=== PATIENT | male | born 1955 | race American Indian/Alaskan Native ===

== ENCOUNTER 2019-01-28 18:30 | Inpatient (IN) | payer MEDICARE ==
[2019-01-28] MEDS ORDERED: LASIX IV ONE (18:42)
[2019-01-28] MEDS ORDERED: DUONEB *Not for PRN Use IH ONE ×2 (18:51→18:52)
--- NOTE | 2019-01-28 19:03 | Emergency Department Report ---
ED Shortness of Breath HPI - General Chief Complaint: Chest Pain Stated Complaint: CHEST PAIN/EARNESTINE Time Seen by Provider: 01/28/19 18:36 Source: patient, EMS Mode of arrival: Stretcher Limitations: No Limitations - History of Present Illness Initial Comments: Mr. Reeder is 63 yo male with hx of CHF, COPD, HTN, CVA, Atrial Flutter, seizure disorder, CKD, CAD, who presents with shortness of breath for one day, leg swelling for several months worse over the past 2 weeks. He has swelling from feet to lower abdomen. No cough. Minimal nondescript chest pain. Mr. Reeder was prescribed 80 milligrams daily of furosemide. However the pharmacy only provided 40 mg dosing. EMS administered albuterol nebulizer, nitroglycerin, aspirin and 40 mg IV fur osemide. PCP Dr. Casas Cardiology Dr. Louis BROWN Complaint: shortness of breath - Related Data Home Medications Medication Instructions Recorded Confirmed Last Taken Minoxidil 10 mg PO DAILY 05/24/15 08/01/18 07/31/18 Pravastatin [Pravachol (Nf)] 40 mg PO DAILY 08/01/18 08/01/18 07/31/18 Warfarin Sodium [Jantoven] 7.5 mg PO DAILY 08/01/18 08/01/18 07/31/18 Previous Rx's Medication Instructions Recorded Last Taken Type Albuterol *Only Ed* [Proventil 2.5 mg IH PRN PRN #90 nebu 05/25/15 07/31/18 Rx 0.5% NEBS] Aspirin 81 mg PO DAILY #30 tab.chew 06/15/18 07/31/18 Rx Furosemide [Lasix TAB] 40 mg PO QDAY #30 tablet 06/15/18 07/31/18 Rx Lisinopril [Zestril TAB] 40 mg PO QDAY #30 tablet 06/15/18 07/31/18 Rx Metoprolol [Lopressor TAB] 100 mg PO DAILY #30 tablet 06/15/18 07/31/18 Rx amLODIPine [Norvasc] 10 mg PO DAILY #30 tablet 06/15/18 07/31/18 Rx HYDROcodone/HOMATROP 5-1.5 10 ml PO Q6H PRN 3 Days #1 udc 08/05/18 Unknown Rx [HYDROcodone-Homatropin 5-1.5 mg per 5 ML] Prednisone [predniSONE 10 mg 10 mg PO .TAPER #1 tab.ds.pk 08/05/18 Unknown Rx (6-Day Pack, 21 Tabs)] dilTIAZem CD [Cardizem CD] 120 mg PO QDAY #30 capsule 08/05/18 Unknown Rx Allergies Allergy/AdvReac Type Severity Reaction Status Date / Time No Known Allergies Allergy Verified 10/12/13 04:55 ED Review of Systems ROS: Stated complaint: CHEST PAIN/EARNESTINE Other details as noted in HPI Comment: All other systems reviewed and negative Constitutional: malaise Respiratory: shortness of breath Cardiovascular: chest pain, edema ED Past Medical Hx - Past Medical History Previous Medical History?: Yes Hx Hypertension: Yes Hx CVA: Yes Hx Heart Attack/AMI: Yes (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, last 2009) Hx Congestive Heart Failure: Yes Hx Diabetes: No Hx Deep Vein Thrombosis: Yes Hx Pulmonary Embolism: No Hx Renal Disease: Yes (acute renal failure) Hx Arthritis: Yes Hx Seizures: Yes () Hx Asthma: No Hx COPD: Yes Hx Tuberculosis: No Hx Dementia: No Hx HIV: No Additional medical history: Heart Stent x 3 - Surgical History Hx Coronary Stent: Yes (x3) Hx Open Heart Surgery: Yes (CABG 2 bypass) Hx Pacemaker: No Hx Internal Defibrillator: No Hx Cholecystectomy: No Hx Breast Surgery: No - Social History Smoking Status: Current Every Day Smoker - Medications Home Medications: Home Medications Medication Instructions Recorded Confirmed Last Taken Type Minoxidil 10 mg PO DAILY 05/24/15 08/01/18 07/31/18 History Albuterol *Only Ed* [Proventil 2.5 mg IH PRN PRN #90 nebu 05/25/15 08/01/18 07/31/18 Rx 0.5% NEBS] Aspirin 81 mg PO DAILY #30 tab.chew 06/15/18 08/01/18 07/31/18 Rx Furosemide [Lasix TAB] 40 mg PO QDAY #30 tablet 06/15/18 08/01/18 07/31/18 Rx Lisinopril [Zestril TAB] 40 mg PO QDAY #30 tablet 06/15/18 08/01/18 07/31/18 Rx Metoprolol [Lopressor TAB] 100 mg PO DAILY #30 tablet 06/15/18 08/01/18 07/31/18 Rx amLODIPine [Norvasc] 10 mg PO DAILY #30 tablet 06/15/18 08/01/18 07/31/18 Rx Pravastatin [Pravachol (Nf)] 40 mg PO DAILY 08/01/18 08/01/18 07/31/18 History Warfarin Sodium [Jantoven] 7.5 mg PO DAILY 08/01/18 08/01/18 07/31/18 History HYDROcodone/HOMATROP 5-1.5 10 ml PO Q6H PRN 3 Days #1 udc 08/05/18 Unknown Rx [HYDROcodone-Homatropin 5-1.5 mg per 5 ML] Prednisone [predniSONE 10 mg 10 mg PO .TAPER #1 tab.ds.pk 08/05/18 Unknown Rx (6-Day Pack, 21 Tabs)] dilTIAZem CD [Cardizem CD] 120 mg PO QDAY #30 capsule 08/05/18 Unknown Rx ED Physical Exam - General Limitations: No Limitations General appearance: alert, in no apparent distress - Head Head exam: Present: atraumatic, normocephalic - Eye Eye exam: Present: normal appearance - ENT ENT exam: Present: mucous membranes moist - Neck Neck exam: Present: normal inspection, full ROM - Respiratory Respiratory exam: Present: respiratory distress, wheezes, rales, decreased breath sounds. Absent: chest wall tenderness, accessory muscle use, prolonged expiratory - Cardiovascular Cardiovascular Exam: Present: regular rate, normal rhythm, normal heart sounds. Absent: rubs, gallop - GI/Abdominal GI/Abdominal exam: Present: soft, other (abdominal wall edema). Absent: distended, tenderness, guarding, rebound - Extremities Exam Extremities exam: Present: other (pitting edema from feet to thigh to abdomen with lichenification) - Back Exam Back exam: Present: normal inspection - Neurological Exam Neurological exam: Present: alert, oriented X3 - Psychiatric Psychiatric exam: Present: normal affect, normal mood - Skin Skin exam: Present: warm, dry, intact, normal color. Absent: rash ED Course Vital Signs 01/28/19 01/28/19 01/28/19 18:41 18:45 18:54 Temperature Pulse Rate 104 H Pulse Rate [ 96 H Anterior Bilateral Throughout] Respiratory 17 14 Rate Respiratory 18 Rate [Anterior Bilateral Throughout] Blood Pressure O2 Sat by Pulse 97 Oximetry 01/28/19 01/28/19 01/28/19 19:00 19:12 20:09 Temperature 98.3 F Pulse Rate 92 H 90 Pulse Rate [ Anterior Bilateral Throughout] Respiratory 17 Rate Respiratory Rate [Anterior Bilateral Throughout] Blood Pressure 154/82 152/81 O2 Sat by Pulse 100 Oximetry ED Medical Decision Making - Lab Data Result diagrams: 01/28/19 18:49 01/28/19 18:49 - EKG Data 01/28/19 19:04 EKG obtained 1841 Atrial fibrillation rate 95 beats normal axis nonspecific T wave pattern widened QRS - Radiology Data Radiology results: report reviewed, image reviewed interpreted by me: AP portable chest: Cardiomegaly and alveolar edema no infiltrate no effusion - Medical Decision Making Mr. Reeder presents with acute respiratory failure, hypoxia requiring oxygen supplementation. Acute CHF evident with pulmonary edema and anasarca. Hx of COPD and tobacco abuse also contributing factors. Treated with IV furosemide, bronchodilator therapy, steroids. Admitted in fair condition. Admitted to the service of Dr. Cassa. I provided bridging orders. Critical care attestation.: If time is entered above; I have spent that time in minutes in the direct care of this critically ill patient, excluding procedure time. ED Disposition Clinical Impression: Acute respiratory failure with hypoxia, Acute exacerbation of CHF (congestive heart failure), COPD with acute exacerbation Disposition: OP ADMIT IP TO THIS HOSP Is pt being admited?: Yes Does the pt Need Aspirin: No Condition: Stable
[2019-01-28 19:09] LABS: Basophils # (Auto) 0.1 K/mm3 (0.0-0.1); Basophils % (Auto) 0.8 % (0.0-1.8); Eosinophils # (Auto) 0.1 K/mm3 (0.0-0.4); Eosinophils % (Auto) 0.9 % (0.0-4.3); Hematocrit 32.6 % (35.5-45.6); Hemoglobin 10.4 gm/dl (11.8-15.2); Lymphocytes # (Auto) 1.2 K/mm3 (1.2-5.4); Lymphocytes % (Auto) 16.1 % (13.4-35.0); Mean Corpuscular HGB Conc 32 % (32-34); Mean Corpuscular Volume 82 fl (84-94); Monocytes # (Auto) 0.9 K/mm3 (0.0-0.8); Monocytes % (Auto) 12.2 % (0.0-7.3); Platelet Count 247 K/mm3 (140-440); Red Blood Count 3.95 M/mm3 (3.65-5.03); Red Cell Distribution Width 18.2 % (13.2-15.2)
[2019-01-28 19:29] LABS: Alanine Aminotransferase 15 units/L (7-56); Albumin 3.9 g/dL (3.9-5); BUN/Creatinine Ratio 19; Blood Urea Nitrogen 25 mg/dL (9-20); Calcium 9.1 mg/dL (8.4-10.2); Hemolysis Index 13
[2019-01-28 19:43] LABS: INR 2.39 (0.87-1.13)
[2019-01-28] MEDS ORDERED: DELTASONE PO ONE (19:51)
[2019-01-28] MEDS ORDERED: LOPRESSOR PO ONE (19:51)
--- NOTE | 2019-01-28 19:59 | XRay Report ---
PROCEDURE: Chest. TECHNIQUE: Portable AP view. HISTORY: Dyspnea . COMPARISONS: Chest 08/03/2018. Dictation not available. FINDINGS: The heart size is enlarged. There is moderate tortuosity of the thoracic aorta. The lungs are clear a nd well expanded. There are no pleural effusions. The soft tissues are unremarkable. Median sternotom y wires are present. IMPRESSION: Cardiomegaly. This document is electronically signed by Justo Fisher MD., January 28 2019 07:56:46 PM ET
--- NOTE | 2019-01-28 22:01 | History and Physical Report ---
History of Present Illness Date of examination: 01/28/19 Date of admission: 01/28/19 20:23 Chief complaint: Shortness of breath, chest pain, swelling of the lower extremities - 2-3 weeks duration History of present illness: Patient is a 63-year-old gentleman who has a history of COPD, CHF with ejection fraction of 30-45% on 06/06/18, CVA, atrial fibrillation, hypertension, seizure disorder, coronary artery disease status post stent placement and subsequent CABG in 2008, tobacco use disorder, seizure disorder presented emergency department for progressively worsening shortness of breath that started 2-3 weeks ago. Has associated chest pain that is dull and substernal in location, nonexertional. No radiation. Not associated with diaphoresis. Has cough that is productive of whitish sputum. Has dyspnea on slight exertion. Has been having progressively worsening swelling of the lower extremities as well as the abdomen. Patient continues to smoke about a pack of cigarettes a day for the past 40 years. Presented to the emergency department on account of worsening symptoms. At the emergency department, proBNP was 2995. ABG was remarkable for hypoxia with pulse ox of 76. Patient was therapeutic with his INR with level of 2.39. Chest x-ray shows evidence of cardiomegaly without any infiltrate or pulmonary congestion. EKG showed Afib. First level of troponin T was normal. Admisson was requested for further evaluation and treatments. Past History Past Medical History: atrial fib, CAD, COPD, heart failure, hypertension Past Surgical History: CABG Social history: smoking. denies: alcohol abuse Family history: other (breast cancer and leukemia in his sister and brother respectively) Medications and Allergies Allergies Allergy/AdvReac Type Severity Reaction Status Date / Time No Known Allergies Allergy Verified 10/12/13 04:55 Home Medications Medication Instructions Recorded Confirmed Last Taken Type Minoxidil 10 mg PO DAILY 05/24/15 01/28/19 07/31/18 History Albuterol *Only Ed* [Proventil 2.5 mg IH PRN PRN #90 nebu 05/25/15 01/28/19 07/31/18 Rx 0.5% NEBS] Aspirin 81 mg PO DAILY #30 tab.chew 06/15/18 01/28/19 07/31/18 Rx Furosemide [Lasix TAB] 40 mg PO QDAY #30 tablet 06/15/18 01/28/19 07/31/18 Rx Lisinopril [Zestril TAB] 40 mg PO QDAY #30 tablet 06/15/18 01/28/19 07/31/18 Rx Metoprolol [Lopressor TAB] 100 mg PO DAILY #30 tablet 06/15/18 01/28/19 07/31/18 Rx amLODIPine [Norvasc] 10 mg PO DAILY #30 tablet 06/15/18 01/28/19 01/28/19 Rx 0800 Pravastatin [Pravachol (Nf)] 40 mg PO DAILY 08/01/18 01/28/19 07/31/18 History Warfarin Sodium [Jantoven] 7.5 mg PO DAILY 08/01/18 01/28/19 07/31/18 History HYDROcodone/HOMATROP 5-1.5 10 ml PO Q6H PRN 3 Days #1 udc 08/05/18 01/28/19 Unknown Rx [HYDROcodone-Homatropin 5-1.5 mg per 5 ML] dilTIAZem CD [Cardizem CD] 120 mg PO QDAY #30 capsule 08/05/18 Unknown Rx Clonidine HCl [Catapres] 0.3 mg PO BID 01/28/19 01/28/19 Unknown History Review of Systems Constitutional: weight gain Ears, nose, mouth and throat: no ear pain, no ear discharge, no tinnitis, no decreased hearing Cardiovascular: chest pain, orthopnea, palpitations, edema, shortness of breath, dyspnea on exertion, no lightheadedness Respiratory: cough, cough with sputum, shortness of breath, dyspnea on exertion Gastrointestinal: no abdominal pain, no nausea, no vomiting, no diarrhea, no constipation Genitourinary Male: no dysuria, no flank pain, no nocturia Musculoskeletal: no neck stiffness, no neck pain, no low back pain Integumentary: no rash, no pruritis, no redness, no sores Neurological: no paralysis, no weakness, no parathesias, no ataxia Psychiatric: no anxiety, no memory loss, no change in sleep habits Exam - Physical Exam Narrative exam: Constitutional: Well-nourished well-developed. In no distress Head: Normocephalic atraumatic Eyes: Pupils are equal round and reactive to light Nose: No enlarged turbinates, no septal deviation. Mouth: Moist mucous membranes. Neck: Supple no thyromegaly. No bruit. No JVD Heart: Regular rate and rhythm, S1-S2 normal. No rubs murmurs or gallop Lungs: Clear to auscultation bilaterally. no rales or rhonchi Abdomen: Soft, nontender. Bowel sound are present. Extremities: 2+ pedal edema, no cyanosis, no clubbing. Neuro: Alert oriented Oriented x3. No focal sensory or motor deficit. Skin: No rashes or hyperpigmented spots Musculoskeletal system: No joint pain or swelling Hematological: No petechia or subcutanous hemorrhages. Immunological: No multiple septic spots on the skin Lymphatic: No generalized lymphadenopathy Psychiatry: Euthymic. Calm. - Constitutional Vitals: Temp Pulse Resp BP Pulse Ox 98.3 F 98 H 20 157/88 97 01/28/19 19:12 01/28/19 21:15 01/28/19 21:15 01/28/19 21:15 01/28/19 21:15 Results - Labs CBC & Chem 7: 01/29/19 04:38 01/29/19 04:38 Labs: Abnormal lab results 01/28/19 01/28/19 01/28/19 Range/Units 18:49 18:49 18:49 Hgb 10.4 L (11.8-15.2) gm/dl Hct 32.6 L (35.5-45.6) % MCV 82 L (84-94) fl MCH 26 L (28-32) pg RDW 18.2 H (13.2-15.2) % [place] % (Auto) 12.2 H (0.0-7.3) % [place] # 0.9 H (0.0-0.8) K/mm3 PT (12.2-14.9) Sec. INR (0.87-1.13) POC ABG pH (7.35-7.45) POC ABG pO2 (80-105) BUN 25 H (9-20) mg/dL Glucose 123 H (75-100) mg/dL NT-Pro-B Natriuret Pep 2995 H (0-900) pg/mL 01/28/19 01/28/19 Range/Units 19:13 20:54 Hgb (11.8-15.2) gm/dl Hct (35.5-45.6) % MCV (84-94) fl MCH (28-32) pg RDW (13.2-15.2) % [place] % (Auto) (0.0-7.3) % [place] # (0.0-0.8) K/mm3 PT 27.7 H (12.2-14.9) Sec. INR 2.39 H (0.87-1.13) POC ABG pH 7.456 H (7.35-7.45) POC ABG pO2 76 L (80-105) BUN (9-20) mg/dL Glucose (75-100) mg/dL NT-Pro-B Natriuret Pep (0-900) pg/mL Assessment and Plan Patient is a 63-year-old gentleman who has a history of COPD, CHF with ejection fraction of 30-45% on 06/06/18, CVA, atrial fibrillation, hypertension, seizure disorder, coronary artery disease status post stent placement and subsequent CABG in 2008, tobacco use disorder, seizure disorder presented emergency department for progressively worsening shortness of breath that started 2-3 weeks ago. Just been today that was resistant and location, nonexertional. No radiation. Not associated with diaphoresis. Has cough that is productive of whitish sputum. Hasn't now presents with right dyspnea. Has been having progressively worsening swelling of the lower extremities as well as the abdomen. Patient continues to smoke about a progressive pack of cigarettes a day for the past 40 years. Presented emergency department on account of worsening symptoms. At the emergency department, proBNP was 2995. ABG was remarkable for hypoxia with pulse ox of 76. Patient was therapeutic with his Coumadin level of 2.39. Chest x-ray shows evidence of cardiomegaly without any infiltrate or pulmonary congestion. Troponin T x 2 were normal. Admission was requested for further evaluation and treatments. - Acute on chronic combined Systolic and diastolic heart failure with exacer bation Daily weights, strict input and output, IV furosemide, potassium supplement, 80s, beta blockers, - COPD with exacerbation Bronchodilators, Supplemental oxygen, - Chest pain Serial cardiac enzymes Aspirin, nitroglycerin, beta loretta, statins, - Afib Rate controlled on Cardizem andticoagulated eith Coumadin and therapeutic on INR - Coronary artery disease status post CABG Aspirin, beta blockers, Acei, statins -Hypoglycemia Obtain A1c -Atrial fibrillation, status post ablation Currently rate controlled Continue with anticoagulation Therapeutic on Coumadin with INR of 2.48 - Pulmonary hypertension Stable - History of seizure Patient has been seizure-free for many months and has not been on any antiseizure medication - CODE STATUS: Patient is full Code - DVT and GI prophylaxis continue with Coumadin. Commenced IV Pepcid. - Disposition: Per hospital course Time spent 40 minutes in direct patient care, review of laboratory and radiological data as well as previous records, lab
[2019-01-28] MEDS ORDERED: NON-FORMULARY (Albuterol *Only Ed* [Proventil 0.5% Nebs] 2.5 MG) IH PRN (22:22)
[2019-01-28] MEDS ORDERED: NON-FORMULARY (Clonidine Hcl [Catapres] 0.3 MG) PO SCH (22:30)
[2019-01-28] MEDS: COUMADIN PO SCH (22:41)
[2019-01-28] MEDS: NON-FORMULARY PO SCH (23:37)
[2019-01-29 06:09] LABS: Hematocrit 29.6 % (35.5-45.6); Hemoglobin 9.5 gm/dl (11.8-15.2); Mean Corpuscular HGB Conc 32 % (32-34); Mean Corpuscular Volume 82 fl (84-94); Platelet Count 225 K/mm3 (140-440); Red Cell Distribution Width 17.8 % (13.2-15.2)
[2019-01-29 06:15] LABS: INR 2.46 (0.87-1.13)
[2019-01-29 06:28] LABS: Alanine Aminotransferase 14 units/L (7-56); Albumin 3.3 g/dL (3.9-5); BUN/Creatinine Ratio 18; Blood Urea Nitrogen 22 mg/dL (9-20); Calcium 8.8 mg/dL (8.4-10.2); Hemolysis Index 0
--- NOTE | 2019-01-29 08:42 | Progress Note ---
Assessment and Plan Patient is a 63-year-old gentleman who has a history of COPD, CHF with ejection fraction of 30-45% on 06/06/18, CVA, atrial fibrillation, hypertension, seizure disorder, coronary artery disease status post stent placement and subsequent CA BG in 2008, tobacco use disorder, seizure disorder presented emergency department for progressively worsening shortness of breath that started 2-3 weeks ago. Has associated chest pain that is dull and substernal in location, nonexertional. No radiation. Not associated with diaphoresis. Has cough that is productive of whitish sputum. Has dyspnea on slight exertion. Has been having progressively worsening swelling of the lower extremities as well as the abdomen. Patient continues to smoke about a pack of cigarettes a day for the past 40 years. Presented to the emergency department on account of worsening symptoms. At the emergency department, proBNP was 2995. ABG was remarkable for hypoxia with pulse ox of 76. Patient was therapeutic with his INR with level of 2.39. Chest x-ray shows evidence of cardiomegaly without any infiltrate or pulmonary congestion. EKG showed Afib. First level of troponin T was normal. Admission was requested for further evaluation and treatments. - Acute on chronic combined Systolic and diastolic heart failure with exacerbation ECHO of 06/06/18 showed EF of 30-45% Daily weights, strict input and output, Conitnue with IV furosemide, potassium supplement, 80s, beta blockers, - COPD with exacerbation Bronchodilators, Supplemental oxygen, - Chest pain Troponin T x 2 nl Continue with Aspirin, nitroglycerin, beta loretta, statins, - Coronary artery disease status post CABG Aspirin, beta blockers, Acei, statins Cardiiology consulted - Anemia Of chronic disease trend h/H -Hypoglycemia Obtain A1c - History of atrial fibrillation, status post ablation Currently rate controlled Continue with anticoagulation Therapeutic on Coumadin with INR of 2.48 - Pulmonary hypertension Stable - History of seizure Patient has been seizure-free for many months and has not been on any antiseizure medication - CODE STATUS: Patient is from Court - DVT and GI prophylaxis continue with Coumadin. Commenced IV Pepcid. Time spent 40 minutes in direct patient care review Subjective Date of service: 01/29/19 Principal diagnosis: Acute on chronic combine systolic and diastolic HF, COPD, Pul HTN Interval history: Still having shortness of breath. No more chest pain Objective - Exam Narrative Exam: Constitutional: Well-nourished well-developed. In no distress Head: Normocephalic atraumatic Eyes: Pupils are equal round and reactive to light Nose: No enlarged turbinates, no septal deviation. Mouth: Moist mucous membranes. Neck: Supple no thyromegaly. No bruit. No JVD Heart: Regular rate and rhythm, S1-S2 normal. No rubs murmurs or gallop Lungs: Clear to auscultation bilaterally. no rales or rhonchi Abdomen: Soft, nontender. Bowel sound are present. Extremities: 2+ pedal edema, no cyanosis, no clubbing. Neuro: Alert oriented Oriented x3. No focal sensory or motor deficit. Skin: No rashes or hyperpigmented spots Musculoskeletal system: No joint pain or swelling Hematological: No petechia or subcutanous hemorrhages. Immunological: No multiple septic spots on the skin Lymphatic: No generalized lymphadenopathy Psychiatry: Euthymic. Calm. - Constitutional Vitals: Vital Signs - 12hr 01/28/19 01/28/19 01/28/19 20:45 21:00 21:15 Temperature Pulse Rate 86 87 98 H Respiratory 27 H 32 H 20 Rate Blood Pressure 151/83 157/88 157/88 O2 Sat by Pulse 95 95 97 Oximetry 01/28/19 01/28/19 01/28/19 21:30 21:45 22:00 Temperature Pulse Rate 69 89 82 Respiratory 21 15 19 Rate Blood Pressure 146/86 146/86 163/97 O2 Sat by Pulse 95 98 95 Oximetry 01/28/19 01/28/19 01/29/19 22:15 22:43 02:03 Temperature 97.7 F 98.0 F Pulse Rate 77 80 68 Respiratory 21 19 18 Rate Blood Pressure 155/97 171/102 142/88 O2 Sat by Pulse 95 95 94 Oximetry 01/29/19 04:13 Temperature 97.4 F L Pulse Rate 76 Respiratory 19 Rate Blood Pressure 142/84 O2 Sat by Pulse 93 Oximetry - Labs CBC & Chem 7: 01/29/19 04:38 01/29/19 04:38 Labs: Abnormal lab results 01/28/19 01/28/19 01/28/19 Range/Units 18:49 18:49 18:49 RBC (3.65-5.03) M/mm3 Hgb 10.4 L (11.8-15.2) gm/dl Hct 32.6 L (35.5-45.6) % MCV 82 L (84-94) fl MCH 26 L (28-32) pg RDW 18.2 H (13.2-15.2) % [place] % (Auto) 12.2 H (0.0-7.3) % [place] # 0.9 H (0.0-0.8) K/mm3 PT (12.2-14.9) Sec. INR (0.87-1.13) POC ABG pH (7.35-7.45) POC ABG pO2 (80-105) BUN 25 H (9-20) mg/dL Glucose 123 H (75-100) mg/dL NT-Pro-B Natriuret Pep 2995 H (0-900) pg/mL Albumin (3.9-5) g/dL 01/28/19 01/28/19 01/29/19 Range/Units 19:13 20:54 04:38 RBC 3.60 L (3.65-5.03) M/mm3 Hgb 9.5 L (11.8-15.2) gm/dl Hct 29.6 L (35.5-45.6) % MCV 82 L (84-94) fl MCH 27 L (28-32) pg RDW 17.8 H (13.2-15.2) % [place] % (Auto) (0.0-7.3) % [place] # (0.0-0.8) K/mm3 PT 27.7 H (12.2-14.9) Sec. INR 2.39 H (0.87-1.13) POC ABG pH 7.456 H (7.35-7.45) POC ABG pO2 76 L (80-105) BUN (9-20) mg/dL Glucose (75-100) mg/dL NT-Pro-B Natriuret Pep (0-900) pg/mL Albumin (3.9-5) g/dL 01/29/19 01/29/19 Range/Units 04:38 04:38 RBC (3.65-5.03) M/mm3 Hgb (11.8-15.2) gm/dl Hct (35.5-45.6) % MCV (84-94) fl MCH (28-32) pg RDW (13.2-15.2) % [place] % (Auto) (0.0-7.3) % [place] # (0.0-0.8) K/mm3 PT 28.4 H (12.2-14.9) Sec. INR 2.46 H (0.87-1.13) POC ABG pH (7.35-7.45) POC ABG pO2 (80-105) BUN 22 H (9-20) mg/dL Glucose 163 H (75-100) mg/dL NT-Pro-B Natriuret Pep (0-900) pg/mL Albumin 3.3 L (3.9-5) g/dL
[2019-01-29 08:53] LABS: Basophils % (Manual) 0 % (0.0-1.8); Eosinophils % (Manual) 0 % (0.0-4.3); Total Cells Counted 100
[2019-01-29 08:54] LABS: Anisocytosis 1+; Platelet Estimate Consistent w Auto; Tear Drop Cells Rare
[2019-01-29] MEDS ORDERED: COUMADIN PO SCH (10:00)
[2019-01-29] MEDS ORDERED: ASPIRIN PO SCH (10:00)
[2019-01-29] MEDS ORDERED: CARDIZEM CD PO SCH ×2 (10:00→10:30)
[2019-01-29] MEDS ORDERED: LASIX IV SCH (10:00)
[2019-01-29] MEDS ORDERED: LOPRESSOR PO SCH ×2 (10:00→22:00)
[2019-01-29] MEDS: NON-FORMULARY PO SCH (10:24)
[2019-01-29] MEDS: NITRO DUR TD SCH (10:25)
[2019-01-29] MEDS: LONITEN PO SCH (10:26)
[2019-01-29] MEDS: ZESTRIL PO SCH (10:28)
[2019-01-29] MEDS: PRAVACHOL PO SCH (10:28)
[2019-01-29] MEDS: NORVASC PO SCH (10:29)
[2019-01-29] MEDS: CATAPRES PO SCH ×2 (10:46→22:04)
--- NOTE | 2019-01-29 12:22 | Vascular Lab Report ---
PROCEDURE: VL ARTERIAL DUPLEX LE RT TECHNIQUE: Duplex Doppler ultrasound of the right lower extremity arteries was performed with image documentation. HISTORY: Numbness and Ulceration COMPARISONS: None . FINDINGS: RIGHT LOWER EXTREMITY: Arterial waveforms: Triphasic within the right distal external iliac artery, common femoral artery a nd deep femoral artery. Monophasic waveforms were seen within the right superficial femoral, poplitea l, posterior tibial, anterior tibial and dorsalis pedis arteries. Thrombus: None . Stenosis: See below . Color signal: Normal . Significant segmental velocity differential: Focally elevated peak systolic velocity is seen within the right distal superficial femoral artery with a peak systolic velocity measuring up to 221 cm/s . Atherosclerotic plaque is seen scattered throughout the right lower extremity arteries. Incidentally the left distal posterior tibial artery, anterior tibial artery and dorsalis pedis arter ies were patent demonstrating monophasic waveforms. Calcified atherosclerotic plaque is seen within t hese arteries. IMPRESSION: Right lower extremity peripheral arterial disease with probable focal stenosis of the ri ght distal superficial femoral artery. This document is electronically signed by Naya Villanueva., January 29 2019 12:19:54 PM ET
--- NOTE | 2019-01-29 12:45 | Consultation ---
History of Present Illness Consult date: 01/29/19 Requesting physician: DISHA MANCINI Consult reason: congestive heart failure History of present illness: The pt is a 63 YO male with a past medical history of HFrEF, CMP, CAD s/p PCI and CABG in 2007, s/p AFlutter ablation in 07/2015, AFib, anticoagulated with coumadin, HTN, CKD, COPD, tobacco use. He is followed in our office by Dr. Myers. He presented with c/o progressively worsening SOB and BLE swelling (up into the thighs) for 2-3 weeks prior to arrival. He denies any chest pain, palpitations, n/v, diaphoresis, dizziness or syncope. Echo done 05/2018 showed EF 35-40%, abnormal diastolic function, LA severely dilated, RV systolic function mildly reduced, RA mod dilated, pulm HTN with RVSP 50mmHg. Lexiscan MPI stress test done 05/2018 was negative for ischemia, EF 39%. Past History Past Medical History: atrial fib, CAD, COPD, heart failure, hypertension Past Surgical History: CABG Social history: smoking. denies: alcohol abuse Family history: other (breast cancer and leukemia in his sister and brother respectively) Medications and Allergies Allergies Allergy/AdvReac Type Severity Reaction Status Date / Time No Known Allergies Allergy Verified 10/12/13 04:55 Home Medications Medication Instructions Recorded Confirmed Last Taken Type Minoxidil 10 mg PO DAILY 05/24/15 01/28/19 07/31/18 History Albuterol *Only Ed* [Proventil 2.5 mg IH PRN PRN #90 nebu 05/25/15 01/28/19 07/31/18 Rx 0.5% NEBS] Aspirin 81 mg PO DAILY #30 tab.chew 06/15/18 01/28/19 07/31/18 Rx Furosemide [Lasix TAB] 40 mg PO QDAY #30 tablet 06/15/18 01/28/19 07/31/18 Rx Lisinopril [Zestril TAB] 40 mg PO QDAY #30 tablet 06/15/18 01/28/19 07/31/18 Rx Metoprolol [Lopressor TAB] 100 mg PO DAILY #30 tablet 06/15/18 01/28/19 07/31/18 Rx amLODIPine [Norvasc] 10 mg PO DAILY #30 tablet 06/15/18 01/28/19 01/28/19 Rx 0800 Pravastatin [Pravachol (Nf)] 40 mg PO DAILY 08/01/18 01/28/19 07/31/18 History Warfarin Sodium [Jantoven] 7.5 mg PO DAILY 08/01/18 01/28/19 07/31/18 History HYDROcodone/HOMATROP 5-1.5 10 ml PO Q6H PRN 3 Days #1 udc 08/05/18 01/28/19 Unknown Rx [HYDROcodone-Homatropin 5-1.5 mg per 5 ML] dilTIAZem CD [Cardizem CD] 120 mg PO QDAY #30 capsule 08/05/18 Unknown Rx Clonidine HCl [Catapres] 0.3 mg PO BID 01/28/19 01/28/19 Unknown History Active Meds: Active Medications Albuterol (Proventil) 2.5 mg IH Q4HRT PRN PRN Reason: Shortness Of Breath Amlodipine Besylate (Norvasc) 10 mg PO DAILY [facility] Last Admin: 01/29/19 10:29 Dose: 10 mg Documented by: Aspirin (Aspirin) 325 mg PO QDAY [facility] Last Admin: 01/29/19 10:28 Dose: 325 mg Documented by: Clonidine HCl (Catapres) 0.3 mg PO BID [facility] Last Admin: 01/29/19 10:46 Dose: Not Given Documented by: Diltiazem HCl (Cardizem Cd) 120 mg PO QDAY [facility] Last Admin: 01/29/19 10:39 Dose: 120 mg Documented by: Furosemide (Lasix) 40 mg IV QDAY [facility] Last Admin: 01/29/19 10:30 Dose: 40 mg Documented by: Lisinopril (Zestril) 40 mg PO QDAY [facility] Last Admin: 01/29/19 10:28 Dose: 40 mg Documented by: Metoprolol Tartrate (Lopressor) 100 mg PO DAILY [facility] Last Admin: 01/29/19 10:29 Dose: 100 mg Documented by: Minoxidil (Loniten) 10 mg PO DAILY [facility] Last Admin: 01/29/19 10:26 Dose: 10 mg Documented by: Nitroglycerin (Nitro Dur) 0.2 mg TD QDAY@0600 [facility] Last Admin: 01/29/19 10:25 Dose: 0.2 mg Documented by: Pravastatin Sodium (Pravachol) 40 mg PO DAILY [facility] Last Admin: 01/29/19 10:28 Dose: 40 mg Documented by: Warfarin Sodium (Coumadin) 7.5 mg PO DAILY@1700 [facility] Last Admin: 01/28/19 22:41 Dose: 7.5 mg Documented by: Review of Systems Constitutional: no fever, no chills, no sweats Ears, nose, mouth and throat: no ear pain, no nose pain, no sinus pressure, no sinus pain Cardiovascular: orthopnea, edema, shortness of breath, dyspnea on exertion, paroxysmal nocturnal dyspnea, leg edema, no chest pain, no palpitations, no rapid/irregular heart beat, no syncope, no lightheadedness Respiratory: shortness of breath, dyspnea on exertion, no cough, no congestion, no wheezing, no pain on inspiration Gastrointestinal: no abdominal pain, no nausea, no vomiting, no diarrhea, no constipation, no change in bowel habits Genitourinary Male: no dysuria, no hematuria, no flank pain, no discharge, no urinary frequency, no urinary hesitancy Musculoskeletal: no neck stiffness, no neck pain, no shooting arm pain, no arm numbness/tingling, no low back pain Integumentary: no rash, no pruritis, no redness, no sores, no wounds Neurological: no head injury, no paralysis, no weakness, no parathesias, no numbness, no tingling, no seizures, no syncope Psychiatric: no anxiety Endocrine: no cold intolerance, no heat intolerance Hematologic/Lymphatic: no easy bruising, no easy bleeding Allergic/Immunologic: no urticaria, no wheezing Physical Examination Vital Signs Resp 17 01/28/19 18:41 General appearance: no acute distress HEENT: Positive: PERRL, Normocephaly, Mucus Membranes Moist Neck: Positive: neck supple, trachea midline Cardiac: Positive: irregularly irregular, S1/S2, Systolic Murmur Lungs: Positive: Decreased Breath Sounds Neuro: Positive: Grossly Intact Abdomen: Positive: Soft. Negative: Tender Skin: Negative: Rash Musculoskeletal: No Pain Extremities: Present: +2 Edema (BLE) Results 01/29/19 04:38 01/29/19 04:38 Cardiac Enzymes 01/28/19 01/29/19 Range/Units 18:49 04:38 AST 23 19 (5-40) units/L Coagulation 01/28/19 01/29/19 Range/Units 19:13 04:38 PT 27.7 H 28.4 H (12.2-14.9) Sec. INR 2.39 H 2.46 H (0.87-1.13) CBC 01/28/19 01/29/19 Range/Units 18:49 04:38 WBC 7.5 5.2 (4.5-11.0) K/mm3 RBC 3.95 3.60 L (3.65-5.03) M/mm3 Hgb 10.4 L 9.5 L (11.8-15.2) gm/dl Hct 32.6 L 29.6 L (35.5-45.6) % Plt Count 247 225 (140-440) K/mm3 Lymph # 1.2 (1.2-5.4) K/mm3 [place] # 0.9 H (0.0-0.8) K/mm3 Eos # 0.1 (0.0-0.4) K/mm3 Baso # 0.1 (0.0-0.1) K/mm3 Comprehensive Metabolic Panel 01/28/19 01/29/19 Range/Units 18:49 04:38 Sodium 145 144 (137-145) mmol/L Potassium 3.7 3.9 (3.6-5.0) mmol/L Chloride 107.0 104.8 (98-107) mmol/L Carbon Dioxide 25 24 (22-30) mmol/L BUN 25 H 22 H (9-20) mg/dL Creatinine 1.3 1.2 (0.8-1.5) mg/dL Glucose 123 H 163 H (75-100) mg/dL Calcium 9.1 8.8 (8.4-10.2) mg/dL AST 23 19 (5-40) units/L ALT 15 14 (7-56) units/L Alkaline Phosphatase 79 73 (35-129) units/L Total Protein 7.0 6.8 (6.3-8.2) g/dL Albumin 3.9 3.3 L (3.9-5) g/dL - Imaging and Cardiology Echo: report reviewed (05/2018 showed EF 35-40%, abnormal diastolic function, LA severely dilated, RV systolic function mildly reduced, RA mod dilated, pulm HTN with RVSP 50mmHg. ) EKG: report reviewed, image reviewed EKG interpretations - Telemetry EKG Rhythm: Atrial Fibrillation - EKG Supraventricular dysrhythmia: atrial fibrillation Assessment and Plan Increase IV lasix to BID and resume home cardiac regimen. F/u echo. Further recs to follow per hospital course. The patient has been seen in conjunction with Dr. Bundy who agrees with the assessment and plan of care. - Patient Problems (1) Acute on chronic HFrEF (heart failure with reduced ejection fraction) Current Visit: Yes Status: Acute (2) Cardiomyopathy Current Visit: Yes Status: Chronic (3) CAD (coronary artery disease) Current Visit: Yes Status: Chronic Qualifiers: Coronary Disease-Associated Artery/Lesion type: [place] artery Associated angina: without angina (4) Hx of CABG Current Visit: Yes Status: Chronic (5) Stented coronary artery Current Visit: Yes Status: Chronic (6) Atrial fibrillation Current Visit: Yes Status: Chronic (7) S/P ablation of atrial flutter Current Visit: Yes Status: Chronic (8) Anticoagulated on Coumadin Current Visit: Yes Status: Chronic (9) Anemia Current Visit: Yes Status: Chronic Qualifiers: Other causes of anemia: nutritional, unspecified Qualified Code(s): D53.9 - Nutritional anemia, unspecified (10) COPD (chronic obstructive pulmonary disease) Current Visit: Yes Status: Chronic (11) Chronic kidney disease Current Visit: Yes Status: Chronic (12) Accelerated hypertension Current Visit: Yes Status: Acute
[2019-01-29] MEDS: COUMADIN PO SCH (18:18)
[2019-01-29] MEDS: LASIX IV SCH (18:18)
[2019-01-30] MEDS: NITRO DUR TD SCH (05:39)
[2019-01-30 06:04] LABS: Basophils % (Auto) 0.8 % (0.0-1.8); Eosinophils # (Auto) 0.1 K/mm3 (0.0-0.4); Eosinophils % (Auto) 1.7 % (0.0-4.3); Hematocrit 29.4 % (35.5-45.6); Hemoglobin 9.6 gm/dl (11.8-15.2); Lymphocytes # (Auto) 1.2 K/mm3 (1.2-5.4); Lymphocytes % (Auto) 28.9 % (13.4-35.0); Mean Corpuscular HGB Conc 33 % (32-34); Mean Corpuscular Volume 83 fl (84-94); Monocytes # (Auto) 0.7 K/mm3 (0.0-0.8); Monocytes % (Auto) 15.8 % (0.0-7.3); Platelet Count 203 K/mm3 (140-440); Red Blood Count 3.56 M/mm3 (3.65-5.03); Red Cell Distribution Width 18.3 % (13.2-15.2)
[2019-01-30 06:13] LABS: INR 3.41 (0.87-1.13)
[2019-01-30 06:24] LABS: Albumin 3.4 g/dL (3.9-5); Calcium 8.8 mg/dL (8.4-10.2)
[2019-01-30] MEDS: LASIX IV SCH (06:34)
--- NOTE | 2019-01-30 09:24 | Progress Note ---
Assessment and Plan - Patient Problems (1) Bradycardia with 31-40 beats per minute Current Visit: Yes Status: Acute Plan to address problem: Current medications were reviewed clonidine discontinued or carotid to monitor blood pressure and heart rate of clonidine patient also off BETA loretta we'll hold off on any discharge plans until heart rate was stable (2) Accelerated hypertension Current Visit: Yes Status: Acute Plan to address problem: Improve her blood pressure on current medications reported to monitor closely (3) Acute on chronic HFrEF (heart failure with reduced ejection fraction) Current Visit: Yes Status: Acute Plan to address problem: Improving shortness of breath, or lower extremity edema also improvement. We'll consider to monitor her urinary output as well as renal function, we'll hold off on diuretics as upward trending of creatinine is noted. Increasing creatinine will hold diuretics at this time (4) Acute respiratory failure with hypoxia Current Visit: Yes Status: Acute (5) Atrial fibrillation Current Visit: Yes Status: Chronic Plan to address problem: Controlled ventricular rates patient noted to be bradycardic at this time will continue to adjust current regimen for optimal control Subjective Date of service: 01/30/19 Principal diagnosis: Acute on chronic combine systolic and diastolic HF, COPD, Pul HTN Interval history: Patient seen and examined, chart reviewed, patient denied any new complaints besides undergoing lower extremity swelling, denied chest pain or shortness of breath Objective - Constitutional Vitals: Vital Signs - 12hr 01/29/19 01/29/19 01/30/19 23:52 23:54 05:10 Temperature 97.6 F Pulse Rate 41 L 45 L Respiratory 20 22 Rate Blood Pressure 103/74 116/75 O2 Sat by Pulse 100 95 Oximetry 01/30/19 01/30/19 01/30/19 05:11 05:39 07:05 Temperature 97.9 F 97.6 F Pulse Rate 40 L 72 Respiratory 18 Rate Blood Pressure 99/63 O2 Sat by Pulse 85 Oximetry General appearance: Present: no acute distress - EENT Eyes: PERRL - Neck Neck: supple - Respiratory Respiratory effort: normal Respiratory: bilateral: diminished, rales - Cardiovascular Heart Sounds: Present: S1 & S2 Extremities: normal temperature, normal color Extremity abnormal: edema - Gastrointestinal General gastrointestinal: Present: soft, non-tender, non-distended Rectal Exam: deferred - Integumentary Integumentary: warm - Musculoskeletal Musculoskeletal: strength equal bilaterally - Neurologic Neurologic: CNII-XII intact - Psychiatric Psychiatric: appropriate mood/affect - Labs CBC & Chem 7: 01/30/19 05:25 01/30/19 05:25 Labs: Abnormal lab results 01/30/19 01/30/19 01/30/19 Range/Units 05:25 05:25 05:25 WBC 4.2 L (4.5-11.0) K/mm3 RBC 3.56 L (3.65-5.03) M/mm3 Hgb 9.6 L (11.8-15.2) gm/dl Hct 29.4 L (35.5-45.6) % MCV 83 L (84-94) fl MCH 27 L (28-32) pg RDW 18.3 H (13.2-15.2) % [place] % (Auto) 15.8 H (0.0-7.3) % PT 33.9 H (12.2-14.9) Sec. INR 3.41 H (0.87-1.13) BUN 22 H (9-20) mg/dL Glucose 109 H (75-100) mg/dL Albumin 3.4 L (3.9-5) g/dL
[2019-01-30] MEDS: BABY ASPIRIN PO SCH (09:28)
[2019-01-30] MEDS: PRAVACHOL PO SCH (09:28)
[2019-01-30] MEDS: LONITEN PO SCH (09:28)
--- NOTE | 2019-01-30 09:28 | Progress Note ---
Assessment and Plan acute respiratory failure acute systolic heart failure acute renal insufficency htn afib with slow ventricular response rec: stop clondine stop all av blocking agents, add hydralzine and imdur and transition to po lasix in view of rising renal insufficency and hold coumadin today in view of inr, no pauses Subjective Date of service: 01/30/19 Principal diagnosis: Acute on chronic combine systolic and diastolic HF, COPD, Pul HTN Interval history: pt sob has improved, no lightheadedness or syncope Objective Vital Signs Temp Pulse Resp BP Pulse Ox 01/30/19 07:05 97.6 F 72 18 99/63 85 01/30/19 05:39 40 L 01/30/19 05:11 97.9 F 01/30/19 05:10 45 L 22 116/75 95 01/29/19 23:54 97.6 F 01/29/19 23:52 41 L 20 103/74 100 01/29/19 20:15 22 01/29/19 20:14 97.9 F 01/29/19 20:13 78 20 150/90 96 01/29/19 10:00 100 - Physical Examination General: No Apparent Distress HEENT: Positive: PERRL, Normocephaly, Mucus Membranes Moist Neck: Positive: neck supple, trachea midline Cardiac: Positive: Bradycardia Lungs: Positive: clear to auscultation Neuro: Positive: Grossly Intact Abdomen: Positive: Soft. Negative: Tender Skin: Negative: Rash Musculoskeletal: No Pain Extremities: Present: +1 Edema - Labs and Meds Cardiac Enzymes 01/30/19 Range/Units 05:25 AST 19 (5-40) units/L Coagulation 01/30/19 Range/Units 05:25 PT 33.9 H (12.2-14.9) Sec. INR 3.41 H (0.87-1.13) CBC 01/30/19 Range/Units 05:25 WBC 4.2 L (4.5-11.0) K/mm3 RBC 3.56 L (3.65-5.03) M/mm3 Hgb 9.6 L (11.8-15.2) gm/dl Hct 29.4 L (35.5-45.6) % Plt Count 203 (140-440) K/mm3 Lymph # 1.2 (1.2-5.4) K/mm3 [place] # 0.7 (0.0-0.8) K/mm3 Eos # 0.1 (0.0-0.4) K/mm3 Baso # 0.0 (0.0-0.1) K/mm3 Comprehensive Metabolic Panel 01/30/19 Range/Units 05:25 Sodium 144 (137-145) mmol/L Potassium 4.2 (3.6-5.0) mmol/L Chloride 103.7 (98-107) mmol/L Carbon Dioxide 29 (22-30) mmol/L BUN 22 H (9-20) mg/dL Creatinine 1.5 (0.8-1.5) mg/dL Glucose 109 H (75-100) mg/dL Calcium 8.8 (8.4-10.2) mg/dL AST 19 (5-40) units/L ALT 13 (7-56) units/L Alkaline Phosphatase 69 (35-129) units/L Total Protein 6.4 (6.3-8.2) g/dL Albumin 3.4 L (3.9-5) g/dL - Imaging and Cardiology EKG: report reviewed, image reviewed Nuclear stress test: report reviewed (05/2108 negative lexiscan no ischemia ef 38%) Echo: report reviewed (05/2018 showed EF 35-40%, abnormal diastolic function, LA severely dilated, RV systolic function mildly reduced, RA mod dilated, pulm HTN with RVSP 50mmHg. ) - Telemetry EKG Rhythm: Sinus Bradycardia (afib in 30's no pauses)
[2019-01-30] MEDS: IMDUR PO SCH (10:15)
[2019-01-30] MEDS: NORVASC PO SCH (10:16)
[2019-01-30] MEDS: ZESTRIL PO SCH (10:34)
[2019-01-30 10:47] LABS: Hematocrit 28.8 % (35.5-45.6); Hemoglobin 9.2 gm/dl (11.8-15.2); Mean Corpuscular HGB Conc 32 % (32-34); Mean Corpuscular Volume 83 fl (84-94); Platelet Count 197 K/mm3 (140-440); Red Blood Count 3.48 M/mm3 (3.65-5.03); Red Cell Distribution Width 18.2 % (13.2-15.2)
[2019-01-30 12:36] LABS: Basophils % (Manual) 0 % (0.0-1.8); Total Cells Counted 100
[2019-01-30 12:37] LABS: Hypochromasia Few; Platelet Estimate Consistent w Auto; Target Cells Rare
[2019-01-30] MEDS: APRESOLINE PO SCH ×2 (14:33→22:03)
[2019-01-30] MEDS: LASIX PO SCH (20:08)
[2019-01-31 03:38] LABS: Hematocrit 27.7 % (35.5-45.6); Hemoglobin 8.8 gm/dl (11.8-15.2); Mean Corpuscular HGB Conc 32 % (32-34); Mean Corpuscular Volume 82 fl (84-94); Platelet Count 182 K/mm3 (140-440); Red Blood Count 3.36 M/mm3 (3.65-5.03); Red Cell Distribution Width 17.7 % (13.2-15.2)
[2019-01-31 03:42] LABS: Alanine Aminotransferase 12 units/L (7-56); BUN/Creatinine Ratio 19; Blood Urea Nitrogen 26 mg/dL (9-20); Calcium 8.5 mg/dL (8.4-10.2); Hemolysis Index 6
[2019-01-31 03:52] LABS: INR 2.66 (0.87-1.13)
[2019-01-31] MEDS: APRESOLINE PO SCH ×3 (05:44→21:11)
[2019-01-31] MEDS: LASIX PO SCH ×2 (06:08→17:14)
[2019-01-31 08:47] LABS: Hematocrit 28.8 % (35.5-45.6); Hemoglobin 9.2 gm/dl (11.8-15.2); Mean Corpuscular HGB Conc 32 % (32-34); Mean Corpuscular Volume 83 fl (84-94); Platelet Count 166 K/mm3 (140-440); Red Blood Count 3.45 M/mm3 (3.65-5.03); Red Cell Distribution Width 18.3 % (13.2-15.2)
[2019-01-31 09:55] LABS: BUN/Creatinine Ratio TNR; Blood Urea Nitrogen TNR mg/dL (9-20)
[2019-01-31 09:56] LABS: Alanine Aminotransferase TNR units/L (7-56); Albumin TNR g/dL (3.9-5); Calcium TNR mg/dL (8.4-10.2); Hemolysis Index TNR
[2019-01-31 11:26] LABS: Alanine Aminotransferase 14 units/L (7-56); Albumin 3.4 g/dL (3.9-5); BUN/Creatinine Ratio 20; Blood Urea Nitrogen 26 mg/dL (9-20); Calcium 8.6 mg/dL (8.4-10.2); Hemolysis Index 0
[2019-01-31] MEDS: LONITEN PO SCH (11:37)
[2019-01-31] MEDS: ZESTRIL PO SCH (11:37)
[2019-01-31] MEDS: NORVASC PO SCH (11:38)
[2019-01-31] MEDS: PRAVACHOL PO SCH (11:38)
[2019-01-31] MEDS: BABY ASPIRIN PO SCH (11:38)
[2019-01-31] MEDS: IMDUR PO SCH (11:38)
[2019-01-31 11:44] LABS: Basophils % (Manual) 0 % (0.0-1.8); Hypochromasia Few; Platelet Estimate Consistent w Auto; Target Cells Few; Total Cells Counted 100
[2019-01-31 12:05] LABS: Total Cells Counted 100
[2019-01-31 12:06] LABS: Anisocytosis Few; Hypochromasia Few; Ovalocytes Few; Platelet Estimate Consistent w Auto; Poikilocytosis Few; Target Cells Rare
--- NOTE | 2019-01-31 12:12 | Progress Note ---
Assessment and Plan acute respiratory failure acute systolic heart failure acute renal insufficency htn afib with slow ventricular response rec: Patient's heart rate has improved off the clonidine and metoprolol patient had one2.3 second pause while sleeping and heart rate in the 30s while sleeping. Patient will ambulate and discussed with nurses document heart rate with activity echo shows normal LV function moderate RV dysfunction with pulmonary hypertension we will hold on IV diuretics continue Lasix 40 twice a day patient's swelling , patient does not have symptomatic bradycardias hasn't in for pacemaker will document appropriate chronotropic response with activity. Possible discharge in a.m. if stable Subjective Date of service: 01/31/19 Principal diagnosis: Acute on chronic combine systolic and diastolic HF, COPD, Pul HTN Interval history: pt has no chest pain and sob has improved Objective Vital Signs Temp Pulse Resp BP BP Pulse Ox 01/31/19 10:17 97.9 F 48 L 20 142/79 99 01/31/19 04:59 97.5 F L 01/31/19 04:57 65 20 145/87 100 01/31/19 01:06 46 L 135/72 99 01/30/19 23:17 97.7 F 01/30/19 23:16 63 18 153/95 96 01/30/19 22:03 53 L 164/94 01/30/19 20:44 97.5 F L 52 L 20 164/94 99 01/30/19 20:42 59 L 20 100 01/30/19 19:55 50 L 20 01/30/19 15:20 97.7 F 50 L 19 129/83 98 - Physical Examination General: No Apparent Distress HEENT: Positive: PERRL, Normocephaly, Mucus Membranes Moist Neck: Positive: neck supple, trachea midline Cardiac: Positive: Irregularly Regular Lungs: Positive: clear to auscultation Neuro: Positive: Grossly Intact Abdomen: Positive: Soft. Negative: Tender Skin: Negative: Rash Musculoskeletal: No Pain Extremities: Present: +1 Edema - Labs and Meds Cardiac Enzymes 01/31/19 01/31/19 01/31/19 Range/Units 03:01 07:40 10:22 AST 18 TNR 18 (5-40) units/L Coagulation 01/31/19 Range/Units 03:01 PT 27.9 H (12.2-14.9) Sec. INR 2.66 H (0.87-1.13) CBC 01/31/19 01/31/19 Range/Units 03:01 07:40 WBC 3.9 L 4.0 L (4.5-11.0) K/mm3 RBC 3.36 L 3.45 L (3.65-5.03) M/mm3 Hgb 8.8 L 9.2 L (11.8-15.2) gm/dl Hct 27.7 L 28.8 L (35.5-45.6) % Plt Count 182 166 (140-440) K/mm3 Comprehensive Metabolic Panel 01/31/19 01/31/19 01/31/19 Range/Units 03:01 07:40 10:22 Sodium 139 TNR 140 (137-145) mmol/L Potassium 4.3 TNR 4.3 (3.6-5.0) mmol/L Chloride 101.2 TNR 100.9 (98-107) mmol/L Carbon Dioxide 30 TNR 29 (22-30) mmol/L BUN 26 H TNR 26 H (9-20) mg/dL Creatinine 1.4 TNR 1.3 (0.8-1.5) mg/dL Glucose 99 TNR 119 H (75-100) mg/dL Calcium 8.5 TNR 8.6 (8.4-10.2) mg/dL AST 18 TNR 18 (5-40) units/L ALT 12 TNR 14 (7-56) units/L Alkaline Phosphatase 69 TNR 76 (35-129) units/L Total Protein 6.0 L TNR 6.2 L (6.3-8.2) g/dL Albumin 3.0 L TNR 3.4 L (3.9-5) g/dL - Imaging and Cardiology EKG: report reviewed, image reviewed Echo: report reviewed (05/2018 showed EF 35-40%, abnormal diastolic function, LA severely dilated, RV systolic function mildly reduced, RA mod dilated, pulm HTN with RVSP 50mmHg. ) - Telemetry EKG Rhythm: Atrial Fibrillation (patient at average heart rate is 80 fibrillation in the 50s while sleeping goes down to the 30s and 40s had one +2.3 seconds)
--- NOTE | 2019-01-31 15:52 | Progress Note ---
Assessment and Plan - Patient Problems (1) Bradycardia with 31-40 beats per minute Current Visit: Yes Status: Acute Plan to address problem: Heart rate noted as improved on clonidine and beta loretta however heart rest 2 drops into the 30s with patient sleeping will observe additional day off the medication (2) Accelerated hypertension Current Visit: Yes Status: Acute Plan to address problem: Improve her blood pressure on current medications reported to monitor closely (3) Acute on chronic HFrEF (heart failure with reduced ejection fraction) Current Visit: Yes Status: Acute Plan to address problem: Improving shortness of breath, or lower extremity edema also improvement. Patient on oral diuretic at this time Lasix at 40 mg twice daily continue to m onitor urinary output as well as serum creatinine (4) Acute respiratory failure with hypoxia Current Visit: Yes Status: Acute (5) Atrial fibrillation Current Visit: Yes Status: Chronic Plan to address problem: Controlled ventricular rates patient noted to be bradycardic at this time will continue to adjust current regimen for optimal control Subjective Date of service: 01/31/19 Principal diagnosis: Acute on chronic combine systolic and diastolic HF, COPD, Pul HTN Interval history: Patient seen and examined denied any new complaints less short of breath stay her flexibility but improving patient denied any chest pain Objective - Constitutional Vitals: Vital Signs - 12hr 01/31/19 01/31/19 01/31/19 04:57 04:59 10:17 Temperature 97.5 F L 97.9 F Pulse Rate 65 48 L Respiratory 20 20 Rate Blood Pressure 145/87 142/79 O2 Sat by Pulse 100 99 Oximetry 01/31/19 13:01 Temperature 98.6 F Pulse Rate 68 Respiratory 20 Rate Blood Pressure 154/87 O2 Sat by Pulse 94 Oximetry General appearance: Present: no acute distress - EENT Eyes: PERRL ENT: hearing intact Ears: bilateral: normal - Neck Neck: supple, normal ROM - Respiratory Respiratory: bilateral: diminished, rales - Cardiovascular Rhythm: irregularly irregular Extremities: pulses symmetrical Extremity abnormal: edema, pulses diminished - Gastrointestinal General gastrointestinal: Present: soft, non-tender, normal bowel sounds Rectal Exam: deferred - Genitourinary Male genitourinary: deferred - Integumentary Integumentary: warm (bilateral stasis dermatitis in both lower extremities) - Musculoskeletal Musculoskeletal: strength equal bilaterally - Neurologic Neurologic: CNII-XII intact - Psychiatric Psychiatric: appropriate mood/affect - Labs CBC & Chem 7: 01/31/19 07:40 01/31/19 10:22 Labs: Abnormal lab results 01/31/19 01/31/19 01/31/19 Range/Units 03:01 03:01 03:01 WBC 3.9 L (4.5-11.0) K/mm3 RBC 3.36 L (3.65-5.03) M/mm3 Hgb 8.8 L (11.8-15.2) gm/dl Hct 27.7 L (35.5-45.6) % MCV 82 L (84-94) fl MCH 26 L (28-32) pg RDW 17.7 H (13.2-15.2) % Monocytes % (Manual) 13.0 H (0.0-7.3) % Lymphocytes # (Manual) (1.2-5.4) K/mm3 PT 27.9 H (12.2-14.9) Sec. INR 2.66 H (0.87-1.13) BUN 26 H (9-20) mg/dL Glucose (75-100) mg/dL Total Protein 6.0 L (6.3-8.2) g/dL Albumin 3.0 L (3.9-5) g/dL 01/31/19 01/31/19 Range/Units 07:40 10:22 WBC 4.0 L (4.5-11.0) K/mm3 RBC 3.45 L (3.65-5.03) M/mm3 Hgb 9.2 L (11.8-15.2) gm/dl Hct 28.8 L (35.5-45.6) % MCV 83 L (84-94) fl MCH 27 L (28-32) pg RDW 18.3 H (13.2-15.2) % Monocytes % (Manual) 16.0 H (0.0-7.3) % Lymphocytes # (Manual) 0.8 L (1.2-5.4) K/mm3 PT (12.2-14.9) Sec. INR (0.87-1.13) BUN 26 H (9-20) mg/dL Glucose 119 H (75-100) mg/dL Total Protein 6.2 L (6.3-8.2) g/dL Albumin 3.4 L (3.9-5) g/dL
[2019-01-31] MEDS ORDERED: COUMADIN PO SCH (17:00)
[2019-01-31 17:15] LABS: BUN/Creatinine Ratio 19; Blood Urea Nitrogen 25 mg/dL (9-20); Hemolysis Index 1
[2019-02-01] MEDS ORDERED: APRESOLINE IV ONE (01:35)
[2019-02-01] MEDS: PROVENTIL IH PRN ×2 (04:49→08:41)
[2019-02-01] MEDS: APRESOLINE PO SCH ×3 (05:23→21:57)
[2019-02-01] MEDS: LASIX PO SCH ×2 (05:23→18:21)
[2019-02-01 06:07] LABS: INR 1.66 (0.87-1.13)
[2019-02-01] MEDS: PRAVACHOL PO SCH (09:15)
[2019-02-01] MEDS: ZESTRIL PO SCH (09:15)
[2019-02-01] MEDS: IMDUR PO SCH (09:16)
[2019-02-01] MEDS: LONITEN PO SCH (09:16)
[2019-02-01] MEDS: BABY ASPIRIN PO SCH (09:16)
[2019-02-01] MEDS: NORVASC PO SCH (09:16)
[2019-02-01] MEDS: HEPARIN/ 0.45% NACL-25,000 UNIT/500 ML 25,000 UNIT/500 ML BAG IV SCH (12:39)
[2019-02-01 13:22] LABS: Hematocrit 30.5 % (35.5-45.6); Hemoglobin 9.9 gm/dl (11.8-15.2)
--- NOTE | 2019-02-01 14:18 | Progress Note ---
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 He had 2.3sec pause with HR in 30s while sleeping over the weekend and thus his home clonidine and lopressor were held. Pt is currently in AFib with HR 100s, he was noted to have AFib SVR with HR low of 29bpm and AFib RVR with HR 180s overnight, no pauses noted overnight. Pt states he didn't sleep at all last night as his clonidine has been held and he relies on this medication to help him sleep. Will obtain EP consultation for possible PPM. Pt states that if PPM were indicated, he would agree to PPM implantation. Will hold home Coumadin and initiate heparin gtt pending EP consultation. Continue management of HF, pt appears to be nearing euvolemia. The patient has been seen in conjunction with Dr. Nohemi Khan who agrees with the assessment and plan of care. - Patient Problems (1) Acute on chronic HFrEF (heart failure with reduced ejection fraction) Current Visit: Yes Status: Acute (2) Cardiomyopathy Current Visit: Yes Status: Chronic (3) Tachy-trisha syndrome Current Visit: Yes Status: Acute (4) CAD (coronary artery disease) Current Visit: Yes Status: Chronic Qualifiers: Coronary Disease-Associated Artery/Lesion type: [place] artery Associated angina: without angina (5) Hx of CABG Current Visit: Yes Status: Chronic (6) Stented coronary artery Current Visit: Yes Status: Chronic (7) Atrial fibrillation Current Visit: Yes Status: Chronic (8) S/P ablation of atrial flutter Current Visit: Yes Status: Chronic (9) Anticoagulated on Coumadin Current Visit: Yes Status: Chronic (10) Anemia Current Visit: Yes Status: Chronic Qualifiers: Other causes of anemia: nutritional, unspecified Qualified Code(s): D53.9 - Nutritional anemia, unspecified (11) COPD (chronic obstructive pulmonary disease) Current Visit: Yes Status: Chronic (12) Chronic kidney disease Current Visit: Yes Status: Chronic (13) Accelerated hypertension Current Visit: Yes Status: Acute Subjective Date of service: 02/01/19 Principal diagnosis: Acute on chronic combine systolic and diastolic HF, COPD, Pul HTN Interval history: pt resting up at bedside, no current cardiac complaints. states he felt some palpitations overnight. tele reviewed - pt currently in AFib with HR 100s, he was noted to have AFib SVR with HR low of 29bpm and AFib RVR with HR 180s overnight, no pauses noted overnight. Pt states he didn't sleep all night as his clonidine has been held and he relies on this medication to help him sleep. Objective Last Vital Signs Temp 97.6 F 02/01/19 04:29 Pulse 88 02/01/19 13:38 Resp 20 02/01/19 09:01 BP 156/84 02/01/19 13:38 Pulse Ox 92 02/01/19 10:43 - Physical Examination General: No Apparent Distress HEENT: Positive: PERRL, Normocephaly, Mucus Membranes Moist Neck: Positive: neck supple, trachea midline Cardiac: Positive: irregularly irregular, S1/S2 Lungs: Positive: Decreased Breath Sounds Neuro: Positive: Grossly Intact Abdomen: Positive: Soft. Negative: Tender Skin: Negative: Rash Musculoskeletal: No Pain Extremities: Present: +1 Edema - Labs and Meds Coagulation 02/01/19 Range/Units 05:03 PT 19.2 H (12.2-14.9) Sec. INR 1.66 H (0.87-1.13) CBC 02/01/19 Range/Units 11:55 Hgb 9.9 L (11.8-15.2) gm/dl Hct 30.5 L (35.5-45.6) % Plt Count 206 (140-440) K/mm3 Comprehensive Metabolic Panel 01/31/19 Range/Units 16:26 Sodium 139 (137-145) mmol/L Potassium 4.4 (3.6-5.0) mmol/L Chloride 99.1 (98-107) mmol/L Carbon Dioxide 27 (22-30) mmol/L BUN 25 H (9-20) mg/dL Creatinine 1.3 (0.8-1.5) mg/dL Glucose 90 (75-100) mg/dL Calcium 9.0 (8.4-10.2) mg/dL - Imaging and Cardiology EKG: report reviewed, image reviewed Echo: report reviewed (05/2018 showed EF 35-40%, abnormal diastolic function, LA severely dilated, RV systolic function mildly reduced, RA mod dilated, pulm HTN with RVSP 50mmHg. )
[2019-02-01 14:33] LABS: INR 1.59 (0.87-1.13)
[2019-02-01 14:34] LABS: Partial Thromboplastin Time 31.9 Sec. (24.2-36.6)
[2019-02-01] MEDS ORDERED: COUMADIN PO SCH (17:00)
[2019-02-01] MEDS ORDERED: AMBIEN PO PRN (18:41)
--- NOTE | 2019-02-01 18:54 | Event Note ---
Date: 02/01/19 EP Consultation 63-year-old male Admitted with acute on chronic HFrEF 35-40/45-50 noted to have asymptomatic bradycardia 20's in setting of clonidine (per patient used or sleeping) and lopressor 50mg BID Atrial flutter ablation CAD/CABG PAD CKD CVA Hypertension COPD/Severe pulmonary hypertension RVSP 62mmHg Tobacco abuse seizure disorder Had a lengthy discussion with the patient he would rather not have a pacemaker placed at this time. I had discussed with the patient my concern of his significant bradycardia likely secondary to beta loretta and clonidine use. At this time the patient is willing to try something different to help with sleeping. It sounds like the patient suffers from significant insomnia. Additionally currently on telemetry the patient's atrial fibrillation is running in the 90s to low 100s. I agreed to a trial of a lower dose beta loretta. The patient is aware these efforts may not be effective and he might still require a dual-chamber permanent pacemaker.
[2019-02-01] MEDS: LOPRESSOR PO SCH (21:56)
[2019-02-02] MEDS: HEPARIN/ 0.45% NACL-25,000 UNIT/500 ML 25,000 UNIT/500 ML BAG IV SCH ×2 (05:04→10:00)
[2019-02-02] MEDS: LASIX PO SCH (05:06)
[2019-02-02] MEDS: APRESOLINE PO SCH (05:06)
[2019-02-02 06:18] LABS: INR 1.57 (0.87-1.13)
--- NOTE | 2019-02-02 09:15 | Progress Note ---
Assessment and Plan Patient is a 63-year-old gentleman who has a history of COPD, CHF with ejection fraction of 30-45% on 06/06/18, CVA, atrial fibrillation, hypertension, seizure disorder, coronary artery disease status post stent placement and subsequent CA BG in 2008, tobacco use disorder, seizure disorder presented emergency department for progressively worsening shortness of breath that started 2-3 weeks ago. Has associated chest pain that is dull and substernal in location, nonexertional. No radiation. Not associated with diaphoresis. Has cough that is productive of whitish sputum. Has dyspnea on slight exertion. Has been having progressively worsening swelling of the lower extremities as well as the abdomen. Patient continues to smoke about a pack of cigarettes a day for the past 40 years. Presented to the emergency department on account of worsening symptoms. At the emergency department, proBNP was 2995. ABG was remarkable for hypoxia with pulse ox of 76. Patient was therapeutic with his INR with level of 2.39. Chest x-ray shows evidence of cardiomegaly without any infiltrate or pulmonary congestion. EKG showed Afib. First level of troponin T was normal. Had symtomatic trisha. clonidien and beta blockers held. Symtpoms imporved. Cardiology consulted. Recommended low dose Betablocker and d/c clonidine. If symptoms reoccur, then pacemaker may be inserted. Shortness of breath has improved since admission. - Acute on chronic combined Systolic and diastolic heart failure with exacerbation ECHO of 06/06/18 showed EF of 30-45% Daily weights, strict input and output, Conitnue with IV furosemide, potassium supplement, 80s, beta blockers, - COPD with exacerbation Bronchodilators, Supplemental oxygen, - Chest pain - resolved Troponin T x 2 nl Continue with Aspirin, nitroglycerin,holding beta loretta, statins, - Coronary artery disease status post CABG Aspirin, beta blockers, Acei, statins Cardiiology consulted. ECHO showed EF of lV function at the lower limit of normal - Anemia Of chronic disease trend h/H -Hyperglycemia Obtain A1c - History of atrial fibrillation, status post ablation Currently rate controlled Continue with anticoagulation Therapeutic on Coumadin with INR of 2.48 - Pulmonary hypertension Stable - History of seizure Patient has been seizure-free for many months and has not been on any antiseizure medication - CODE STATUS: Patient is from [place] - DVT and GI prophylaxis continue with Coumadin. Commenced IV Pepcid. Time spent 40 minutes in direct patient care review Sidpositon d/c tomorrow after cardiology input regarding Pacemaker Subjective Date of service: 02/01/19 Principal diagnosis: Acute on chronic combine systolic and diastolic HF, COPD, Pul HTN Interval history: Still having shortness of breath improved. No chest pain. Objective - Exam Narrative Exam: Constitutional: Well-nourished well-developed. In no distress Head: Normocephalic atraumatic Eyes: Pupils are equal round and reactive to light Nose: No enlarged turbinates, no septal deviation. Mouth: Moist mucous membranes. Neck: Supple no thyromegaly. No bruit. No JVD Heart: Regular rate and rhythm, S1-S2 normal. No rubs murmurs or gallop Lungs: Clear to auscultation bilaterally. no rales or rhonchi Abdomen: Soft, nontender. Bowel sound are present. Extremities: 2+ pedal edema, no cyanosis, no clubbing. Neuro: Alert oriented Oriented x3. No focal sensory or motor deficit. Skin: No rashes or hyperpigmented spots Musculoskeletal system: No joint pain or swelling Hematological: No petechia or subcutanous hemorrhages. Immunological: No multiple septic spots on the skin Lymphatic: No generalized lymphadenopathy Psychiatry: Euthymic. Calm. - Constitutional Vitals: Vital Signs - 12hr 02/01/19 02/02/19 02/02/19 21:56 00:08 04:07 Temperature 97.6 F 97.5 F L Pulse Rate 86 82 47 L Respiratory 20 20 Rate Blood Pressure 152/82 122/65 O2 Sat by Pulse 90 97 Oximetry - Labs CBC & Chem 7: 02/01/19 11:55 01/31/19 16:26 Labs: Abnormal lab results 02/01/19 02/01/19 02/01/19 Range/Units 11:55 13:56 23:25 Hgb 9.9 L (11.8-15.2) gm/dl Hct 30.5 L (35.5-45.6) % PT 18.6 H (12.2-14.9) Sec. INR 1.59 H (0.87-1.13) Heparin Anti-Xa Level 0.10 L (0.3-0.7) U.I./ml 02/02/19 Range/Units 05:16 Hgb (11.8-15.2) gm/dl Hct (35.5-45.6) % PT 18.4 H (12.2-14.9) Sec. INR 1.57 H (0.87-1.13) Heparin Anti-Xa Level (0.3-0.7) U.I./ml
--- NOTE | 2019-02-02 09:22 | Progress Note ---
Assessment and Plan Patient is a 63-year-old gentleman who has a history of COPD, CHF with ejection fraction of 30-45% on 06/06/18, CVA, atrial fibrillation, hypertension, seizure disorder, coronary artery disease status post stent placement and subsequent CA BG in 2008, tobacco use disorder, seizure disorder presented emergency department for progressively worsening shortness of breath that started 2-3 weeks ago. Has associated chest pain that is dull and substernal in location, nonexertional. No radiation. Not associated with diaphoresis. Has cough that is productive of whitish sputum. Has dyspnea on slight exertion. Has been having progressively worsening swelling of the lower extremities as well as the abdomen. Patient continues to smoke about a pack of cigarettes a day for the past 40 years. Presented to the emergency department on account of worsening symptoms. At the emergency department, proBNP was 2995. ABG was remarkable for hypoxia with pulse ox of 76. Patient was therapeutic with his INR with level of 2.39. Chest x-ray shows evidence of cardiomegaly without any infiltrate or pulmonary congestion. EKG showed Afib. First level of troponin T was normal. Had symtomatic trisha. clonidien and beta blockers held. Symtpoms imporved. Cardiology consulted. Recommended low dose Betablocker and d/c clonidine. If symptoms reoccur, then pacemaker may be inserted. Shortness of breath has improved since admission. - Acute on chronic combined Systolic and diastolic heart failure with exacerbation ECHO of 06/06/18 showed EF of 30-45% Daily weights, strict input and output, Conitnue with IV furosemide, potassium supplement, 80s, beta blockers, - COPD with exacerbation Bronchodilators, Supplemental oxygen, - Chest pain - resolved Troponin T x 2 nl Continue with Aspirin, nitroglycerin,holding beta loretta, statins, - Coronary artery disease status post CABG Aspirin, beta blockers, Acei, statins Cardiiology consulted. ECHO showed EF of lV function at the lower limit of normal - Anemia Of chronic disease trend h/H -Hyperglycemia Obtain A1c - History of atrial fibrillation, status post ablation Currently rate controlled Continue with anticoagulation Therapeutic on Coumadin with INR of 2.48 - Pulmonary hypertension Stable - History of seizure Patient has been seizure-free for many months and has not been on any antiseizure medication - CODE STATUS: Patient is [place] - DVT and GI prophylaxis continue with Coumadin. Commenced IV Pepcid. Time spent 40 minutes in direct patient care review Sidpositon d/c tomorrow after cardiology input regarding Pacemaker Subjective Date of service: 02/02/19 Principal diagnosis: Acute on chronic combine systolic and diastolic HF, COPD, Pul HTN Interval history: Shortness of breath since improved. No chest pain. Symptomatic bradycardia has improved. Still having shortness of breath improved. No chest pain. Objective - Exam Narrative Exam: Constitutional: Well-nourished well-developed. In no distress Head: Normocephalic atraumatic Eyes: Pupils are equal round and reactive to light Nose: No enlarged turbinates, no septal deviation. Mouth: Moist mucous membranes. Neck: Supple no thyromegaly. No bruit. No JVD Heart: Irregularly irregular. No rubs murmurs or gallop Lungs: Clear to auscultation bilaterally. no rales or rhonchi Abdomen: Soft, nontender. Bowel sound are present. Extremities: 2+ pedal edema, no cyanosis, no clubbing. Neuro: Alert oriented Oriented x3. No focal sensory or motor deficit. Skin: No rashes or hyperpigmented spots Musculoskeletal system: No joint pain or swelling Hematological: No petechia or subcutanous hemorrhages. Immunological: No multiple septic spots on the skin Lymphatic: No generalized lymphadenopathy Psychiatry: Euthymic. Calm. - Constitutional Vitals: Vital Signs - 12hr 02/01/19 02/02/19 02/02/19 21:56 00:08 04:07 Temperature 97.6 F 97.5 F L Pulse Rate 86 82 47 L Respiratory 20 20 Rate Blood Pressure 152/82 122/65 O2 Sat by Pulse 90 97 Oximetry - Labs CBC & Chem 7: 02/01/19 11:55 01/31/19 16:26 Labs: Abnormal lab results 02/01/19 02/01/19 02/01/19 Range/Units 11:55 13:56 23:25 Hgb 9.9 L (11.8-15.2) gm/dl Hct 30.5 L (35.5-45.6) % PT 18.6 H (12.2-14.9) Sec. INR 1.59 H (0.87-1.13) Heparin Anti-Xa Level 0.10 L (0.3-0.7) U.I./ml 02/02/19 Range/Units 05:16 Hgb (11.8-15.2) gm/dl Hct (35.5-45.6) % PT 18.4 H (12.2-14.9) Sec. INR 1.57 H (0.87-1.13) Heparin Anti-Xa Level (0.3-0.7) U.I./ml
[2019-02-02] MEDS: ZESTRIL PO SCH (09:48)
--- NOTE | 2019-02-02 09:48 | Discharge Summary ---
Providers - Providers Date of Admission: 01/28/19 20:23 Date of discharge: 02/02/19 Attending physician: DISHA MANCINI 01/28/19 22:26 Consult to Physician [CONS] Routine Comment: Consulting Provider: KALIE JIANG Physician Instructions: Reason For Exam: Heart failure, Afib, CAD s/p CABG, Chest pain Primary care physician: DISHA MANCINI Hospitalization Reason for admission: acute on chronic systolic HF, COPD exacerbation, Condition: Stable Pertinent studies: EKG that showed atrial fibrillation Echocardiogram showed ejection fraction on 45-50% with systolic function in the lower limits of normal Arterial Doppler that showed focal narrowing of the right superficial femoral artery. Procedures: None Hospital course: Patient is a 63-year-old gentleman who has a history of COPD, CHF with ejection fraction of 30-45% on 06/06/18, CVA, atrial fibrillation, hypertension, seizure disorder, coronary artery disease status post stent placement and subsequent CABG in 2008, tobacco use disorder, seizure disorder presented emergency department for progressively worsening shortness of breath that started 2-3 weeks ago. Has associated chest pain that is dull and substernal in location, nonexertional. No radiation. Not associated with diaphoresis. Has cough that is productive of whitish sputum. Has dyspnea on slight exertion. Has been having progressively worsening swelling of the lower extremities as well as the abdomen. Patient continues to smoke about a pack of cigarettes a day for the past 40 years. Presented to the emergency department on account of worsening symptoms. At the emergency department, proBNP was 2995. ABG was remarkable for hypoxia with pulse ox of 76. Patient was therapeutic with his INR with level of 2.39. Chest x-ray shows evidence of cardiomegaly without any infiltrate or pulmonary congestion. EKG showed Afib. First level of troponin T was normal. Had symtomatic trisha. clonidien and beta blockers held. Symtpoms imporved. Cardiology consulted. Recommended low dose Betablocker and d/c clonidine. If symptoms reoccur, then pacemaker may be inserted. Shortness of breath has improved since admission. Patient has focal narrowing of the right superficial femoral artery from a chair Doppler was done. He's also to follow-up with vascular surgeons on outpatient basis as patient is asymptomatic at this point. Patient is discharge plan was explained including the follow-up with the vascular surgeon. He expressed understanding. Disposition: DC-01 TO HOME OR SELFCARE Time spent for discharge: 40 min - Discharge Diagnoses (1) Accelerated hypertension Status: Acute (2) Acute exacerbation of CHF (congestive heart failure) Status: Acute (3) Acute on chronic HFrEF (heart failure with reduced ejection fraction) Status: Acute (4) Acute respiratory failure with hypoxia Status: Acute (5) Bradycardia with 31-40 beats per minute Status: Acute (6) COPD with acute exacerbation Status: Acute Core Measure Documentation - Palliative Care Palliative Care/ Comfort Measures: Not Applicable - Core Measures Any of the following diagnoses?: none Exam - Physical Exam Narrative exam: Constitutional: Well-nourished well-developed. In no distress Head: Normocephalic atraumatic Eyes: Pupils are equal round and reactive to light Nose: No enlarged turbinates, no septal deviation. Mouth: Moist mucous membranes. Neck: Supple no thyromegaly. No bruit. No JVD Heart: Irregularly irregular. No rubs murmurs or gallop Lungs: Clear to auscultation bilaterally. no rales or rhonchi Abdomen: Soft, nontender. Bowel sound are present. Extremities: 2+ pedal edema, no cyanosis, no clubbing. Neuro: Alert oriented Oriented x3. No focal sensory or motor deficit. Skin: No rashes or hyperpigmented spots Musculoskeletal system: No joint pain or swelling Hematological: No petechia or subcutanous hemorrhages. Immunological: No multiple septic spots on the skin Lymphatic: No generalized lymphadenopathy Psychiatry: Euthymic. Calm. - Constitutional Vitals: Temp Pulse Resp BP Pulse Ox 97.5 F L 47 L 20 122/65 97 02/02/19 04:07 02/02/19 04:07 02/02/19 04:07 02/02/19 04:07 02/02/19 04:07 Plan Activity: fall precautions Weight Bearing Status: Non-Weight Bearing Diet: regular Follow up with: VAL HOLMAN MD [Staff Physician] - 7 Days DISHA MANCINI MD [Primary Care Provider] - 3 Days ANA NIÑO MD [Staff Physician] - 10 Days Forms: Warfarin Discharge Instruction Prescriptions: hydrALAZINE [Apresoline TAB] 50 mg PO Q8HR #90 tablet Aspirin [Aspirin BABY CHEW TAB] 81 mg PO QDAY #30 tab.chew ISOSORBIDE MONOnitrate [Imdur ER] 30 mg PO QDAY #30 tablet Furosemide [Lasix TAB] 40 mg PO 0600,1800 #30 tablet Metoprolol [Lopressor TAB] 12.5 mg PO BID #60 tablet amLODIPine [Norvasc] 10 mg PO DAILY #30 tablet ALBUTEROL NEB's [Proventil 0.083% NEBS] 2.5 mg IH Q4HRT PRN #200 nebu PRN Reason: Shortness Of Breath Temazepam 30 mg PO HS #30 capsule Lisinopril [Zestril TAB] 40 mg PO QDAY #30 tablet Lisinopril [Zestril TAB] 40 mg PO QDAY #30 tablet
[2019-02-02 09:49] VITALS: BP 140/74
[2019-02-02] MEDS: BABY ASPIRIN PO SCH (09:49)
[2019-02-02] MEDS: LOPRESSOR PO SCH (09:49)
[2019-02-02] MEDS: PRAVACHOL PO SCH (09:49)
[2019-02-02] MEDS: IMDUR PO SCH (09:49)
[2019-02-02] MEDS: NORVASC PO SCH (09:50)
[2019-02-02] MEDS: LONITEN PO SCH (09:50)
--- NOTE | 2019-02-02 14:57 | Progress Note ---
Assessment and Plan Tele reviewed - currently in AFib with HR 60s, bouts of RVR and SVR noted overnight with 2.1 sec pause this AM while sleeping, also 5 beat run NSVT overnight. EP consultation noted. Pt states that he slept well last night because he "took matters into his own hands". When asked to elaborate on that statement, he admitted that he took his home clonidine last night despite our recommendation to hold this medication. Additionally, he is vehemently refusing PPM if it were to become indicated, stating that he does not want any "contraption" in his chest. Pt states he would like to discharge home and plans to f/u as OP with Dr. Myers. Pt may discharge home from cardiology standpoint. Recommend holding AV darek blocking agents as pt is refusing PPM. Resume coumadin with tx INR 2-3. Recommend follow up in our office with Dr. Myers within 1-2 weeks of hospital discharge ([phone]). The patient has been seen in conjunction with Dr. Nohemi Khan who agrees with the assessment and plan of care. - Patient Problems (1) Acute on chronic HFrEF (heart failure with reduced ejection fraction) Status: Acute (2) Cardiomyopathy Status: Chronic (3) Tachy-trisha syndrome Status: Acute (4) CAD (coronary artery disease) Status: Chronic Qualifiers: Coronary Disease-Associated Artery/Lesion type: [place] artery Associated angina: without angina (5) Hx of CABG Status: Chronic (6) Stented coronary artery Status: Chronic (7) Atrial fibrillation Status: Chronic (8) S/P ablation of atrial flutter Status: Chronic (9) Anticoagulated on Coumadin Status: Chronic (10) Anemia Status: Chronic Qualifiers: Other causes of anemia: nutritional, unspecified Qualified Code(s): D53.9 - Nutritional anemia, unspecified (11) COPD (chronic obstructive pulmonary disease) Status: Chronic (12) Chronic kidney disease Status: Chronic (13) Accelerated hypertension Status: Acute (14) Pulmonary hypertension Status: Chronic Subjective Date of service: 02/02/19 Principal diagnosis: Acute on chronic combine systolic and diastolic HF, COPD, Pul HTN Interval history: pt resting in bed, no current cardiac complaints. tele reviewed - currently in AFib with HR 60s, bouts of RVR and SVR noted overnight with 2.1 sec pause this AM while sleeping, also 5 beat run NSVT overnight. Objective Last Vital Signs Temp 97.5 F L 02/02/19 08:31 Pulse 64 02/02/19 10:34 Resp 22 02/02/19 10:34 BP 140/74 02/02/19 09:52 Pulse Ox 89 02/02/19 11:38 - Physical Examination General: No Apparent Distress HEENT: Positive: PERRL, Normocephaly, Mucus Membranes Moist Neck: Positive: neck supple, trachea midline Cardiac: Positive: irregularly irregular, S1/S2 Lungs: Positive: Decreased Breath Sounds Neuro: Positive: Grossly Intact Abdomen: Positive: Soft. Negative: Tender Skin: Negative: Rash Musculoskeletal: No Pain Extremities: Present: +1 Edema - Labs and Meds Coagulation 02/02/19 Range/Units 05:16 PT 18.4 H (12.2-14.9) Sec. INR 1.57 H (0.87-1.13) - Imaging and Cardiology EKG: report reviewed, image reviewed Echo: report reviewed (05/2018 showed EF 35-40%, abnormal diastolic function, LA severely dilated, RV systolic function mildly reduced, RA mod dilated, pulm HTN with RVSP 50mmHg. )
== END 2019-02-02 12:46 | disposition home or self-care (01) | DRG 291 ==
LOC: ED 18:30 → 4A 20:23
PROVIDERS: ADMIT Family Medicine; ATTEND Family Medicine
PROC: 4A033R1 Measurement of Arterial Saturation, Peripheral, Percutaneous Approach (ICD-10-PCS; principal; 2019-01-28)
DX: I13.0 Hypertensive heart and chronic kidney disease with heart failure and stage 1 through stage 4 chronic kidney disease, or unspecified chronic kidney disease (principal); I50.43 Acute on chronic combined systolic (congestive) and diastolic (congestive) heart failure; J96.01 Acute respiratory failure with hypoxia; J44.1 Chronic obstructive pulmonary disease with (acute) exacerbation; I47.2 Ventricular tachycardia; I42.9 Cardiomyopathy, unspecified; I27.20 Pulmonary hypertension, unspecified; I48.91 Unspecified atrial fibrillation; I25.10 Atherosclerotic heart disease of native coronary artery without angina pectoris; G40.909 Epilepsy, unspecified, not intractable, without status epilepticus; I49.5 Sick sinus syndrome; N18.9 Chronic kidney disease, unspecified; I25.2 Old myocardial infarction; M19.90 Unspecified osteoarthritis, unspecified site; D63.8 Anemia in other chronic diseases classified elsewhere; F17.210 Nicotine dependence, cigarettes, uncomplicated; E16.2 Hypoglycemia, unspecified; I73.9 Peripheral vascular disease, unspecified; Z95.5 Presence of coronary angioplasty implant and graft; Z79.01 Long term (current) use of anticoagulants; Z95.1 Presence of aortocoronary bypass graft; Z86.718 Personal history of other venous thrombosis and embolism; Z86.73 Personal history of transient ischemic attack (TIA), and cerebral infarction without residual deficits; Z79.82 Long term (current) use of aspirin
CPT/HCPCS: 36415; 71045; 80048; 80053; 82803; 83735; 83880; 84484; 85007; 85014; 85018; 85025; 85049; 85520; 85610; 85730; 93005; 93010; 93306; 94640; 94760; 96374; G0378; A9270-GY; J0360; J1644; J1940; J7512

== ENCOUNTER 2020-06-05 15:17 | Observation (INO) | payer MEDICARE ==
--- NOTE | 2020-06-05 15:25 | Event Note ---
ED Screening Note Date of service: 06/05/20 Time: 15:24 ED Screening Note: c/o rectal blood x today hx of diverticulosis and CAD, currently on coumadin no abdominal tenderness to palpation on exam This initial assessment/diagnostic orders/clinical plan/treatment(s) is/are subject to change based on patients health status, clinical progression and re- assessment by fellow clinical providers in the ED. Further treatment and workup at subsequent clinical providers discretion. Patient/guardian urged not to elope from the ED as their condition may be serious if not clinically assessed and managed. Initial orders include: labs
[2020-06-05 15:50] LABS: Basophils % (Auto) 0.7 % (0.0-1.8); Eosinophils # (Auto) 0.1 K/mm3 (0.0-0.4); Hemoglobin 11.2 gm/dl (11.8-15.2); Lymphocytes # (Auto) 1.1 K/mm3 (1.2-5.4); Lymphocytes % (Auto) 19.8 % (13.4-35.0); Mean Corpuscular HGB Conc 34 % (32-34); Mean Corpuscular Volume 84 fl (84-94); Monocytes # (Auto) 0.7 K/mm3 (0.0-0.8); Monocytes % (Auto) 13.2 % (0.0-7.3); Platelet Count 234 K/mm3 (140-440); Red Blood Count 3.94 M/mm3 (3.65-5.03)
[2020-06-05 15:51] LABS: Red Cell Distribution Width 20.9 % (13.2-15.2)
[2020-06-05 16:01] LABS: INR 2.3 (0.87-1.13)
[2020-06-05 16:02] LABS: Partial Thromboplastin Time 33.8 Sec. (24.2-36.6)
[2020-06-05 16:08] LABS: Alanine Aminotransferase 16 units/L (7-56); Albumin 3.7 g/dL (3.9-5); BUN/Creatinine Ratio 13; Blood Urea Nitrogen 15 mg/dL (9-20); Calcium 9.2 mg/dL (8.4-10.2); Hemolysis Index 3
[2020-06-05] MEDS ORDERED: POTASSIUM CHLORIDE ER 20 MEQ TAB PO ONE (23:33)
--- NOTE | 2020-06-05 23:34 | Emergency Department Report ---
ED General Adult HPI - General Chief complaint: GI Bleed Stated complaint: ABD PAINS PUI?: No Time Seen by Provider: 06/05/20 15:21 Source: patient, RN notes reviewed, old records reviewed Mode of arrival: Ambulatory Limitations: No Limitations - History of Present Illness Initial comments: The patient was evaluated in the emergency department for symptoms described in the history of present illness. He/she was evaluated in the context of the global COVID-19 pandemic, which necessitated consideration that the patient might be at risk for infection with the virus that causes COVID-19. Institutional protocols and algorithms that pertain to the evaluation of patients at risk for COVID-19 are in a state of rapid change based on information released by regulatory bodies including the CDC and federal and state organizations. These policies and algorithms were followed during the patient's care in the emergency department. Please note that these policies, procedures and recommendations changed on a rapid basis. Patient is a 65-year-old gentleman. His past medical history includes permanent A. fib, on Coumadin therapy, gracia diverticulosis, as per colonoscopy in 2013, also has a history of COPD, CHF, peripheral artery disease. The patient presents to the ER today with complaints of dark maroon stool, present for the past 2 to 3 days. It is currently Friday morning, he states that the symptoms started on Friday. He reports that he had "a number of things to do" over the weekend, including "homework." He reports that he was able to complete all of his obligations, and thus presented to the emergency ro om yesterday. He denies headache, neck pain, chest pain, abdominal pain, he has chronic shortness of breath which is not a new, worsened or different, denies urinary symptoms, denies new or different cough, and denies hematemesis. His dark maroon stool is intermittent, painless, does not radiate anywhere, does not have exacerbating or relieving factors that he is aware of. -: Gradual, days(s) Consistency: intermittent Improves with: none Worsens with: none - Related Data Home Medications Medication Instructions Recorded Confirmed Last Taken minoxidiL [Minoxidil] 10 mg PO DAILY 05/24/15 01/28/19 07/31/18 Pravastatin [Pravachol (Nf)] 40 mg PO DAILY 08/01/18 01/28/19 07/31/18 Warfarin Sodium [Jantoven] 7.5 mg PO DAILY 08/01/18 01/28/19 07/31/18 Previous Rx's Medication Instructions Recorded Last Taken Type Albuterol *Only Ed* [Proventil 2.5 mg IH PRN PRN #90 nebu 05/25/15 07/31/18 Rx 0.5% NEBS] Aspirin 81 mg PO DAILY #30 tab.chew 06/15/18 07/31/18 Rx Furosemide [Lasix TAB] 40 mg PO QDAY #30 tablet 06/15/18 07/31/18 Rx HYDROcodone/HOMATROP 5-1.5 10 ml PO Q6H PRN 3 Days #1 udc 08/05/18 Unknown Rx [HYDROcodone-Homatropin 5-1.5 mg per 5 ML] ALBUTEROL NEB's [Proventil 0.083% 2.5 mg IH Q4HRT PRN #200 nebu 02/02/19 Unknown Rx NEBS] Aspirin [Aspirin BABY CHEW TAB] 81 mg PO QDAY #30 tab.chew 02/02/19 Unknown Rx Furosemide [Lasix TAB] 40 mg PO 0600,1800 #30 tablet 02/02/19 Unknown Rx ISOSORBIDE MONOnitrate [Imdur ER] 30 mg PO QDAY #30 tablet 02/02/19 Unknown Rx Metoprolol [Lopressor TAB] 12.5 mg PO BID #60 tablet 02/02/19 Unknown Rx Temazepam 30 mg PO HS #30 capsule 02/02/19 Unknown Rx amLODIPine 10 mg PO DAILY #30 tablet 02/02/19 Unknown Rx hydrALAZINE [Apresoline TAB] 50 mg PO Q8HR #90 tablet 02/02/19 Unknown Rx lisinopriL [Zestril TAB] 40 mg PO QDAY #30 tablet 02/02/19 Unknown Rx lisinopriL [Zestril TAB] 40 mg PO QDAY #30 tablet 02/02/19 Unknown Rx Allergies Allergy/AdvReac Type Severity Reaction Status Date / Time No Known Allergies Allergy Verified 10/12/13 04:55 ED Review of Systems ROS: Stated complaint: ABD PAINS Other details as noted in HPI Constitutional: denies: fever, malaise Eyes: denies: eye discharge, vision change Respiratory: cough, shortness of breath (Chronic cough, chronic shortness of breath) Cardiovascular: denies: chest pain, edema, syncope Gastrointestinal: hematochezia. denies: abdominal pain, nausea, vomiting, diarrhea, constipation, hematemesis, melena Genitourinary: denies: dysuria Musculoskeletal: denies: back pain Neurological: denies: weakness Hematological/Lymphatic: denies: easy bleeding ED Past Medical Hx - Past Medical History Previous Medical History?: Yes Hx Hypertension: Yes Hx CVA: Yes Hx Heart Attack/AMI: Yes (3 OR, last 2009) Hx Congestive Heart Failure: Yes Hx Diabetes: No Hx Deep Vein Thrombosis: Yes Hx Pulmonary Embolism: No Hx Renal Disease: Yes (acute renal failure) Hx Arthritis: Yes Hx Seizures: Yes () Hx Asthma: No Hx COPD: Yes Hx Tuberculosis: No Hx Dementia: No Hx HIV: No Additional medical history: Heart Stent x 3 - Surgical History Past Surgical History?: Yes Hx Coronary Stent: Yes (x3) Hx Open Heart Surgery: Yes (CABG 2 bypass) Hx Pacemaker: No Hx Internal Defibrillator: No Hx Cholecystectomy: No Hx Breast Surgery: No - Social History Smoking Status: Current Every Day Smoker - Medications Home Medications: Home Medications Medication Instructions Recorded Confirmed Last Taken Type minoxidiL [Minoxidil] 10 mg PO DAILY 05/24/15 01/28/19 07/31/18 History Albuterol *Only Ed* [Proventil 2.5 mg IH PRN PRN #90 nebu 05/25/15 01/28/19 07/31/18 Rx 0.5% NEBS] Aspirin 81 mg PO DAILY #30 tab.chew 06/15/18 01/28/19 07/31/18 Rx Furosemide [Lasix TAB] 40 mg PO QDAY #30 tablet 06/15/18 01/28/19 07/31/18 Rx Pravastatin [Pravachol (Nf)] 40 mg PO DAILY 08/01/18 01/28/19 07/31/18 History Warfarin Sodium [Jantoven] 7.5 mg PO DAILY 08/01/18 01/28/19 07/31/18 History HYDROcodone/HOMATROP 5-1.5 10 ml PO Q6H PRN 3 Days #1 udc 08/05/18 01/28/19 Unknown Rx [HYDROcodone-Homatropin 5-1.5 mg per 5 ML] ALBUTEROL NEB's [Proventil 0.083% 2.5 mg IH Q4HRT PRN #200 nebu 02/02/19 Unknown Rx NEBS] Aspirin [Aspirin BABY CHEW TAB] 81 mg PO QDAY #30 tab.chew 02/02/19 Unknown Rx Furosemide [Lasix TAB] 40 mg PO 0600,1800 #30 tablet 02/02/19 Unknown Rx ISOSORBIDE MONOnitrate [Imdur ER] 30 mg PO QDAY #30 tablet 02/02/19 Unknown Rx Metoprolol [Lopressor TAB] 12.5 mg PO BID #60 tablet 02/02/19 Unknown Rx Temazepam 30 mg PO HS #30 capsule 02/02/19 Unknown Rx amLODIPine 10 mg PO DAILY #30 tablet 02/02/19 Unknown Rx hydrALAZINE [Apresoline TAB] 50 mg PO Q8HR #90 tablet 02/02/19 Unknown Rx lisinopriL [Zestril TAB] 40 mg PO QDAY #30 tablet 02/02/19 Unknown Rx lisinopriL [Zestril TAB] 40 mg PO QDAY #30 tablet 02/02/19 Unknown Rx ED Physical Exam - General Limitations: No Limitations General appearance: alert, in no apparent distress - Head Head exam: Present: atraumatic, normocephalic - Eye Eye exam: Present: normal appearance, EOMI. Absent: nystagmus - ENT ENT exam: Present: normal exam, normal orophraynx, mucous membranes moist, normal external ear exam - Neck Neck exam: Present: normal inspection, full ROM. Absent: tenderness, meningismus - Respiratory Respiratory exam: Present: normal lung sounds bilaterally. Absent: respiratory distress, wheezes, rales, rhonchi, stridor - Cardiovascular Cardiovascular Exam: Present: normal rhythm, bradycardia, irregular rhythm, normal heart sounds. Absent: tachycardia, systolic murmur, diastolic murmur, rubs, gallop - GI/Abdominal GI/Abdominal exam: Present: soft, normal bowel sounds. Absent: distended, tenderness, guarding, rebound, rigid, pulsatile mass - Rectal Rectal exam: Present: normal inspection, normal rectal tone, heme (+) stool, bloody stool, other (Chaperoned by nurse Ian Varma) - Extremities Exam Extremities exam: Present: normal inspection, full ROM, other (2+ pulses noted in the bilateral upper and lower extremities. There is no palpable cord. negative Homans sign. Muscular compartments are soft. The pelvis is stable.). Absent: calf tenderness - Back Exam Back exam: Present: normal inspection, full ROM. Absent: tenderness, CVA tenderness (R), CVA tenderness (L), paraspinal tenderness, vertebral tenderness - Neurological Exam Neurological exam: Present: alert, oriented X3, normal gait, other (No facial droop. Tongue midline. Extraocular movements intact bilaterally. Facial sensation intact to light touch in V1, V2, V3 distribution bilaterally. 5 and a 5 strength in 4 extremities. Sensation intact to light touch in 4 extremities.). Absent: motor sensory deficit - Psychiatric Psychiatric exam: Present: normal affect, normal mood - Skin Skin exam: Present: warm, dry, intact, normal color. Absent: rash ED Course Vital Signs 06/05/20 06/05/20 06/06/20 15:25 23:40 00:19 Temperature 97.6 F 97.7 F Pulse Rate 59 L 76 Respiratory 18 18 Rate Blood Pressure 172/86 Blood Pressure 178/100 154/85 [Right] O2 Sat by Pulse 99 100 Oximetry ED Medical Decision Making - Lab Data Result diagrams: 06/05/20 15:39 06/05/20 15:39 Vital Signs 06/05/20 06/05/20 06/06/20 15:25 23:40 00:19 Temperature 97.6 F 97.7 F Pulse Rate 59 L 76 Respiratory 18 18 Rate Blood Pressure 172/86 Blood Pressure 178/100 154/85 [Right] O2 Sat by Pulse 99 100 Oximetry Lab Results 06/05/20 06/05/20 06/05/20 Range/Units 15:39 15:39 15:39 WBC 5.7 (4.5-11.0) K/mm3 RBC 3.94 (3.65-5.03) M/mm3 Hgb 11.2 L (11.8-15.2) gm/dl Hct 33.0 L (35.5-45.6) % MCV 84 (84-94) fl MCH 29 (28-32) pg MCHC 34 (32-34) % RDW 20.9 H (13.2-15.2) % Plt Count 234 (140-440) K/mm3 Lymph % (Auto) 19.8 (13.4-35.0) % [place] % (Auto) 13.2 H (0.0-7.3) % Eos % (Auto) 1.0 (0.0-4.3) % Baso % (Auto) 0.7 (0.0-1.8) % Lymph # (Auto) 1.1 L (1.2-5.4) K/mm3 [place] # (Auto) 0.7 (0.0-0.8) K/mm3 Eos # (Auto) 0.1 (0.0-0.4) K/mm3 Baso # (Auto) 0.0 (0.0-0.1) K/mm3 Seg Neutrophils % 65.3 (40.0-70.0) % Seg Neutrophils # 3.7 (1.8-7.7) K/mm3 PT 25.8 H (12.2-14.9) Sec. INR 2.30 H (0.87-1.13) APTT 33.8 (24.2-36.6) Sec. Sodium 144 (137-145) mmol/L Potassium 3.1 L (3.6-5.0) mmol/L Chloride 102.9 (98-107) mmol/L Carbon Dioxide 26 (22-30) mmol/L Anion Gap 18 mmol/L BUN 15 (9-20) mg/dL Creatinine 1.2 (0.8-1.3) mg/dL Estimated GFR > 60 ml/min BUN/Creatinine Ratio 13 % Glucose 169 H (75-100) mg/dL Calcium 9.2 (8.4-10.2) mg/dL Total Bilirubin 0.30 (0.1-1.2) mg/dL AST 25 (5-40) units/L ALT 16 (7-56) units/L Alkaline Phosphatase 103 (35-129) units/L Total Protein 7.6 (6.3-8.2) g/dL Albumin 3.7 L (3.9-5) g/dL Albumin/Globulin Ratio 0.9 % - EKG Data -: EKG Interpreted by Ky - EKG Data 06/06/20 01:15 A. fib, 53 bpm, normal axis, QTC 403 ms, premature ventricular contractions, abnormal EKGthe EKGs had a STEMI. - Medical Decision Making Differential diagnosis, including but not limited to: Diverticulosis, angiodys plasia, lower GI bleed, therapeutic INR Assessment and plan: 65-year-old gentleman, with known history of pandiverticulosis, INR, therapeutic INR, mild hypokalemia, dark red blood on rectal examination, hemodynamically stable, with probable lower GI bleed. Place patient on monitor, establish IV access, administer oral vitamin K, and administer gentle fluids. Hold antihypertensives and Coumadin/blood thinning medications at this time. Admission is recommended, and the patient is amenable to this plan of care. Contacted gastroenterology on-call, Dr. Rogers, Discussed the patient's history, physical, pertinent exam and laboratory studies, their group will evaluate the patient in the morning make further recommendations, we both agree that given the history and physical, patient does not require complete anticoagulation reversal with fresh frozen plasma, or prothrombin complex concentrate at this time. We are both in agreement that vitamin K would be adequate at this time. Contacted hospital physician, Dr. Don, Who accepts the patient to the medical service. Critical care attestation.: If time is entered above; I have spent that time in minutes in the direct care of this critically ill patient, excluding procedure time. ED Disposition Clinical Impression: Anticoagulated on Coumadin, LGI bleed, Hypokalemia Disposition: OP ADMIT IP TO THIS HOSP Is pt being admited?: Yes Does the pt Need Aspirin: No Condition: Good
[2020-06-05] MEDS ORDERED: PHYTONADIONE 5 MG/0.5 ML *ORAL LIQUID PO ONE (23:59)
[2020-06-06] MEDS ORDERED: PHYTONADIONE 10 MG/1 ML (ADULT ONLY)*INJECTION ONE (00:20)
[2020-06-06 00:24] LABS: Bilirubin,Urine NEG (Negative); Blood,Urine NEG (Negative); Color,Urine Amber (Yellow); Hyaline Casts,Urine 4 /LPF; Mucus,Urine FEW /HPF
[2020-06-06] MEDS ORDERED: SODIUM CHLORIDE 0.9% 250ML 250 ML IV ONE (00:24)
[2020-06-06] MEDS ORDERED: PHYTONADIONE 5 MG/0.5 ML *ORAL LIQUID PO ONE (01:00)
[2020-06-06] MEDS ORDERED: ACETAMINOPHEN 325 MG TAB PO PRN (01:54)
[2020-06-06] MEDS ORDERED: SODIUM CHLORIDE 0.9% 1000 ML 1,000 ML IV SCH (02:00)
[2020-06-06] MEDS: PANTOPRAZOLE 40 MG INJ IV SCH ×3 (02:58→21:12)
[2020-06-06 05:34] LABS: Hematocrit 30.1 % (35.5-45.6); Hemoglobin 10.2 gm/dl (11.8-15.2)
--- NOTE | 2020-06-06 07:49 | History and Physical Report ---
History of Present Illness Date of examination: 06/05/20 Date of admission: 06/05/20 00:27 Chief complaint: Chief complaint is passage of dark red-maroon stool History of present illness: History of presenting illness, patient is a 65-year-old male who said he has b een passing dark red-maroon stool for the last 2 to 3 days, there was no history of abdominal pain, no history of nausea vomiting or hematemesis. Patient denied history of ingestion of alcohol or nonsteroidal anti-inflammatory agents and also denied history of shortness of breath fever chills chest pain or cough, however patient admitted to being on Coumadin for atrial fibrillation. Past History Past Medical History: atrial fib, seizures, other (DIVERTICULOSIS) Medications and Allergies Allergies Allergy/AdvReac Type Severity Reaction Status Date / Time No Known Allergies Allergy Verified 10/12/13 04:55 Home Medications Medication Instructions Recorded Confirmed Last Taken Type minoxidiL [Minoxidil] 10 mg PO DAILY 05/24/15 06/06/20 07/31/18 History Albuterol *Only Ed* [Proventil 2.5 mg IH PRN PRN #90 nebu 05/25/15 06/06/20 07/31/18 Rx 0.5% NEBS] Aspirin 81 mg PO DAILY #30 tab.chew 06/15/18 06/06/20 07/31/18 Rx Furosemide [Lasix TAB] 40 mg PO QDAY #30 tablet 06/15/18 06/06/20 07/31/18 Rx Pravastatin [Pravachol (Nf)] 40 mg PO DAILY 08/01/18 06/06/20 07/31/18 History Warfarin Sodium [Jantoven] 7.5 mg PO DAILY 08/01/18 06/06/20 07/31/18 History HYDROcodone/HOMATROP 5-1.5 10 ml PO Q6H PRN 3 Days #1 udc 08/05/18 06/06/20 Unknown Rx [HYDROcodone-Homatropin 5-1.5 mg per 5 ML] ALBUTEROL NEB's [Proventil 0.083% 2.5 mg IH Q4HRT PRN #200 nebu 02/02/19 06/06/20 Unknown Rx NEBS] Aspirin [Aspirin BABY CHEW TAB] 81 mg PO QDAY #30 tab.chew 02/02/19 06/06/20 Unknown Rx Furosemide [Lasix TAB] 40 mg PO 0600,1800 #30 tablet 02/02/19 06/06/20 Unknown Rx ISOSORBIDE MONOnitrate [Imdur ER] 30 mg PO QDAY #30 tablet 02/02/19 06/06/20 Unknown Rx Metoprolol [Lopressor TAB] 12.5 mg PO BID #60 tablet 02/02/19 06/06/20 Unknown Rx Temazepam 30 mg PO HS #30 capsule 02/02/19 06/06/20 Unknown Rx amLODIPine 10 mg PO DAILY #30 tablet 02/02/19 06/06/20 Unknown Rx hydrALAZINE [Apresoline TAB] 50 mg PO Q8HR #90 tablet 02/02/19 06/06/20 Unknown Rx lisinopriL [Zestril TAB] 40 mg PO QDAY #30 tablet 02/02/19 06/06/20 Unknown Rx lisinopriL [Zestril TAB] 40 mg PO QDAY #30 tablet 02/02/19 06/06/20 Unknown Rx Active Meds: Active Medications Acetaminophen (Tylenol) 650 mg PO Q4H PRN PRN Reason: Fever >101 Sodium Chloride (Nacl 0.9% 1000 Ml) 1,000 mls @ 75 mls/hr IV DIRECT JOYCE Pantoprazole Sodium (Protonix) 40 mg IV BID [facility] Last Admin: 06/06/20 02:58 Dose: Not Given Documented by: Review of Systems Constitutional: no weight loss, no weight gain, no fever, no chills, no sweats, no night sweats, no anorexia, no fatigue, no weakness, no malaise, no lethargy Eyes: bilateral: other (NO BILATERAL EYE SYMPTOM) Ears, nose, mouth and throat: no ear pain, no ear discharge, no tinnitis, no decreased hearing, no nose pain, no nasal congestion, no nasal discharge, no sinus pressure, no bleeding gums, no dental pain, no mouth pain, no dysphagia, no hoarseness, no sore throat, no swelling in mouth, no swelling in throat, no headache, no vertigo Cardiovascular: no chest pain, no orthopnea, no palpitations, no rapid/irregular heart beat, no edema, no syncope, no lightheadedness, no shortness of breath, no claudication, no phlebitis, no high blood pressure, no leg edema Respiratory: no cough, no cough with sputum, no excessive sputum, no hemoptysis, no shortness of breath, no dyspnea on exertion, no congestion, no wheezing, no pleurisy, no pain, no pain on inspiration, no snoring, no sleep apnea Gastrointestinal: melena, no abdominal pain, no nausea, no vomiting, no diarrhea, no constipation, no change in bowel habits, no hematemesis, no coffee ground emesis, no BRBPR, no hematochezia, no loss of appetite, no early satiety, no heartburn, no indigestion, no belching, no excessive gas, no jaundice, no dyspepsia/bloating, no early satiety, no lactose intolerance Genitourinary Male: no dysuria, no hematuria, no flank pain, no discharge, no urinary frequency, no urinary hesitancy, no nocturia, no incontinence, no erectile dysfunction Rectal: no pain, no bleeding, no itching Musculoskeletal: no neck stiffness, no neck pain, no shooting arm pain, no arm numbness/tingling, no low back pain, no shooting leg pain, no leg numbness/ti ngling, no redness of joints, no hot joints, no morning stiffness, no muscle weakness, no muscle cramps, no myalgias, no atrophy Integumentary: no rash, no pruritis, no redness, no sores, no wounds, no jaundice, no boils, no blisters, no bullae, no lesions, no depigmentation Neurological: weakness, no paralysis, no parathesias, no numbness, no seizures, no syncope, no tremors, no ataxia, no vertigo, no headaches, no convulsions, no aphasia, no change in speech, no change in mentation, no confusion, no memory loss, no double vision Psychiatric: no anxiety, no insomnia, no hypersomnia, no change in appetite, no change in libido, no hopelessness, no anhedonia, no anxiety attacks Endocrine: no cold intolerance, no heat intolerance, no polyphagia, no excessive thirst, no polydipsia, no polyuria, no nocturia, no excessive sweating, no flushing, no palpatations, no high blood sugars Hematologic/Lymphatic: no lymphadenopathy Exam - Constitutional Vitals: Temp Pulse Resp BP Pulse Ox 98.0 F 61 18 152/82 95 06/06/20 04:20 06/06/20 04:20 06/06/20 04:20 06/06/20 04:20 06/06/20 04:20 General appearance: Present: no acute distress - EENT Eyes: Present: PERRL, EOM intact ENT: hearing intact, clear oral mucosa, dentition normal - Neck Neck: Present: supple, normal ROM - Respiratory Respiratory effort: normal - Cardiovascular Rhythm: regular Heart Sounds: Present: S1 & S2. Absent: gallop, systolic murmur, diastolic murmur - Extremities Extremities: no ischemia, No edema Peripheral Pulses: within normal limits - Abdominal General gastrointestinal: Present: soft, non-tender, non-distended. Absent: tender, distended, rigid, hepatomegaly, splenomegaly, mass Male genitourinary: Present: deferred - Integumentary Integumentary: Present: clear, warm, dry. Absent: jaundice, rash, clammy, normal turgor, decreased turgor - Musculoskeletal Musculoskeletal: strength equal bilaterally - Psychiatric Psychiatric: appropriate mood/affect HEART Score - HEART Score Age: 45-65 Risk factors: 1-2 risk factors Troponin: < normal limit - Critical Actions Critical Actions: 0-3 pts:0.9-1.7%risk of adverse cardiac event.Candidate for discharge Results - Labs CBC & Chem 7: 06/06/20 05:18 06/05/20 15:39 Labs: Laboratory Last Values WBC 5.7 K/mm3 (4.5-11.0) 06/05/20 15:39 RBC 3.94 M/mm3 (3.65-5.03) 06/05/20 15:39 Hgb 10.2 gm/dl (11.8-15.2) L 06/06/20 05:18 Hct 30.1 % (35.5-45.6) L 06/06/20 05:18 MCV 84 fl (84-94) 06/05/20 15:39 MCH 29 pg (28-32) 06/05/20 15:39 MCHC 34 % (32-34) 06/05/20 15:39 RDW 20.9 % (13.2-15.2) H 06/05/20 15:39 Plt Count 234 K/mm3 (140-440) 06/05/20 15:39 Lymph % (Auto) 19.8 % (13.4-35.0) 06/05/20 15:39 [place] % (Auto) 13.2 % (0.0-7.3) H 06/05/20 15:39 Eos % (Auto) 1.0 % (0.0-4.3) 06/05/20 15:39 Baso % (Auto) 0.7 % (0.0-1.8) 06/05/20 15:39 Lymph # (Auto) 1.1 K/mm3 (1.2-5.4) L 06/05/20 15:39 [place] # (Auto) 0.7 K/mm3 (0.0-0.8) 06/05/20 15:39 Eos # (Auto) 0.1 K/mm3 (0.0-0.4) 06/05/20 15:39 Baso # (Auto) 0.0 K/mm3 (0.0-0.1) 06/05/20 15:39 Seg Neutrophils % 65.3 % (40.0-70.0) 06/05/20 15:39 Seg Neutrophils # 3.7 K/mm3 (1.8-7.7) 06/05/20 15:39 PT 25.8 Sec. (12.2-14.9) H 06/05/20 15:39 INR 2.30 (0.87-1.13) H 06/05/20 15:39 APTT 33.8 Sec. (24.2-36.6) 06/05/20 15:39 Sodium 144 mmol/L (137-145) 06/05/20 15:39 Potassium 3.1 mmol/L (3.6-5.0) L 06/05/20 15:39 Chloride 102.9 mmol/L (98-107) 06/05/20 15:39 Carbon Dioxide 26 mmol/L (22-30) 06/05/20 15:39 Anion Gap 18 mmol/L 06/05/20 15:39 BUN 15 mg/dL (9-20) 06/05/20 15:39 Creatinine 1.2 mg/dL (0.8-1.3) 06/05/20 15:39 Estimated GFR > 60 ml/min 06/05/20 15:39 BUN/Creatinine Ratio 13 % 06/05/20 15:39 Glucose 169 mg/dL (75-100) H 06/05/20 15:39 Calcium 9.2 mg/dL (8.4-10.2) 06/05/20 15:39 Total Bilirubin 0.30 mg/dL (0.1-1.2) 06/05/20 15:39 AST 25 units/L (5-40) 06/05/20 15:39 ALT 16 units/L (7-56) 06/05/20 15:39 Alkaline Phosphatase 103 units/L (35-129) 06/05/20 15:39 Total Protein 7.6 g/dL (6.3-8.2) 06/05/20 15:39 Albumin 3.7 g/dL (3.9-5) L 06/05/20 15:39 Albumin/Globulin Ratio 0.9 % 06/05/20 15:39 Urine Color Jackie (Yellow) 06/06/20 00:09 Urine Turbidity Clear (Clear) 06/06/20 00:09 Urine pH 5.0 (5.0-7.0) 06/06/20 00:09 Ur Specific [place] 1.030 (1.003-1.030) 06/06/20 00:09 Urine Protein 100 mg/dl mg/dL (Negative) 06/06/20 00:09 Urine Glucose (UA) Neg mg/dL (Negative) 06/06/20 00:09 Urine Ketones Tr mg/dL (Negative) 06/06/20 00:09 Urine Blood Neg (Negative) 06/06/20 00:09 Urine Nitrite Neg (Negative) 06/06/20 00:09 Urine Bilirubin Neg (Negative) 06/06/20 00:09 Urine Urobilinogen 4.0 mg/dL (<2.0) 06/06/20 00:09 Ur Leukocyte Esterase Neg (Negative) 06/06/20 00:09 Urine WBC (Auto) 2.0 /HPF (0.0-6.0) 06/06/20 00:09 Urine RBC (Auto) 2.0 /HPF (0.0-6.0) 06/06/20 00:09 U Epithel Cells (Auto) < 1.0 /HPF (0-13.0) 06/06/20 00:09 Hyaline Casts 4 /LPF 06/06/20 00:09 Urine Mucus Few /HPF 06/06/20 00:09 [place]/IV: IV Catheter Type [Right Upper INT / Saline Lock arm] Assessment and Plan - Patient Problems (1) Hypokalemia Current Visit: Yes Status: Acute Plan to address problem: POTASSIUM REPLACEMENT (2) LGI bleed Current Visit: Yes Status: Acute Plan to address problem: 1. GI CONSULT 2. I.V PROTONIX 3. I.V NORMAL SALINE FLUID 4. NPO
[2020-06-06] MEDS: hydrALAZINE 25 MG TAB PO SCH ×3 (08:47→21:13)
--- NOTE | 2020-06-06 09:25 | Gastroenterology Consultation ---
History of Present Illness - Reason for Consult Consult date: 06/06/20 Rectal Bleeding Requesting physician: MARIJA LION - History of Present Illness Is a pleasant 65-year-old gentleman presenting with rectal bleeding Patient reports his symptoms are similar to what happened 6 years ago when he had a significant GI bleed that was felt to likely be diverticular in nature Patient reports his bleeding started Friday he had 6-8 bowel movements that were maroon in color and very large volume He reports on Friday having only 2 or 3 bowel movements that were maroon in color but much smaller volume he reports his last bowel movement was yesterday and it was a small amount of maroon stool Patient reports no bowel movement since yesterday Patient denies abdominal pain nausea or vomiting Of note patient is on Coumadin but was given vitamin K to reverse here in the hospital He reports his last colonoscopy was 6 years ago the last time he had a GI bleed He is anxious to return home as he has a lot of schoolwork to do Denies abdominal pain nausea vomiting fatigue weakness dyspnea on exertion Obtained/updated/reviewed patient's current medications Past History Past Medical History: atrial fib, seizures, other (DIVERTICULOSIS) Past Surgical History: Other (Colonoscopy 2013) Social history: other (Denies tobacco use) Family history: no significant family history (Denies CRC) Medications and Allergies Allergies Allergy/AdvReac Type Severity Reaction Status Date / Time No Known Allergies Allergy Verified 10/12/13 04:55 Home Medications Medication Instructions Recorded Confirmed Last Taken Type minoxidiL [Minoxidil] 10 mg PO DAILY 05/24/15 06/06/20 07/31/18 History Albuterol *Only Ed* [Proventil 2.5 mg IH PRN PRN #90 nebu 05/25/15 06/06/20 07/31/18 Rx 0.5% NEBS] Aspirin 81 mg PO DAILY #30 tab.chew 06/15/18 06/06/20 07/31/18 Rx Furosemide [Lasix TAB] 40 mg PO QDAY #30 tablet 06/15/18 06/06/20 07/31/18 Rx Pravastatin [Pravachol (Nf)] 40 mg PO DAILY 08/01/18 06/06/20 07/31/18 History Warfarin Sodium [Jantoven] 7.5 mg PO DAILY 08/01/18 06/06/20 07/31/18 History HYDROcodone/HOMATROP 5-1.5 10 ml PO Q6H PRN 3 Days #1 udc 08/05/18 06/06/20 Unknown Rx [HYDROcodone-Homatropin 5-1.5 mg per 5 ML] ALBUTEROL NEB's [Proventil 0.083% 2.5 mg IH Q4HRT PRN #200 nebu 02/02/19 06/06/20 Unknown Rx NEBS] Aspirin [Aspirin BABY CHEW TAB] 81 mg PO QDAY #30 tab.chew 02/02/19 06/06/20 Unknown Rx Furosemide [Lasix TAB] 40 mg PO 0600,1800 #30 tablet 02/02/19 06/06/20 Unknown Rx ISOSORBIDE MONOnitrate [Imdur ER] 30 mg PO QDAY #30 tablet 02/02/19 06/06/20 Unknown Rx Metoprolol [Lopressor TAB] 12.5 mg PO BID #60 tablet 02/02/19 06/06/20 Unknown Rx Temazepam 30 mg PO HS #30 capsule 02/02/19 06/06/20 Unknown Rx amLODIPine 10 mg PO DAILY #30 tablet 02/02/19 06/06/20 Unknown Rx hydrALAZINE [Apresoline TAB] 50 mg PO Q8HR #90 tablet 02/02/19 06/06/20 Unknown Rx lisinopriL [Zestril TAB] 40 mg PO QDAY #30 tablet 02/02/19 06/06/20 Unknown Rx lisinopriL [Zestril TAB] 40 mg PO QDAY #30 tablet 02/02/19 06/06/20 Unknown Rx Active Meds: Active Medications Acetaminophen (Tylenol) 650 mg PO Q4H PRN PRN Reason: Fever >101 Amlodipine Besylate (Amlodipine) 10 mg PO DAILY JOYCE Hydralazine HCl (Apresoline) 50 mg PO Q8HR [facility] Last Admin: 06/06/20 08:47 Dose: 50 mg Documented by: Sodium Chloride (Nacl 0.9% 1000 Ml) 1,000 mls @ 75 mls/hr IV DIRECT JOYCE Metoprolol Tartrate (Metoprolol) 12.5 mg PO BID JOYCE Pantoprazole Sodium (Protonix) 40 mg IV BID [facility] Last Admin: 06/06/20 02:58 Dose: Not Given Documented by: Polyethylene Glycol/Electrolytes (Golytely) 4,000 ml PO ONCE ONE Stop: 06/06/20 18:01 Coumadin Review of Systems - Review of Systems All systems: negative (10 Systems reviewed and negative except as mentioned above in the history of present illness) Exam - Constitutional Vital Signs: Temp Pulse Resp BP Pulse Ox 98.3 F 67 20 157/83 93 06/06/20 08:16 06/06/20 08:47 06/06/20 08:16 06/06/20 08:47 06/06/20 08:16 General appearance: no acute distress - EENT Eyes: EOM intact ENT: hearing intact - Neck Neck: supple - Respiratory Respiratory effort: normal - Cardiovascular Rhythm: other (No murmur appreciated) - Gastrointestinal General gastrointestinal: Present: soft, non-tender - Integumentary Integumentary: Present: dry - Musculoskeletal Musculoskeletal: normal - Neurologic Neurological: alert and oriented x3 - Psychiatric Psychiatric: appropriate mood/affect - Labs CBC & Chem 7: 06/06/20 05:18 06/05/20 15:39 Lab Results: Laboratory Results - last 24 hr 06/05/20 06/05/20 06/05/20 15:39 15:39 15:39 WBC 5.7 RBC 3.94 Hgb 11.2 L Hct 33.0 L MCV 84 MCH 29 MCHC 34 RDW 20.9 H Plt Count 234 Lymph % (Auto) 19.8 [place] % (Auto) 13.2 H Eos % (Auto) 1.0 Baso % (Auto) 0.7 Lymph # (Auto) 1.1 L [place] # (Auto) 0.7 Eos # (Auto) 0.1 Baso # (Auto) 0.0 Seg Neutrophils % 65.3 Seg Neutrophils # 3.7 PT 25.8 H INR 2.30 H APTT 33.8 Sodium 144 Potassium 3.1 L Chloride 102.9 Carbon Dioxide 26 Anion Gap 18 BUN 15 Creatinine 1.2 Estimated GFR > 60 BUN/Creatinine Ratio 13 Glucose 169 H Calcium 9.2 Total Bilirubin 0.30 AST 25 ALT 16 Alkaline Phosphatase 103 Total Protein 7.6 Albumin 3.7 L Albumin/Globulin Ratio 0.9 Urine Color Urine Turbidity Urine pH Ur Specific [place] Urine Protein Urine Glucose (UA) Urine Ketones Urine Blood Urine Nitrite Urine Bilirubin Urine Urobilinogen Ur Leukocyte Esterase Urine WBC (Auto) Urine RBC (Auto) U Epithel Cells (Auto) Hyaline Casts Urine Mucus 06/06/20 06/06/20 00:09 05:18 WBC RBC Hgb 10.2 L Hct 30.1 L MCV MCH MCHC RDW Plt Count Lymph % (Auto) [place] % (Auto) Eos % (Auto) Baso % (Auto) Lymph # (Auto) [place] # (Auto) Eos # (Auto) Baso # (Auto) Seg Neutrophils % Seg Neutrophils # PT INR APTT Sodium Potassium Chloride Carbon Dioxide Anion Gap BUN Creatinine Estimated GFR BUN/Creatinine Ratio Glucose Calcium Total Bilirubin AST ALT Alkaline Phosphatase Total Protein Albumin Albumin/Globulin Ratio Urine Color Jackie Urine Turbidity Clear Urine pH 5.0 Ur Specific [place] 1.030 Urine Protein 100 mg/dl Urine Glucose (UA) Neg Urine Ketones Tr Urine Blood Neg Urine Nitrite Neg Urine Bilirubin Neg Urine Urobilinogen 4.0 Ur Leukocyte Esterase Neg Urine WBC (Auto) 2.0 Urine RBC (Auto) 2.0 U Epithel Cells (Auto) < 1.0 Hyaline Casts 4 Urine Mucus Few Assessment and Plan Findings most consistent with acute diverticular bleed though other etiologies also on differential diagnosis including AVM, colon mass, etc. Given patient's need for continuing anticoagulation recommend diagnostic colonoscopy. Clear liquid diet today prep tonight for colonoscopy tomorrow and would anticipate INR to be trending down by tomorrow so that should not in terfere with ability to perform diagnostic colonoscopy - Patient Problems (1) LGI bleed Current Visit: Yes Status: Acute (2) Anticoagulated on Coumadin Current Visit: Yes Status: Chronic
[2020-06-06] MEDS ORDERED: METOPROLOL TARTRATE 25 MG TAB PO SCH (10:00)
[2020-06-06] MEDS: amLODIPine 10 MG TAB PO SCH (10:02)
[2020-06-06] MEDS: D5W/0.9% NACL 1,000 ML IV SCH (14:45)
--- NOTE | 2020-06-06 15:06 | Event Note ---
Date: 06/06/20 patient seen and examined patient is a 65-year-old male who said he has been passing dark red-maroon stool for the last 2 to 3 days h/H stable, no active bleeding today planned for colonscopy tomorrow Cont current mx and supportive care
[2020-06-06] MEDS ORDERED: POLYETHYLENE GLYCOL/ELECT SOLN 4000 ML PO ONE (18:00)
[2020-06-07] MEDS: D5W/0.9% NACL 1,000 ML IV SCH (01:30)
[2020-06-07 05:03] LABS: Basophils % (Auto) 0.7 % (0.0-1.8); Eosinophils # (Auto) 0.2 K/mm3 (0.0-0.4); Eosinophils % (Auto) 3.7 % (0.0-4.3); Hematocrit 31.9 % (35.5-45.6); Hemoglobin 10.6 gm/dl (11.8-15.2); Lymphocytes # (Auto) 1.2 K/mm3 (1.2-5.4); Lymphocytes % (Auto) 23.5 % (13.4-35.0); Mean Corpuscular HGB Conc 33 % (32-34); Mean Corpuscular Volume 86 fl (84-94); Monocytes # (Auto) 0.7 K/mm3 (0.0-0.8); Monocytes % (Auto) 14.5 % (0.0-7.3); Platelet Count 216 K/mm3 (140-440); Red Blood Count 3.73 M/mm3 (3.65-5.03)
[2020-06-07 05:08] LABS: Red Cell Distribution Width 20.9 % (13.2-15.2)
[2020-06-07 05:13] LABS: BUN/Creatinine Ratio 10; Blood Urea Nitrogen 10 mg/dL (9-20); Calcium 8.7 mg/dL (8.4-10.2); Hemolysis Index 17
[2020-06-07] MEDS: hydrALAZINE 25 MG TAB PO SCH ×2 (05:25→13:00)
[2020-06-07] MEDS: PANTOPRAZOLE 40 MG INJ IV SCH (09:20)
[2020-06-07] MEDS: amLODIPine 10 MG TAB PO SCH (09:21)
[2020-06-07] MEDS ORDERED: SODIUM CHLORIDE 0.9% 1000 ML 1,000 ML IV SCH (11:00)
--- NOTE | 2020-06-07 13:52 | Discharge Summary ---
Providers - Providers Date of Admission: 06/06/20 00:27 Date of discharge: 06/07/20 Attending physician: ROCIO CHAVIRA 06/05/20 23:33 Consult to Physician [CONS] Urgent Comment: Dr. Jeter spoke with Dr. Ventura @ [phone] Consulting Provider: ANA QUAN Physician Instructions: Reason For Exam: gi bleed Primary care physician: HUMAN RESOURCE ADVISOR Hospitalization Condition: Good Hospital course: Patient is a 65-year-old male who said he has been passing dark red-maroon stool for the last 2 to 3 days before admission. Patient noted to be anemic with stable H&H, did not have any active bleeding. GI was consulted patient underwent colonoscopy which showed significant diverticulosis scattered throughout the entire colon. Patient was tolerating diet. GI recommended outpatient follow-up. Patient was discharged home in stable condition. Colonoscopy FINDINGS: Significant diverticulosis scattered throughout the entire colon Small amount of scattered stool throughout the colon slightly limiting views Very small internal hemorrhoids Remainder of exam is unremarkable GI RECOMMENDATIONS: Findings consistent with diverticular bleed, patient may be discharged with outpatient follow Discharge diagnosis: Acute GI bleed, due to diverticulosis Blood loss anemia, H&H stable Hypokalemia, repleted Hypertension, moderately controlled need further outpatient follow-up Disposition: DC-01 TO HOME OR SELFCARE Time spent for discharge: 34 minutes Core Measure Documentation - Palliative Care Palliative Care/ Comfort Measures: Not Applicable - Core Measures Any of the following diagnoses?: none Exam - Physical Exam Narrative exam: GENERAL: well-developed and well-nourished elderly male lying on bed appeared to be in no discomfort. HEENT: Normocephalic. Atraumatic. No conjunctival congestion or icterus. Patient has moist mucous membranes. NECK: Supple. Trachea midline. CHEST/LUNGS: Clear to auscultated bilaterally, breathing nonlabored. No wheezes crackles or rhonchi. HEART/CARDIOVASCULAR: Regular in rate and rhythm. S1 and S2 positive. ABDOMEN: Abdomen is soft, nontender. Patient has normal bowel sounds. SKIN: There is no rash. Warm and dry. NEURO: No focal motor deficit. Follows command. MUSCULOSKELETAL: No joint effusion or tenderness. EXTRIMITY: No edema, no cyanosis or clubbing. PSYCH: Cooperative. - Constitutional Vitals: Temp Pulse Resp BP Pulse Ox 98.1 F 58 L 22 189/111 98 06/07/20 12:57 06/07/20 13:00 06/07/20 12:57 06/07/20 12:57 06/07/20 12:57 Plan Activity: advance as tolerated Weight Bearing Status: Weight Bear as Tolerated Diet: advance as tolerated Additional Instructions: Follow-up with GI in 1 week. Repeat CBC in 1 week Follow up with: PRIMARY CARE, [Primary Care Provider] - 3-5 Days ANA QUAN MD [Staff Physician] - 7 Days Forms: Accompanied Note, Work/School Release Form Prescriptions: lisinopriL [Zestril TAB] 40 mg PO QDAY #30 tablet
[2020-06-07] MEDS ORDERED: SODIUM CHLORIDE 0.9% 1000 ML 1,000 ML ONE (14:15)
--- NOTE | 2020-06-07 14:58 | Anesthesia Day of Surgery ---
Anesthesia Day of Surgery - Day of Surgery Patient Examined: Yes Patient H&P Reviewed: Yes Patient is NPO: Yes
--- NOTE | 2020-06-07 15:00 | Anesthesia Consultation ---
Anesthesia Consult and Med Hx Date of service: 06/07/20 - Airway Anesthetic Teeth Evaluation: Good ROM Head & Neck: Adequate Mental/Hyoid Distance: Adequate Mallampati Class: Class II Intubation Access Assessment: Probably Good - Pre-Operative Health Status ASA Pre-Surgery Classification: ASA3 Proposed Anesthetic Plan: MAC - Pulmonary Hx Smoking: Yes Hx Asthma: No COPD: Yes Hx Pneumonia: No Hx Sleep Apnea: No - Cardiovascular System Hx Hypertension: Yes Hx Coronary Artery Disease: Yes (CHF) Hx Heart Attack/AMI: Yes (3 [place], last 2009) Hx Angina: Yes Hx Percutaneous Transluminal Coronary Angioplasty (PTCA): Yes Hx Cardia Arrhythmia: Yes (AFIB) Hx Pacemaker: No Hx Internal Defibrillator: No Hx Valvular Heart Disease: No Hx Heart Murmur: No Hx Peripheral Vascular Disease: Yes - Central Nervous System Hx Seizures: Yes () CVA: Yes Hx Psychiatric Problems: Yes - Endocrine Hx Renal Disease: Yes (acute renal failure in the past) Hx End Stage Renal Disease: No - Hematic Hx Anemia: Yes - Other Systems Hx Alcohol Use: Yes (daily) Hx Cancer: No - Additional Comments Anesthesia Medical History Comments: His past medical history includes permanent A. fib, on Coumadin therapy, gracia diverticulosis, as per colonoscopy in 2014, also has a history of COPD, CHF, peripheral artery disease.
[2020-06-07] MEDS ORDERED: LIDOCAINE MPF (2%) 20 MG/1 ML VIAL 5 ML ONE (15:33)
[2020-06-07] MEDS ORDERED: ONDANSETRON 4 MG/2 ML INJ ONE (15:33)
[2020-06-07] MEDS ORDERED: fentaNYL 100 MCG/2 ML INJ ONE (15:34)
[2020-06-07] MEDS ORDERED: propofoL 200 MG/20 ML VIAL IV ONE (15:34)
--- NOTE | 2020-06-07 16:17 | Post Anesthesia Evaluation ---
- Post Anesthesia Evaluation Patient Participated: Yes Airway Patent: Yes Stable Respiratory Function: Yes Nausea/Vomiting: No Temp > 96.8F: Yes Pain Manageable: Yes Adequeate Hydration: Yes Anesthesia Complications: No Block Receding Appropriately: Not Applicable Patient on Ventilator: No
--- NOTE | 2020-06-07 16:21 | Operative Report ---
Operative Report Operative Report: DOS: 06/07/20 SURGEON: Ayden Moody MD COLONOSCOPY REPORT PREOPERATIVE AND POSTOPERATIVE DIAGNOSIS: Rectal bleeding DESCRIPTION OF PROCEDURE: The colonoscope was passed to the cecum as identified by the ileocecal valve and appendiceal orifice. Scope was carefully withdrawn. Retroflexion was performed in the rectum. At the end of procedure, the scope was cleaned using normal technique. Vital signs monitored continuously throughout. SEDATION: Provided by [facility]iology [facility]. Quality of the prep was fair COMPLICATIONS: None. ESTIMATED BLOOD LOSS: None FINDINGS: * Significant diverticulosis scattered throughout the entire colon * Small amount of scattered stool throughout the colon slightly limiting views * Very small internal hemorrhoids * Remainder of exam is unremarkable RECOMMENDATIONS: Findings consistent with diverticular bleed, patient may be discharged with outpatient follow
[2020-06-07 16:36] VITALS: BP 168/91
== END 2020-06-07 19:43 | disposition home or self-care (01) ==
LOC: ED 15:17 → 4A 06-06 00:27
PROVIDERS: ADMIT Internal Medicine; ATTEND Internal Medicine
DX: K62.5 Hemorrhage of anus and rectum (principal); E87.6 Hypokalemia; I48.91 Unspecified atrial fibrillation; I11.0 Hypertensive heart disease with heart failure; I50.9 Heart failure, unspecified; I25.2 Old myocardial infarction; J44.9 Chronic obstructive pulmonary disease, unspecified; M19.90 Unspecified osteoarthritis, unspecified site; F17.200 Nicotine dependence, unspecified, uncomplicated; Z86.718 Personal history of other venous thrombosis and embolism; Z86.73 Personal history of transient ischemic attack (TIA), and cerebral infarction without residual deficits; Z71.6 Tobacco abuse counseling; Z95.5 Presence of coronary angioplasty implant and graft; Z95.1 Presence of aortocoronary bypass graft; Z79.82 Long term (current) use of aspirin; Z79.01 Long term (current) use of anticoagulants; Z79.899 Other long term (current) drug therapy
CPT/HCPCS: 36415; 45378; 80048; 80053; 81001; 85014; 85018; 85025; 85610; 85730; 93005; 96361; 96374; 96376; 99284; 99406; C9113; G0378; J2405; J2704; J3010; J3430; J7030; J7042; J7050

== ENCOUNTER 2020-06-08 06:41 | Observation (INO) | payer MEDICARE ==
[2020-06-08 07:11] LABS: Basophils # (Auto) 0.1 K/mm3 (0.0-0.1); Basophils % (Auto) 1.1 % (0.0-1.8); Eosinophils # (Auto) 0.1 K/mm3 (0.0-0.4); Eosinophils % (Auto) 2.2 % (0.0-4.3); Hematocrit 30.3 % (35.5-45.6); Hemoglobin 10.1 gm/dl (11.8-15.2); Lymphocytes # (Auto) 1.1 K/mm3 (1.2-5.4); Lymphocytes % (Auto) 21.4 % (13.4-35.0); Mean Corpuscular HGB Conc 33 % (32-34); Mean Corpuscular Volume 85 fl (84-94); Monocytes # (Auto) 0.7 K/mm3 (0.0-0.8); Monocytes % (Auto) 12.8 % (0.0-7.3); Platelet Count 203 K/mm3 (140-440); Red Blood Count 3.58 M/mm3 (3.65-5.03)
--- NOTE | 2020-06-08 07:14 | Cat Scan Report ---
CT HEAD WITHOUT CONTRAST INDICATION: Nerve deficits TECHNIQUE: Axial slices were obtained through the head. Coronal and sagittal reformatted images were obtained. COMPARISON: None available. FINDINGS: There is no intracranial hemorrhage or extra-axial fluid collection. Ventricles, basilar cisterns, an d sulci appear within normal limits for age. There is no mass lesion or midline shift. No acute felicia torial infarct is identified. There are microvascular ischemic changes in the periventricular white m atter. Bone windows demonstrate no acute osseous abnormality. Paranasal sinuses and mastoid air cells appear clear. TECHNIQUE: All CT scans at this facility use dose modulation, iterative reconstruction, automated ex posure control, weight based dosing, when appropriate, to reduce radiation dose to as low as reasonab ly achievable. IMPRESSION: 1. No acute intracranial abnormality. No intracranial hemorrhage is seen. There is microangiopathic change. Code stroke: Results of this examination were phoned to at 0607 hours central time Signer Name: Christiano Victor MD Signed: 06/08/2020 7:10 AM Workstation Name: [id number]
[2020-06-08 07:20] LABS: INR 1.22 (0.87-1.13)
[2020-06-08 07:21] LABS: Partial Thromboplastin Time 27.8 Sec. (24.2-36.6); Thrombin Time 16.7 Sec. (15.1-19.6)
[2020-06-08 07:22] LABS: Red Cell Distribution Width 21.1 % (13.2-15.2)
[2020-06-08 07:24] LABS: BUN/Creatinine Ratio 9; Blood Urea Nitrogen 9 mg/dL (9-20); Calcium 8.6 mg/dL (8.4-10.2); Hemolysis Index 2
--- NOTE | 2020-06-08 07:25 | Emergency Department Report ---
HPI - General Chief Complaint: Neuro Symptoms/Deficit Time Seen by Provider: 06/08/20 06:59 - HPI HPI: This is a 65-year-old -Al[place]ian male who presents to the emergency department via EMS from home with complaint of some slurred speech and left-si ded weakness starting around 5:30 AM this morning when he woke up. Patient says that he was getting up to go to the bathroom and found himself on the floor next to his bed. He had difficulty getting himself up when trying to use his left arm and leg but eventually was able to get himself up into bed. He then noticed some left arm and hand weakness when he was trying to place his phone on the de sk next to him and it dropped out of his hand. He also has some decrease sensation to that side and said "I could not even feel that the phone was in my hand." When the patient did call for EMS he also noticed that he had some slurred speech. He denies any headache, vision change, fever, chest pain, nausea, vomiting, shortness of breath. Patient has a past medical history that includes atrial fibrillation on anticoagulation, previous DVT, coronary artery disease with stents, COPD not oxygen dependent, CVA without residual deficits, CHF, hypertension. He is a tobacco smoker but denies any illicit drug use. His primary care physician is Dr. Casas. He did not take anything, nor was given anything, for his symptoms prior to presentation. ED Past Medical Hx - Past Medical History Hx Hypertension: Yes Hx CVA: Yes Hx Heart Attack/AMI: Yes (3 OH, last 2009) Hx Congestive Heart Failure: Yes Hx Diabetes: No Hx Deep Vein Thrombosis: Yes Hx Pulmonary Embolism: No Hx Renal Disease: Yes (acute renal failure in the past) Hx Arthritis: Yes Hx Seizures: Yes () Hx Asthma: No Hx COPD: Yes Hx Tuberculosis: No Hx Dementia: No Hx HIV: No Additional medical history: Heart Stent x 3 - Surgical History Hx Coronary Stent: Yes (x3) Hx Open Heart Surgery: Yes (CABG 2 bypass) Hx Pacemaker: No Hx Internal Defibrillator: No Hx Cholecystectomy: No Hx Breast Surgery: No - Social History Smoking Status: Current Every Day Smoker - Medications Home Medications: Home Medications Medication Instructions Recorded Confirmed Last Taken Type Aspirin 81 mg PO DAILY #30 tab.chew 06/15/18 06/08/2007/31/18 Rx Pravastatin [Pravachol (Nf)] 40 mg PO DAILY 08/01/18 06/08/20 07/31/18 History Warfarin Sodium [Jantoven] 7.5 mg PO DAILY 08/01/18 06/08/20 07/31/18 History amLODIPine 10 mg PO DAILY #30 tablet 06/07/20 06/08/20 Unknown Rx lisinopriL [Zestril TAB] 40 mg PO QDAY #30 tablet 06/07/20 06/08/20 Unknown Rx Furosemide [Lasix TAB] 40 mg PO DAILY 06/08/20 06/08/20 Unknown History cloNIDine [Catapres] 0.3 mg PO DAILY 06/08/20 06/08/20 Unknown History ED Review of Systems ROS: Stated complaint: CODE STROKE Other details as noted in HPI Comment: All other systems reviewed and negative Constitutional: denies: chills, fever Eyes: denies: eye pain, vision change ENT: denies: ear pain, throat pain Respiratory: denies: cough, shortness of breath Cardiovascular: denies: chest pain, palpitations Gastrointestinal: denies: abdominal pain, vomiting Genitourinary: denies: dysuria, discharge Musculoskeletal: denies: back pain, arthralgia Skin: denies: rash, lesions Neurological: weakness, numbness Physical Exam - Physical Exam Physical Exam: GENERAL: The patient is well-developed well-nourished. HENT: Normocephalic. Atraumatic. Patient has moist mucous membranes. EYES: Extraocular motions are intact. No nystagmus. No gaze preference. NECK: Supple. Trachea is midline. CHEST/LUNGS: Clear to auscultation. There is no respiratory distress noted. HEART/CARDIOVASCULAR: Regular. There is no tachycardia. There is no murmur. ABDOMEN: Abdomen is soft, nontender. Patient has normal bowel sounds. There is no abdominal distention. SKIN: Skin is warm and dry. NEURO: The patient is awake, alert, and oriented. The patient is cooperative. Patient has mild dysarthria. No facial asymmetry. There is a left upper extremity drift but does not hit the gurney. Cranial nerves II through XII grossly intact. There is some mild subjective decrease sensation to the left arm when compared to the right. MUSCULOSKELETAL: There is no tenderness or deformity. There is no limitation range of motion. ED Course - Reevaluation(s) Reevaluation #1: 06/08/20 15:02 Lab Results 06/08/20 06/08/20 06/08/20 Range/Units 06:43 06:43 06:43 WBC 5.2 (4.5-11.0) K/mm3 RBC 3.58 L (3.65-5.03) M/mm3 Hgb 10.1 L (11.8-15.2) gm/dl Hct 30.3 L (35.5-45.6) % MCV 85 (84-94) fl MCH 28 (28-32) pg MCHC 33 (32-34) % RDW 21.1 H (13.2-15.2) % Plt Count 203 (140-440) K/mm3 Lymph % (Auto) 21.4 (13.4-35.0) % [place] % (Auto) 12.8 H (0.0-7.3) % Eos % (Auto) 2.2 (0.0-4.3) % Baso % (Auto) 1.1 (0.0-1.8) % Lymph # (Auto) 1.1 L (1.2-5.4) K/mm3 [place] # (Auto) 0.7 (0.0-0.8) K/mm3 Eos # (Auto) 0.1 (0.0-0.4) K/mm3 Baso # (Auto) 0.1 (0.0-0.1) K/mm3 Seg Neutrophils % 62.5 (40.0-70.0) % Seg Neutrophils # 3.2 (1.8-7.7) K/mm3 PT 15.7 H (12.2-14.9) Sec. INR 1.22 H (0.87-1.13) APTT 27.8 (24.2-36.6) Sec. Thrombin Time 16.7 (15.1-19.6) Sec. Sodium 139 (137-145) mmol/L Potassium 3.4 L (3.6-5.0) mmol/L Chloride 103.6 (98-107) mmol/L Carbon Dioxide 24 (22-30) mmol/L Anion Gap 15 mmol/L BUN 9 (9-20) mg/dL Creatinine 1.0 (0.8-1.3) mg/dL Estimated GFR > 60 ml/min BUN/Creatinine Ratio 9 % Glucose 100 (75-100) mg/dL Calcium 8.6 (8.4-10.2) mg/dL Troponin T < 0.010 (0.00-0.029) ng/mL TSH (0.270-4.200) mlU/mL 06/08/20 Range/Units 07:32 WBC (4.5-11.0) K/mm3 RBC (3.65-5.03) M/mm3 Hgb (11.8-15.2) gm/dl Hct (35.5-45.6) % MCV (84-94) fl MCH (28-32) pg MCHC (32-34) % RDW (13.2-15.2) % Plt Count (140-440) K/mm3 Lymph % (Auto) (13.4-35.0) % [place] % (Auto) (0.0-7.3) % Eos % (Auto) (0.0-4.3) % Baso % (Auto) (0.0-1.8) % Lymph # (Auto) (1.2-5.4) K/mm3 [place] # (Auto) (0.0-0.8) K/mm3 Eos # (Auto) (0.0-0.4) K/mm3 Baso # (Auto) (0.0-0.1) K/mm3 Seg Neutrophils % (40.0-70.0) % Seg Neutrophils # (1.8-7.7) K/mm3 PT (12.2-14.9) Sec. INR (0.87-1.13) APTT (24.2-36.6) Sec. Thrombin Time (15.1-19.6) Sec. Sodium (137-145) mmol/L Potassium (3.6-5.0) mmol/L Chloride (98-107) mmol/L Carbon Dioxide (22-30) mmol/L Anion Gap mmol/L BUN (9-20) mg/dL Creatinine (0.8-1.3) mg/dL Estimated GFR ml/min BUN/Creatinine Ratio % Glucose (75-100) mg/dL Calcium (8.4-10.2) mg/dL Troponin T (0.00-0.029) ng/mL TSH 1.240 (0.270-4.200) mlU/mL - Consultations Consultation #1: 06/08/20 07:27 Patient was seen by the telemedicine neurologist upon arrival to the emergency department. Patient has a low NIH score, has recent rectal bleeding, and is anticoagulated on Coumadin, and therefore is not a TPA candidate. He did not feel that a CT angiography of the head and neck was necessary secondary to the low NIH score, but does recommend admission to the hospital for further stroke work-up. ED Medical Decision Making - Lab Data Result diagrams: 06/08/20 06:43 06/08/20 06:43 - EKG Data -: EKG Interpreted by Me - EKG Data When compared to previous EKG there are: no significant change Interpretation: unchanged when compared t (06/06/20), other (Atrial fibrillation, heart rate of 50 bpm, normal axis, LVH, no ST elevation [place]) - Radiology Data Radiology results: report reviewed CT HEAD WITHOUT CONTRAST INDICATION: Nerve deficits TECHNIQUE: Axial slices were obtained through the head. Coronal and sagittal reformatted images were obtained. COMPARISON: None available. FINDINGS: There is no intracranial hemorrhage or extra-axial fluid collection. Ventricles, basilar cisterns, and sulci appear within normal limits for age. There is no mass lesion or midline sh ift. No acute territorial infarct is identified. There are microvascular ischemic changes in the periventricular white matter. Bone windows demonstrate no acute osseous abnormality. Paranasal sinuses and mastoid air cells appear clear. TECHNIQUE: All CT scans at this facility use dose modulation, iterative reconstruction, automated exposure control, weight based dosing, when appropriate, to reduce radiation dose to as low as reasonably achievable. IMPRESSION: 1. No acute intracranial abnormality. No intracranial hemorrhage is seen. There is microangiopathic change. CT angio neck HISTORY: cva COMPARISON: None. TECHNIQUE: Routine CTA of the neck is performed. 3-D/MIP reformats were postprocessed. Percentage stenosis is determined by direct quantitative measurements of diseased internal carotid artery diameter compared with normal distal internal carotid artery reference segments or by criteria similar to NASCET where applicable. All CT scans at this location are performed using CT dose reduction for ALARA by means of automated exposure control. FINDINGS: Aortic arch: No significant abnormality. Cervical vertebral arteries: Please note the proximal vertebral arteries are well evaluated. No occlusion or hemodynamically significant stenosis. Common Carotid arteries: Proximal common carotid arteries were evaluated. No occlusion or hemodynamically significant stenosis. Internal carotid arteries: There is atherosclerosis with less than 50% stenosis of the bilateral proximal internal carotid arteries. Additional findings: Moderate bilateral pleural effusions. There is air seen within the right apex which contains a septation for example on image 29 of series 4 favoring paraseptal emphysema.. There is also mild paraseptal emphysematous changes of the left apex. Left apical IMPRESSION: 1. Please note that the proximal vertebral and common carotid arteries are not well evaluated secondary to phase of contrast. No hemodynamic significant stenosis or occlusion of the distal internal carotid artery and vertebral arteries. 2. Moderate bilateral pleural effusions. There is air seen within the right apex which is thought to be related to paraseptal emphysema. A small pneumothorax is a consideration but thought to be less likely given there is a septation present. CT angio head HISTORY: cva COMPARISON: None. TECHNIQUE: CTA of the head is performed after IV contrast. 3-D/MIP reformats were postprocessed. Percentage stenosis is determined by direct quantitative measurements of diseased internal carotid artery diameter compared with normal distal internal carotid artery reference segments or by criteria similar to NASCET where applicable. All CT scans at this location are performed using CT dose reduction for ALARA by means of automated exposure control. FINDINGS: CTA HEAD: Intracranial vertebral arteri es: No occlusion or significant stenosis. Basilar artery: No occlusion or significant stenosis. Posterior cerebral arteries: No occlusion or significant stenosis. Intracranial internal carotid arteries: Moderate quantity of atherosclerosis. No occlusion or significant stenosis. Anterior cerebral art eries: No occlusion or significant stenosis. Middle cerebral arteries: No occlusion or significant stenosis. No aneurysm. Additional findings: None. IMPRESSION: 1. CTA HEAD: No occlusion or significant stenosis of the major intracranial vasculature. - Medical Decision Making This patient presents as a code stroke secondary to some left-sided weakness and slurred speech. During my examination the patient has a mild left upper extremity drift, some subjective decrease sensation to the left arm, and some mild dysarthria. He was seen by the telemedicine neurologist upon arrival who agrees that the patient is not a TPA candidate as the patient woke up with the symptoms, had some recent rectal bleeding, and is anticoagulated on Coumadin/warfarin. CT scan of the head without contrast did not show any bleed, shift, mass, ischemia, or any other acute process. The patient later had a CT angiography of the head and neck that also did not show any thrombus or significant occlusion. Labs have been mostly unremarkable. Vital signs have been reassuring throughout his ED course including being afebrile. Patient will be admitted to the hospital for further evaluation and has been accepted for admission by the hospitalist service. Critical Care Time: Yes Critical care time in (mins) excluding proc time.: 35 Critical care attestation.: If time is entered above; I have spent that time in minutes in the direct care of this critically ill patient, excluding procedure time. Critical care time was spent on this patient in doing his initial evaluation, multiple reevaluations, ordering and interpretation of labs and imaging, multiple discussions with the patient, telemedicine neurology consultation. Critical Care Time: 35 minutes ED Disposition Clinical Impression: History of atrial fibrillation CVA (cerebral vascular accident) Qualifiers: CVA mechanism: unspecified Qualified Code(s): I63.9 - Cerebral infarction, unspecified HTN (hypertension) Qualifiers: Hypertension type: essential hypertension Qualified Code(s): I10 - Essential (primary) hypertension Anemia Qualifiers: Anemia type: unspecified type Qualified Code(s): D64.9 - Anemia, unspecified Disposition: DC-09 OP ADMIT IP TO THIS HOSP Is pt being admited?: Yes Condition: Serious Time of Disposition: 07:45 - Assessment Assessment Interval: Baseline - Level of Consciousness 1a. Level of Consciousness: alert/keenly responsive - LOC Questions 1b. LOC Questions: answers both correctly - LOC Command 1c. LOC Commands: performs tasks correctly - Best Gaze 2. Best Gaze: normal - Visual 3. Visual: no visual loss - Facial Palsy 4. Facial Palsy: normal symmetrical movement - Motor Arm 5a. Motor Arm Left: drift 5b. Motor Arm Right: no drift - Motor Leg 6a. Motor Leg Left: no drift 6b. Motor Leg Right: no drift - Limb Ataxia 7. Limb Ataxia: absent - Sensory 8. Sensory: mild/moderate sensory loss - Best Language 9. Best Language: no aphasia - Dysarthria 10. Dysarthria: mild/moderate dysarthria - Extinction and Inattention 11. Extinction/Inattention: no abnormality - Scoring Total Score: 3 Stroke Severity: Minor Stroke
[2020-06-08] MEDS ORDERED: POTASSIUM CHLORIDE ER 20 MEQ TAB PO ONE (07:26)
[2020-06-08] MEDS ORDERED: ONDANSETRON 4 MG/2 ML INJ IV PRN (10:00)
--- NOTE | 2020-06-08 11:46 | Cat Scan Report ---
CT angio neck HISTORY: cva COMPARISON: None. TECHNIQUE: Routine CTA of the neck is performed. 3-D/MIP reformats were postprocessed. Percentage st enosis is determined by direct quantitative measurements of diseased internal carotid artery diameter compared with normal distal internal carotid artery reference segments or by criteria similar to SERJIO CET where applicable. All CT scans at this location are performed using CT dose reduction for ALARA b y means of automated exposure control. FINDINGS: Aortic arch: No significant abnormality. Cervical vertebral arteries: Please note the proximal vertebral arteries are well evaluated. No occlu gildardo or hemodynamically significant stenosis. Common Carotid arteries: Proximal common carotid arteries were evaluated. No occlusion or hemodynamic ally significant stenosis. Internal carotid arteries: There is atherosclerosis with less than 50% stenosis of the bilateral prox imal internal carotid arteries. Additional findings: Moderate bilateral pleural effusions. There is air seen within the right apex wh ich contains a septation for example on image 29 of series 4 favoring paraseptal emphysema.. There is also mild paraseptal emphysematous changes of the left apex. Left apical IMPRESSION: 1. Please note that the proximal vertebral and common carotid arteries are not well evaluated seconda ry to phase of contrast. No hemodynamic significant stenosis or occlusion of the distal internal miranda tid artery and vertebral arteries. 2. Moderate bilateral pleural effusions. There is air seen within the right apex which is thought to be related to paraseptal emphysema. A small pneumothorax is a consideration but thought to be less li dong given there is a septation present. Signer Name: Benitez Lyons MD Signed: 06/08/2020 11:42 AM Workstation Name: [id number]
--- NOTE | 2020-06-08 12:26 | Cat Scan Report ---
CT angio head HISTORY: cva COMPARISON: None. TECHNIQUE: CTA of the head is performed after IV contrast. 3-D/MIP reformats were postprocessed. Per centage stenosis is determined by direct quantitative measurements of diseased internal carotid arter y diameter compared with normal distal internal carotid artery reference segments or by criteria bradford lar to NASCET where applicable. All CT scans at this location are performed using CT dose reduction f or ALARA by means of automated exposure control. FINDINGS: CTA HEAD: Intracranial vertebral arteries: No occlusion or significant stenosis. Basilar artery: No occlusion or significant stenosis. Posterior cerebral arteries: No occlusion or significant stenosis. Intracranial internal carotid arteries: Moderate quantity of atherosclerosis. No occlusion or signifi cant stenosis. Anterior cerebral arteries: No occlusion or significant stenosis. Middle cerebral arteries: No occlusion or significant stenosis. No aneurysm. Additional findings: None. IMPRESSION: 1. CTA HEAD: No occlusion or significant stenosis of the major intracranial vasculature. Signer Name: Benitez Lyons MD Signed: 06/08/2020 12:22 PM Workstation Name: [id number]
--- NOTE | 2020-06-08 13:04 | History and Physical Report ---
History of Present Illness Date of admission: 06/08/20 07:45 Chief complaint: Left sided weakness History of present illness: 65-year-old -[place] male with a medical history of atrial fibrillation on anticoagulation, CVA, Previous DVT, CAD, HTN, tobacco abuse who presented to the ED with a chief complaint of slurred speech with left-sided weakness that started on the morning of presentation. Patient noted symptoms when he woke up from sleep. He noticed weakness on the left side [arm and leg] as he was getting up to go to the bathroom early a.m.. He also said he had slurred speech. As he took the phone to make a call, he could not feel anything. He called EMS afterwards. Here in the ER, he had a CT head performed that was negative. His vitals on admission showed heart rate in the 40s to 50s and rhythm-irregular. Patient said that he sees Dr. Myers in the office and has been told that he needs a pacemaker. During my encounter, patient symptoms have almost completely resolved Past History Past Medical History: atrial fib, CAD, stroke, other (Tachybradycardia syndrome) Medications and Allergies Allergies Allergy/AdvReac Type Severity Reaction Status Date / Time No Known Allergies Allergy Verified 10/12/13 04:55 Home Medications Medication Instructions Recorded Confirmed Last Taken Type Aspirin 81 mg PO DAILY #30 tab.chew 06/15/18 06/08/20 07/31/18 Rx Pravastatin [Pravachol (Nf)] 40 mg PO DAILY 08/01/18 06/08/20 07/31/18 History Warfarin Sodium [Jantoven] 7.5 mg PO DAILY 08/01/18 06/08/20 07/31/18 History amLODIPine 10 mg PO DAILY #30 tablet 06/07/20 06/08/20 Unknown Rx lisinopriL [Zestril TAB] 40 mg PO QDAY #30 tablet 06/07/20 06/08/20 Unknown Rx Furosemide [Lasix TAB] 40 mg PO DAILY 06/08/20 06/08/20 Unknown History cloNIDine [Catapres] 0.3 mg PO DAILY 06/08/20 06/08/20 Unknown History Active Meds: Active Medications Acetaminophen (Tylenol) 650 mg PO Q4H PRN PRN Reason: Pain MILD(1-3)/Fever >100.5/PEAR[place] Aspirin (Halfprin Ec) 81 mg PO QDAY JOYCE Ondansetron HCl (Zofran) 4 mg IV Q8H PRN PRN Reason: Nausea And Vomiting Sodium Chloride (Sodium Chloride Flush Syringe 10 Ml) 10 ml IV BID JOYCE Sodium Chloride (Sodium Chloride Flush Syringe 10 Ml) 10 ml IV PRN PRN PRN Reason: LINE FLUSH Exam - Physical Exam Narrative exam: VITAL SIGNS: Reviewed. GENERAL: Awake and alert on response to questions HEAD: No signs of head trauma. EYES: Pupils are equal. Extraocular motions intact. EARS: Hearing grossly intact. MOUTH: Oropharynx is normal. NECK: No adenopathy, no JVD. CHEST: Chest with diminished breath sounds bilaterally. No wheezes, rales, or rhonchi. CARDIAC: Regular rate and rhythm. S1 and S2, without murmurs, gallops, or rubs. VASCULAR: No Edema. Peripheral pulses normal and equal in all extremities. ABDOMEN: Soft, non tender and non distended. No rebound or guarding, and no masses palpated. Bowel Sounds normal. MUSCULOSKELETAL: Good range of motion of all major joints. Extremities without clubbing, cyanosis or edema. NEUROLOGIC EXAM: Alert and oriented x3. No clear focal neurologic deficit at this time PSYCHIATRIC: Stable mood SKIN: No obvious lesions - Constitutional Vitals: Temp Pulse Resp BP Pulse Ox 50 L 25 H 167/97 97 06/08/20 07:31 06/08/20 07:31 06/08/20 07:31 06/08/20 07:31 HEART Score - HEART Score Troponin: Troponin T < 0.010 ng/mL (0.00-0.029) 06/08/20 06:43 Results - Labs CBC & Chem 7: 06/08/20 06:43 06/08/20 06:43 Labs: Laboratory Last Values WBC 5.2 K/mm3 (4.5-11.0) 06/08/20 06:43 RBC 3.58 M/mm3 (3.65-5.03) L 06/08/20 06:43 Hgb 10.1 gm/dl (11.8-15.2) L 06/08/20 06:43 Hct 30.3 % (35.5-45.6) L 06/08/20 06:43 MCV 85 fl (84-94) 06/08/20 06:43 MCH 28 pg (28-32) 06/08/20 06:43 MCHC 33 % (32-34) 06/08/20 06:43 RDW 21.1 % (13.2-15.2) H 06/08/20 06:43 Plt Count 203 K/mm3 (140-440) 06/08/20 06:43 Lymph % (Auto) 21.4 % (13.4-35.0) 06/08/20 06:43 [place] % (Auto) 12.8 % (0.0-7.3) H 06/08/20 06:43 Eos % (Auto) 2.2 % (0.0-4.3) 06/08/20 06:43 Baso % (Auto) 1.1 % (0.0-1.8) 06/08/20 06:43 Lymph # (Auto) 1.1 K/mm3 (1.2-5.4) L 06/08/20 06:43 [place] # (Auto) 0.7 K/mm3 (0.0-0.8) 06/08/20 06:43 Eos # (Auto) 0.1 K/mm3 (0.0-0.4) 06/08/20 06:43 Baso # (Auto) 0.1 K/mm3 (0.0-0.1) 06/08/20 06:43 Seg Neutrophils % 62.5 % (40.0-70.0) 06/08/20 06:43 Seg Neutrophils # 3.2 K/mm3 (1.8-7.7) 06/08/20 06:43 PT 15.7 Sec. (12.2-14.9) H 06/08/20 06:43 INR 1.22 (0.87-1.13) H 06/08/20 06:43 APTT 27.8 Sec. (24.2-36.6) 06/08/20 06:43 Thrombin Time 16.7 Sec. (15.1-19.6) 06/08/20 06:43 Sodium 139 mmol/L (137-145) 06/08/20 06:43 Potassium 3.4 mmol/L (3.6-5.0) L 06/08/20 06:43 Chloride 103.6 mmol/L (98-107) 06/08/20 06:43 Carbon Dioxide 24 mmol/L (22-30) 06/08/20 06:43 Anion Gap 15 mmol/L 06/08/20 06:43 BUN 9 mg/dL (9-20) 06/08/20 06:43 Creatinine 1.0 mg/dL (0.8-1.3) 06/08/20 06:43 Estimated GFR > 60 ml/min 06/08/20 06:43 BUN/Creatinine Ratio 9 % 06/08/20 06:43 Glucose 100 mg/dL (75-100) 06/08/20 06:43 Calcium 8.6 mg/dL (8.4-10.2) 06/08/20 06:43 Troponin T < 0.010 ng/mL (0.00-0.029) 06/08/20 06:43 TSH 1.240 mlU/mL (0.270-4.200) 06/08/20 07:32 Assessment and Plan Assessment and plan: TIA/CVA -Continue aspirin -Check echocardiogram, CTA head and neck -Statins -Neurology consult -Neuro check every 3 hours -Speech and swallow evaluation/PT/OT -Maintain n.p.o. for now Atrial fibrillation -Patient reports that he has been told by Dr Myers that he needs a pacemaker. His last appointment with cardiology team was a couple months ago as per patient -Likely has tachybradycardia syndrome -Patient is on low-dose beta-loretta Toprol 5 mg twice daily -Hold metoprolol for now -Cardiology consult to evaluate the need for pacemaker -Patient is on Coumadin for atrial fibrillation-INR ordered Chronic medical conditions-continue home medications PT/OT ordered GI prophylaxis-none needed at this time DVT prophylaxis-patient on Coumadin-INR ordered Full code
--- NOTE | 2020-06-08 13:29 | Consultation ---
History of Present Illness Consult date: 06/08/20 Requesting physician: OLIVIER MCADAMS Consult reason: bradycardia History of present illness: The pt is a 65 YO male with a past medical history of HFrEF, CMP, CAD s/p PCI and CABG in 2007, s/p AFlutter ablation in 07/2015, AFib, anticoagulated with coumadin, tachy-trisha syndrome, chronically declines PPM, HTN, CKD, COPD, tobacco use, ETOH use. He is followed in our office by Dr. Myers. He presented with c/o some slurred speech and left-sided weakness starting around 5:30 AM this morning when he woke up. Patient says that he was getting up to go to the bathroom and found himself on the floor next to his bed. He had difficulty getting himself up when trying to use his left arm and leg but eventually was able to get himself up into bed. He then noticed some left arm and hand weakness when he was trying to place his phone on the desk next to him and it dropped out of his hand. He also has some decrease sensation to that side and said "I could not even feel that the phone was in my hand." When the patient did call for EMS he also noticed that he had some slurred speech. Following arrival, head CT, head CTA and neck CTA with no acute findings. Pt was found to have AFib with SVR and thus cardiology has been consulted. Echo done 03/2019 showed EF 55-60%, mod LVH, severely dilated LA and RA, mild (mean gradient 12mmHg and OMA 1.43cm), mod TR. Lexiscan MPI stress test done 05/2018 was negative for ischemia, EF 39%. Per EP consultation in 01/2019: Had a lengthy discussion with the patient he would rather not have a pacemaker placed at this time. I had discussed with the patient my concern of his significant bradycardia likely secondary to beta loretta and clonidine use. At this time the patient is willing to try something different to help with sleeping. It sounds like the patient suffers from significant insomnia. Additionally currently on telemetry the patient's atrial fibrillation is running in the 90s to low 100s. I agreed to a trial of a lower dose beta loretta. The patient is aware these efforts may not be effective and he might still require a dual-chamber permanent pacemaker. Past History Past Medical History: other (as per HPI) Medications and Allergies Allergies Allergy/AdvReac Type Severity Reaction Status Date / Time No Known Allergies Allergy Verified 10/12/13 04:55 Home Medications Medication Instructions Recorded Confirmed Last Taken Type Aspirin 81 mg PO DAILY #30 tab.chew 06/15/18 06/08/20 07/31/18 Rx Pravastatin [Pravachol (Nf)] 40 mg PO DAILY 08/01/18 06/08/20 07/31/18 History Warfarin Sodium [Jantoven] 7.5 mg PO DAILY 08/01/18 06/08/20 07/31/18 History amLODIPine 10 mg PO DAILY #30 tablet 06/07/20 06/08/20 Unknown Rx lisinopriL [Zestril TAB] 40 mg PO QDAY #30 tablet 06/07/20 06/08/20 Unknown Rx Furosemide [Lasix TAB] 40 mg PO DAILY 06/08/20 06/08/20 Unknown History cloNIDine [Catapres] 0.3 mg PO DAILY 06/08/20 06/08/20 Unknown History Active Meds: Active Medications Acetaminophen (Tylenol) 650 mg PO Q4H PRN PRN Reason: Pain MILD(1-3)/Fever >100.5/PEARSON Amlodipine Besylate (Amlodipine) 10 mg PO DAILY [facility] Aspirin (Halfprin Ec) 81 mg PO QDAY [facility] Furosemide (Lasix) 40 mg PO DAILY [facility] Ondansetron HCl (Zofran) 4 mg IV Q8H PRN PRN Reason: Nausea And Vomiting Pravastatin Sodium (Pravachol) 40 mg PO DAILY [facility] Sodium Chloride (Sodium Chloride Flush Syringe 10 Ml) 10 ml IV BID JOYCE Sodium Chloride (Sodium Chloride Flush Syringe 10 Ml) 10 ml IV PRN PRN PRN Reason: LINE FLUSH Review of Systems Constitutional: no weight loss, no weight gain, no fever, no chills, no sweats Ears, nose, mouth and throat: no ear pain, no nose pain, no sinus pressure, no sinus pain Cardiovascular: no chest pain, no orthopnea, no palpitations, no rapid/irregular heart beat, no edema, no syncope, no lightheadedness, no shortness of breath, no dyspnea on exertion Respiratory: no cough, no shortness of breath, no dyspnea on exertion, no congestion, no wheezing, no pain on inspiration Gastrointestinal: no abdominal pain, no nausea, no vomiting, no diarrhea, no constipation, no change in bowel habits Genitourinary Male: no dysuria, no hematuria, no flank pain, no discharge, no urinary frequency, no urinary hesitancy Musculoskeletal: muscle weakness (left-sided), no neck stiffness, no neck pain, no shooting arm pain, no arm numbness/tingling, no low back pain, no shooting leg pain Integumentary: no rash, no pruritis, no redness, no sores, no wounds Neurological: weakness (left-sided), change in speech, no head injury, no s eizures, no syncope Psychiatric: no anxiety Endocrine: no cold intolerance, no heat intolerance Hematologic/Lymphatic: no easy bruising, no easy bleeding Allergic/Immunologic: no urticaria Physical Examination Vital Signs Pulse Ox 95 06/08/20 06:57 General appearance: no acute distress HEENT: Positive: PERRL, Normocephaly, Mucus Membranes Moist Neck: Positive: neck supple, trachea midline Cardiac: Positive: Reg Rate and Rhythm, S1/S2 Lungs: Positive: Decreased Breath Sounds Neuro: Positive: Grossly Intact, Other (difficulty chewing food, ? left-sided facial and mouth numbness) Abdomen: Negative: Tender Skin: Negative: Rash Musculoskeletal: No Pain Extremities: Absent: edema Results 06/08/20 06:43 06/08/20 06:43 Coagulation 06/08/20 Range/Units 06:43 PT 15.7 H (12.2-14.9) Sec. INR 1.22 H (0.87-1.13) APTT 27.8 (24.2-36.6) Sec. CBC 06/08/20 Range/Units 06:43 WBC 5.2 (4.5-11.0) K/mm3 RBC 3.58 L (3.65-5.03) M/mm3 Hgb 10.1 L (11.8-15.2) gm/dl Hct 30.3 L (35.5-45.6) % Plt Count 203 (140-440) K/mm3 Lymph # (Auto) 1.1 L (1.2-5.4) K/mm3 [place] # (Auto) 0.7 (0.0-0.8) K/mm3 Eos # (Auto) 0.1 (0.0-0.4) K/mm3 Baso # (Auto) 0.1 (0.0-0.1) K/mm3 Comprehensive Metabolic Panel 06/08/20 Range/Units 06:43 Sodium 139 (137-145) mmol/L Potassium 3.4 L (3.6-5.0) mmol/L Chloride 103.6 (98-107) mmol/L Carbon Dioxide 24 (22-30) mmol/L BUN 9 (9-20) mg/dL Creatinine 1.0 (0.8-1.3) mg/dL Glucose 100 (75-100) mg/dL Calcium 8.6 (8.4-10.2) mg/dL - Imaging and Cardiology Echo: report reviewed (03/2019 showed EF 55-60%, mod LVH, severely dilated LA and RA, mild (mean gradient 12mmHg and OMA 1.43cm), mod TR. ) EKG: report reviewed, image reviewed EKG interpretations - Telemetry EKG Rhythm: Atrial Fibrillation - EKG Supraventricular dysrhythmia: atrial fibrillation Assessment and Plan Pt has known tachy-trisha syndrome and has chronically declined PPM. He continues to take clonidine at night due to insomnia, which he has been advised against. Recommend discontinuation of AV darek blocking agents and initiate hydralazine. Cont coumadin with tx INR 2-3 if no contraindications to systemic AC from neurology standpoint. Obtain echo. Neuro w/u in progress. Recommend swallow evaluation as pt noted to be having difficulty swallowing food on evaluation. Will follow. The patient has been seen in conjunction with Dr. Redd who agrees with the assessment and plan of care. - Patient Problems (1) CVA (cerebral vascular accident) Current Visit: Yes Status: Suspected (2) Tachy-trisha syndrome Current Visit: Yes Status: Chronic (3) Atrial fibrillation Current Visit: Yes Status: Chronic (4) History of atrial flutter Current Visit: Yes Status: Chronic (5) S/P ablation of atrial flutter Current Visit: Yes Status: Chronic (6) Anticoagulated on Coumadin Current Visit: Yes Status: Chronic (7) CAD (coronary artery disease) Current Visit: Yes Status: Chronic (8) Hx of CABG Current Visit: Yes Status: Chronic (9) HTN (hypertension) Current Visit: Yes Status: Chronic Qualifiers: (10) COPD (chronic obstructive pulmonary disease) Current Visit: Yes Status: Chronic (11) Chronic kidney disease Current Visit: Yes Status: Chronic (12) Tobacco use Current Visit: Yes Status: Chronic (13) Alcohol use Current Visit: Yes Status: Chronic
[2020-06-08] MEDS: WARFARIN 7.5 MG TAB PO SCH (17:28)
[2020-06-08] MEDS: hydrALAZINE 25 MG TAB PO SCH ×2 (17:28→21:09)
[2020-06-08] MEDS ORDERED: hydrALAZINE 20 MG/1 ML INJ IV PRN (19:48)
[2020-06-08] MEDS: ACETAMINOPHEN 325 MG TAB PO PRN (21:09)
[2020-06-09 05:29] LABS: Basophils % (Auto) 0.5 % (0.0-1.8); Eosinophils # (Auto) 0.1 K/mm3 (0.0-0.4); Eosinophils % (Auto) 1.7 % (0.0-4.3); Hematocrit 34.4 % (35.5-45.6); Hemoglobin 11.3 gm/dl (11.8-15.2); Lymphocytes # (Auto) 1.1 K/mm3 (1.2-5.4); Lymphocytes % (Auto) 15.3 % (13.4-35.0); Mean Corpuscular HGB Conc 33 % (32-34); Mean Corpuscular Volume 85 fl (84-94); Monocytes % (Auto) 14.1 % (0.0-7.3); Platelet Count 237 K/mm3 (140-440); Red Blood Count 4.07 M/mm3 (3.65-5.03)
[2020-06-09 05:34] LABS: Red Cell Distribution Width 21.2 % (13.2-15.2)
[2020-06-09 05:37] LABS: INR 1.24 (0.87-1.13)
[2020-06-09 05:45] LABS: Alanine Aminotransferase 18 units/L (7-56); Albumin 3.6 g/dL (3.9-5); BUN/Creatinine Ratio 10; Blood Urea Nitrogen 10 mg/dL (9-20); Calcium 9.2 mg/dL (8.4-10.2); Chol/HDL Ratio 2.21 %; HDL Cholesterol 69 mg/dL (40-59); Hemolysis Index 8; LDL Cholesterol,Direct 78 mg/dL (50-130)
[2020-06-09] MEDS: hydrALAZINE 25 MG TAB PO SCH ×3 (06:16→21:15)
[2020-06-09] MEDS: ACETAMINOPHEN 325 MG TAB PO PRN (06:21)
[2020-06-09] MEDS ORDERED: cloNIDine 0.1 MG TAB PO STA (06:59)
[2020-06-09] MEDS: PRAVASTATIN 40 MG TAB PO SCH (09:55)
[2020-06-09] MEDS: FUROSEMIDE 40 MG TAB PO SCH (09:55)
[2020-06-09] MEDS: amLODIPine 10 MG TAB PO SCH (09:55)
[2020-06-09] MEDS: ASPIRIN EC 81 MG TAB PO SCH (09:56)
--- NOTE | 2020-06-09 10:25 | Progress Note ---
Assessment and Plan Pt has known tachy-trisha syndrome and has chronically declined PPM. He continues to take clonidine at night due to insomnia, which he has been advised against. Cont to avoid AV darek blocking agents and cont hydralazine. Cont coumadin with tx INR 2-3 if no contraindications to systemic AC from neurology standpoint. Neuro w/u in progress. Await echo. Pending echo does not show any significant abnormalities, nothing further to add from cardiac perspective. Recommend pt follow up in our office with Dr. Myers within 2 weeks ([phone]). The patient has been seen in conjunction with Dr. Redd who agrees with the assessment and plan of care. - Patient Problems (1) CVA (cerebral vascular accident) Current Visit: Yes Status: Acute Qualifiers: CVA mechanism: unspecified Qualified Code(s): I63.9 - Cerebral infarction, unspecified (2) Tachy-trisha syndrome Current Visit: Yes Status: Chronic (3) Atrial fibrillation Current Visit: Yes Status: Chronic (4) History of atrial flutter Current Visit: Yes Status: Chronic (5) S/P ablation of atrial flutter Current Visit: Yes Status: Chronic (6) Anticoagulated on Coumadin Current Visit: Yes Status: Chronic (7) CAD (coronary artery disease) Current Visit: Yes Status: Chronic (8) Hx of CABG Current Visit: Yes Status: Chronic (9) HTN (hypertension) Current Visit: Yes Status: Chronic Qualifiers: Hypertension type: essential hypertension Qualified Code(s): I10 - Essential (primary) hypertension (10) COPD (chronic obstructive pulmonary disease) Current Visit: Yes Status: Chronic (11) Chronic kidney disease Current Visit: Yes Status: Chronic (12) Tobacco use Current Visit: Yes Status: Chronic (13) Alcohol use Current Visit: Yes Status: Chronic Subjective Date of service: 06/09/20 Principal diagnosis: ? CVA; AFib SVR Interval history: pt resting up in chair, states he is feeling better today, is able to swallow better. tele reviewed -in AFib with HR 60s, HR low 30s overnight, pt asymptomatic. Objective Last Vital Signs Temp 97.7 F 06/09/20 08:30 Pulse 61 06/09/20 09:55 Resp 18 06/09/20 08:30 BP 186/101 06/09/20 09:55 Pulse Ox 97 06/09/20 08:30 - Physical Examination General: No Apparent Distress HEENT: Positive: PERRL, Normocephaly, Mucus Membranes Moist Neck: Positive: neck supple, trachea midline Cardiac: Positive: irregularly irregular, S1/S2 Lungs: Positive: Decreased Breath Sounds Neuro: Positive: Grossly Intact, Other (difficulty chewing food, ? left-sided facial and mouth numbness) Abdomen: Negative: Tender Skin: Negative: Rash Musculoskeletal: No Pain Extremities: Absent: edema - Labs and Meds Cardiac Enzymes 06/09/20 Range/Units 04:42 AST 24 (5-40) units/L Coagulation 06/09/20 Range/Units 04:42 PT 15.8 H (12.2-14.9) Sec. INR 1.24 H (0.87-1.13) Lipids 06/09/20 Range/Units 04:42 Triglycerides 78 (2-149) mg/dL Cholesterol 153 (50-199) mg/dL HDL Cholesterol 69 H (40-59) mg/dL Cholesterol/HDL Ratio 2.21 % CBC 06/09/20 Range/Units 04:42 WBC 6.9 (4.5-11.0) K/mm3 RBC 4.07 (3.65-5.03) M/mm3 Hgb 11.3 L (11.8-15.2) gm/dl Hct 34.4 L (35.5-45.6) % Plt Count 237 (140-440) K/mm3 Lymph # (Auto) 1.1 L (1.2-5.4) K/mm3 [place] # (Auto) 1.0 H (0.0-0.8) K/mm3 Eos # (Auto) 0.1 (0.0-0.4) K/mm3 Baso # (Auto) 0.0 (0.0-0.1) K/mm3 Comprehensive Metabolic Panel 06/09/20 Range/Units 04:42 Sodium 143 (137-145) mmol/L Potassium 3.6 (3.6-5.0) mmol/L Chloride 104.7 (98-107) mmol/L Carbon Dioxide 26 (22-30) mmol/L BUN 10 (9-20) mg/dL Creatinine 1.0 (0.8-1.3) mg/dL Glucose 90 (75-100) mg/dL Calcium 9.2 (8.4-10.2) mg/dL AST 24 (5-40) units/L ALT 18 (7-56) units/L Alkaline Phosphatase 101 (35-129) units/L Total Protein 7.2 (6.3-8.2) g/dL Albumin 3.6 L (3.9-5) g/dL - Imaging and Cardiology EKG: report reviewed, image reviewed Echo: report reviewed (03/2019 showed EF 55-60%, mod LVH, severely dilated LA and RA, mild (mean gradient 12mmHg and OMA 1.43cm), mod TR. )
[2020-06-09] MEDS ORDERED: FLU VACC QUAD 2020-2021 (6 months +)/PF 60 0.5 ML SYRINGE IM ONE (12:00)
--- NOTE | 2020-06-09 12:28 | Consultation ---
History of Present Illness Consult date: 06/08/20 History of present illness: [facility] Date of Service: 06/08/2020 06:31:14 Impression: Rule Out Acute Ischemic Stroke Comments/Sign-Out: Patient is a 65 year old man who presented with EMS as he started having slurred speech. Patient said he went to bed last night around midnight and was fine, he then woke up at 530 walked to the bathroom and noted his left side is weak and also noted slurred speech. He has hx of Afib and on Coumadin - Permissive HTN and IV fluids - Hold Coumdin until MRI is done and ASA for now - Stroke work up Mechanism of Stroke: Possible Thromboembolic Possible Cardioembolic Small Vessel Disease [facility] Infarct Metrics: Last Known Well: 06/08/2020 00:00:00 [employer] Notification Time: 06/08/2020 06:30:50 Arrival Time: 06/08/2020 06:40:00 Stamp Time: 06/08/2020 06:31:14 Time First Login Attempt: 06/08/2020 06:34:51 Video Start Time: 06/08/2020 06:34:51 Symptoms: Slurred speech NIHSS Start Assessment Time: 06/08/2020 06:54:49 Patient is not a candidate for Alteplase/Activase. Patient was not deemed candidate for Alteplase/Activase thrombolytics because of Patient last seen normal last night, was here and ms'ed yesterday as he was here for rectal bleeding. . Video End Time: 06/08/2020 07:01:00 CT head showed no acute hemorrhage or acute core infarct. CT head was reviewed. Clinical Presentation is not Suggestive of Large Vessel Occlusive Disease ED Physician notified of diagnostic impression and management plan on 06/08/2020 07:01:00 Our recommendations are outlined below. Recommendations: Activate Stroke Protocol Admission/Order Set Stroke/Telemetry Floor Neuro Checks Bedside Swallow Eval DVT Prophylaxis IV Fluids, Normal Saline Head of Bed 30 Degrees Euglycemia and Avoid Hyperthermia (PRN Acetaminophen) Antiplatelet Therapy Recommended Routine Consultation with Inhouse Neurology for Follow up Care Sign Out: Discussed with Emergency Department Provider History of Present Illness: Patient is a 65 year old Male. Patient was brought by EMS for symptoms of Slurred speech Patient is a 65 year old man who presented with EMS as he started having slurred speech. Patient said he went to bed last night around midnight and was fine, he then woke up at 530 walked to the bathroom and noted his left side is weak and also noted slurred speech. Examination: BP(144/98), Pulse(60s), Blood Glucose(99) 1A: Level of Consciousness - Alert; keenly responsive + 0 1B: Ask Month and Age - Both Questions Right + 0 1C: Blink Eyes & Squeeze Hands - Performs Both Tasks + 0 2: Test Horizontal Extraocular Movements - Normal + 0 3: Test Visual Andre - No Visual Loss + 0 4: Test Facial Palsy (Use Grimace if Obtunded) - Normal symmetry + 0 5A: Test Left Arm Motor Drift - Drift, but doesn't hit bed + 1 5B: Test Right Arm Motor Drift - No Drift for 10 Seconds + 0 6A: Test Left Leg Motor Drift - No Drift for 5 Seconds + 0 6B: Test Right Leg Motor Drift - No Drift for 5 Seconds + 0 7: Test Limb Ataxia (FNF/Heel-Ritter) - No Ataxia + 0 8: Test Sensation - Mild-Moderate Loss: Less Sharp/More Dull + 1 9: Test Language/Aphasia - Normal; No aphasia + 0 10: Test Dysarthria - Mild-Moderate Dysarthria: Slurring but can be understood + 1 11: Test Extinction/Inattention - No abnormality + 0 NIHSS Score: 3 Patient/Family was informed the Neurology Consult would happen via TeleHealth consult by way of interactive audio and video telecommunications and consented to receiving care in this manner. Due to the immediate potential for life-threatening deterioration due to underlying acute neurologic illness, I spent 40 minutes providing critical care. This time includes time for face to face visit via telemedicine, review of medical records, imaging studies and discussion of findings with providers, the patient and/or family. Dr Jacky Lobo [facility] Case [id number] Past History Past Medical History: other (as per HPI) Medications and Allergies Allergies Allergy/AdvReac Type Severity Reaction Status Date / Time No Known Allergies Allergy Verified 10/12/13 04:55 Home Medications Medication Instructions Recorded Confirmed Last Taken Type Aspirin 81 mg PO DAILY #30 tab.chew 06/15/18 06/08/20 07/31/18 Rx Pravastatin [Pravachol (Nf)] 40 mg PO DAILY 08/01/18 06/08/20 07/31/18 History Warfarin Sodium [Jantoven] 7.5 mg PO DAILY 08/01/18 06/08/20 07/31/18 History amLODIPine 10 mg PO DAILY #30 tablet 06/07/20 06/08/20 Unknown Rx lisinopriL [Zestril TAB] 40 mg PO QDAY #30 tablet 06/07/20 06/08/20 Unknown Rx Furosemide [Lasix TAB] 40 mg PO DAILY 06/08/20 06/08/20 Unknown History cloNIDine [Catapres] 0.3 mg PO DAILY 06/08/20 06/08/20 Unknown History Active Meds: Active Medications Acetaminophen (Tylenol) 650 mg PO Q4H PRN PRN Reason: Pain MILD(1-3)/Fever >100.5/[place]AR[place] Last Admin: 06/09/20 06:21 Dose: 650 mg Documented by: Amlodipine Besylate (Amlodipine) 10 mg PO DAILY [facility] Last Admin: 06/09/20 09:55 Dose: 10 mg Documented by: Aspirin (Halfprin Ec) 81 mg PO QDAY [facility] Last Admin: 06/09/20 09:56 Dose: 81 mg Documented by: Furosemide (Lasix) 40 mg PO DAILY [facility] Last Admin: 06/09/20 09:55 Dose: 40 mg Documented by: Hydralazine HCl (Apresoline) 50 mg PO Q8HR [facility] Last Admin: 06/09/20 06:16 Dose: 50 mg Documented by: Labetalol HCl (Labetalol) 10 mg IV Q6HR PRN PRN Reason: Blood Pressure Last Admin: 06/09/20 06:15 Dose: 10 mg Documented by: Ondansetron HCl (Zofran) 4 mg IV Q8H PRN PRN Reason: Nausea And Vomiting Pravastatin Sodium (Pravachol) 40 mg PO DAILY [facility] Last Admin: 06/09/20 09:55 Dose: 40 mg Documented by: Sodium Chloride (Sodium Chloride Flush Syringe 10 Ml) 10 ml IV BID [facility] Last Admin: 06/09/20 09:57 Dose: 10 ml Documented by: Sodium Chloride (Sodium Chloride Flush Syringe 10 Ml) 10 ml IV PRN PRN PRN Reason: LINE FLUSH Last Admin: 06/09/20 06:16 Dose: 10 ml Documented by: Warfarin Sodium (Coumadin) 7.5 mg PO DAILY@1700 [facility] Last Admin: 06/08/20 17:28 Dose: 7.5 mg Documented by: Physical Examination - Vital Signs Vital Signs: Vital Signs Pulse Ox 95 06/08/20 06:57 Results - Laboratory Findings CBC and BMP: 06/09/20 04:42 06/09/20 04:42 Abnormal Lab Findings: Abnormal Labs 06/08/20 06/08/20 06/08/20 06:43 06:43 06:43 RBC 3.58 L Hgb 10.1 L Hct 30.3 L RDW 21.1 H [place] % (Auto) 12.8 H Lymph # (Auto) 1.1 L [place] # (Auto) PT 15.7 H INR 1.22 H Potassium 3.4 L Albumin HDL Cholesterol 06/09/20 06/09/20 06/09/20 04:42 04:42 04:42 RBC Hgb 11.3 L Hct 34.4 L RDW 21.2 H [place] % (Auto) 14.1 H Lymph # (Auto) 1.1 L [place] # (Auto) 1.0 H PT 15.8 H INR 1.24 H Potassium Albumin 3.6 L HDL Cholesterol 69 H
--- NOTE | 2020-06-09 14:13 | Progress Note ---
Assessment and Plan Assessment and plan: TIA/CVA -Continue aspirin -Statins -Neurology consulted. -Awaiting echocardiogram -Neuro check every 3 hours Bradycardia with underlying atrial fibrillation -Has tachybradycardia syndrome as per cardiology -Patient has been told about getting a pacemaker but he continues to refuse -College recommendations appreciated -Patient to follow-up with cardiology in the office in 2 to 4 weeks after discharge Chronic medical conditions-continue home medications GI prophylaxis-none needed at this time DVT prophylaxis-patient on Coumadin-INR ordered Full code History Interval history: Patient seen and examined at bedside this morning. He symptoms have improved. He tolerated diet today. He has been walking around the floors with no problems. Awaiting complete neurologic work-up. Neurology consulted Hospitalist Physical - Physical exam Narrative exam: VITAL SIGNS: Reviewed. GENERAL: Awake and alert on response to questions HEAD: No signs of head trauma. EYES: Pupils are equal. Extraocular motions intact. EARS: Hearing grossly intact. MOUTH: Oropharynx is normal. NECK: No adenopathy, no JVD. CHEST: Chest with diminished breath sounds bilaterally. No wheezes, rales, or rhonchi. CARDIAC: Regular rate and rhythm. S1 and S2, without murmurs, gallops, or rubs. VASCULAR: No Edema. Peripheral pulses normal and equal in all extremities. ABDOMEN: Soft, non tender and non distended. No rebound or guarding, and no masses palpated. Bowel Sounds normal. MUSCULOSKELETAL: Good range of motion of all major joints. Extremities without clubbing, cyanosis or edema. NEUROLOGIC EXAM: Alert and oriented x3. No clear focal neurologic deficit at this time PSYCHIATRIC: Stable mood SKIN: No obvious lesions - Constitutional Vitals: Temp Pulse Resp BP Pulse Ox 97.7 F 92 H 18 185/117 97 06/09/20 08:30 06/09/20 13:49 06/09/20 08:30 06/09/20 13:49 06/09/20 08:30 HEART Score - HEART Score Troponin: Troponin T < 0.010 ng/mL (0.00-0.029) 06/08/20 06:43 Results - Labs CBC & Chem 7: 06/09/20 04:42 06/09/20 04:42 Labs: Laboratory Last Values WBC 6.9 K/mm3 (4.5-11.0) 06/09/20 04:42 RBC 4.07 M/mm3 (3.65-5.03) 06/09/20 04:42 Hgb 11.3 gm/dl (11.8-15.2) L 06/09/20 04:42 Hct 34.4 % (35.5-45.6) L 06/09/20 04:42 MCV 85 fl (84-94) 06/09/20 04:42 MCH 28 pg (28-32) 06/09/20 04:42 MCHC 33 % (32-34) 06/09/20 04:42 RDW 21.2 % (13.2-15.2) H 06/09/20 04:42 Plt Count 237 K/mm3 (140-440) 06/09/20 04:42 Lymph % (Auto) 15.3 % (13.4-35.0) 06/09/20 04:42 [place] % (Auto) 14.1 % (0.0-7.3) H 06/09/20 04:42 Eos % (Auto) 1.7 % (0.0-4.3) 06/09/20 04:42 Baso % (Auto) 0.5 % (0.0-1.8) 06/09/20 04:42 Lymph # (Auto) 1.1 K/mm3 (1.2-5.4) L 06/09/20 04:42 [place] # (Auto) 1.0 K/mm3 (0.0-0.8) H 06/09/20 04:42 Eos # (Auto) 0.1 K/mm3 (0.0-0.4) 06/09/20 04:42 Baso # (Auto) 0.0 K/mm3 (0.0-0.1) 06/09/20 04:42 Seg Neutrophils % 68.4 % (40.0-70.0) 06/09/20 04:42 Seg Neutrophils # 4.8 K/mm3 (1.8-7.7) 06/09/20 04:42 PT 15.8 Sec. (12.2-14.9) H 06/09/20 04:42 INR 1.24 (0.87-1.13) H 06/09/20 04:42 APTT 27.8 Sec. (24.2-36.6) 06/08/20 06:43 Thrombin Time 16.7 Sec. (15.1-19.6) 06/08/20 06:43 Sodium 143 mmol/L (137-145) 06/09/20 04:42 Potassium 3.6 mmol/L (3.6-5.0) 06/09/20 04:42 Chloride 104.7 mmol/L (98-107) 06/09/20 04:42 Carbon Dioxide 26 mmol/L (22-30) 06/09/20 04:42 Anion Gap 16 mmol/L 06/09/20 04:42 BUN 10 mg/dL (9-20) 06/09/20 04:42 Creatinine 1.0 mg/dL (0.8-1.3) 06/09/20 04:42 Estimated GFR > 60 ml/min 06/09/20 04:42 BUN/Creatinine Ratio 10 % 06/09/20 04:42 Glucose 90 mg/dL (75-100) 06/09/20 04:42 Hemoglobin A1c 5.7 % (4-6) 06/09/20 04:42 Calcium 9.2 mg/dL (8.4-10.2) 06/09/20 04:42 Total Bilirubin 0.80 mg/dL (0.1-1.2) 06/09/20 04:42 AST 24 units/L (5-40) 06/09/20 04:42 ALT 18 units/L (7-56) 06/09/20 04:42 Alkaline Phosphatase 101 units/L (35-129) 06/09/20 04:42 Troponin T < 0.010 ng/mL (0.00-0.029) 06/08/20 06:43 Total Protein 7.2 g/dL (6.3-8.2) 06/09/20 04:42 Albumin 3.6 g/dL (3.9-5) L 06/09/20 04:42 Albumin/Globulin Ratio 1.0 % 06/09/20 04:42 Triglycerides 78 mg/dL (2-149) 06/09/20 04:42 Cholesterol 153 mg/dL (50-199) 06/09/20 04:42 LDL Cholesterol Direct 78 mg/dL (50-130) 06/09/20 04:42 HDL Cholesterol 69 mg/dL (40-59) H 06/09/20 04:42 Cholesterol/HDL Ratio 2.21 % 06/09/20 04:42 TSH 1.240 mlU/mL (0.270-4.200) 06/08/20 07:32 [place]/IV: Voiding Method Toilet IV Catheter Type [Right Peripheral IV Forearm] IV Catheter Type [Right Hand] Peripheral IV Active Medications - Current Medications Current Medications: Generic Name Dose Route Start Last Admin Trade Name Freq PRN Reason Stop Dose Admin Acetaminophen 650 mg 06/08/20 10:00 06/09/20 06:21 Tylenol PO 650 mg Q4H PRN Administration Pain MILD(1-3)/Fever >100.5/PEARSON Amlodipine Besylate 10 mg 06/09/20 10:00 06/09/20 09:55 Amlodipine PO 10 mg DAILY JOYCE Administration Aspirin 81 mg 06/09/20 10:00 06/09/20 09:56 Halfprin Ec PO 81 mg QDAY JOYCE Administration Furosemide 40 mg 06/09/20 10:00 06/09/20 09:55 Lasix PO 40 mg DAILY JOYCE Administration Hydralazine HCl 50 mg 06/08/20 15:00 06/09/20 13:49 Apresoline PO 50 mg Q8HR JOYCE Administration Labetalol HCl 10 mg 06/08/20 19:53 06/09/20 06:15 Labetalol IV 10 mg Q6HR PRN Administration Blood Pressure Ondansetron HCl 4 mg 06/08/20 10:00 Zofran IV Q8H PRN Nausea And Vomiting Pravastatin Sodium 40 mg 06/09/20 10:00 06/09/20 09:55 Pravachol PO 40 mg DAILY JOYCE Administration Sodium Chloride 10 ml 06/08/20 10:00 06/09/20 09:57 Sodium Chloride Flush Syringe 10 Ml IV 10 ml BID JOYCE Administration Sodium Chloride 10 ml 06/08/20 10:00 06/09/20 06:16 Sodium Chloride Flush Syringe 10 Ml IV 10 ml PRN PRN Administration LINE FLUSH Warfarin Sodium 7.5 mg 06/08/20 17:00 06/08/20 17:28 Coumadin PO 7.5 mg DAILY@1700 JOYCE Administration Nutrition/Malnutrition Assess - Dietary Evaluation Nutrition/Malnutrition Findings: Nutrition Notes Start: 06/09/20 11:10 Freq: Status: Active Protocol: Document 06/09/20 11:10 SHAMIKA (Rec: 06/09/20 11:28 SHAMIKA [id number]) Co-Sign 06/09/20 11:10 LM Nutrition Notes 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 Pt had prior education on coumadin, but needed a review. Pt states he plans on switching from coumadin to another medication once at home. Pt reports decreased appetite with aging and typically only eats 1 meal /day. Pt states he no longer has difficulty swallowing or chewing. 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 No Is Patient Ambulatory and/or Out of Bed Yes REE-([facility]-ambulatory/OOB) [ 2276.339 NUTR.MSJOOB] Kcal/Kg value to use for calculation 22 Approximate Energy Requirements Using 2065 kcal/Kg Calculation Used for Recommendations Kcal/kg Additional Notes Pro: 75-94 g (0.8-1 g/kg) Fluid: 1 ml/kcal Nutrition Intervention Change Diet Order: Continue Cardiac Teaching Recipient Patient Learning Readiness Good Teaching Methods Discussion,Handout Response to Teaching Verbalize understanding Education Handouts Provided Vitamin K and Medications Barriers to Learning No Barriers RD phone number provided Yes Patient aware of follow up options Yes Goal #1 Meet at least 75% energy and protein needs Anticipated Discharge Needs: Cardiac diet Follow-Up By: 06/13/20 Additional Comments F/U for diet tolerance and intakes
--- NOTE | 2020-06-09 16:56 | Consultation ---
History of Present Illness Consult date: 06/09/20 Reason for Consult: left arm, leg weakness Chief complaint: left arm and leg weakness and unable to walk. He also reported slurred speech. History of present illness: This is a 65-year-old gentleman who is presented with the symptoms of left arm and left leg weakness as he reported as it did not work. He also reported some slurred speech. He denied any headache, blurred vision, double vision, or loss of vision. He reported that he has history of atrial fibrillation and had been on Coumadin with therapeutic dose. He reported that he had colonoscopy procedure performed and he was off of Coumadin for 2 days. His INR is 1.2 when he came to the emergency room. He still feels some numbness in the left hand as well as mild weakness in left arm and left leg. He also reported that his speech is still slurred. He had CT scan of the brain done in the emergency room which was reported negative for acute changes. Past History Past Medical History: atrial fib, other (as per HPI) Medications and Allergies Allergies Allergy/AdvReac Type Severity Reaction Status Date / Time No Known Allergies Allergy Verified 10/12/13 04:55 Home Medications Medication Instructions Recorded Confirmed Last Taken Type Aspirin 81 mg PO DAILY #30 tab.chew 06/15/18 06/08/20 07/31/18 Rx Pravastatin [Pravachol (Nf)] 40 mg PO DAILY 08/01/18 06/08/20 07/31/18 History Warfarin Sodium [Jantoven] 7.5 mg PO DAILY 08/01/18 06/08/20 07/31/18 History amLODIPine 10 mg PO DAILY #30 tablet 06/07/20 06/08/20 Unknown Rx lisinopriL [Zestril TAB] 40 mg PO QDAY #30 tablet 06/07/20 06/08/20 Unknown Rx Furosemide [Lasix TAB] 40 mg PO DAILY 06/08/20 06/08/20 Unknown History cloNIDine [Catapres] 0.3 mg PO DAILY 06/08/20 06/08/20 Unknown History Active Meds: Active Medications Acetaminophen (Tylenol) 650 mg PO Q4H PRN PRN Reason: Pain MILD(1-3)/Fever >100.5/PEARSON Last Admin: 06/09/20 06:21 Dose: 650 mg Documented by: Amlodipine Besylate (Amlodipine) 10 mg PO DAILY [facility] Last Admin: 06/09/20 09:55 Dose: 10 mg Documented by: Aspirin (Halfprin Ec) 81 mg PO QDAY [facility] Last Admin: 06/09/20 09:56 Dose: 81 mg Documented by: Furosemide (Lasix) 40 mg PO DAILY [facility] Last Admin: 06/09/20 09:55 Dose: 40 mg Documented by: Hydralazine HCl (Apresoline) 50 mg PO Q8HR [facility] Last Admin: 06/09/20 13:49 Dose: 50 mg Documented by: Labetalol HCl (Labetalol) 10 mg IV Q6HR PRN PRN Reason: Blood Pressure Last Admin: 06/09/20 06:15 Dose: 10 mg Documented by: Ondansetron HCl (Zofran) 4 mg IV Q8H PRN PRN Reason: Nausea And Vomiting Pravastatin Sodium (Pravachol) 40 mg PO DAILY [facility] Last Admin: 06/09/20 09:55 Dose: 40 mg Documented by: Sodium Chloride (Sodium Chloride Flush Syringe 10 Ml) 10 ml IV BID [facility] Last Admin: 06/09/20 09:57 Dose: 10 ml Documented by: Sodium Chloride (Sodium Chloride Flush Syringe 10 Ml) 10 ml IV PRN PRN PRN Reason: LINE FLUSH Last Admin: 06/09/20 06:16 Dose: 10 ml Documented by: Warfarin Sodium (Coumadin) 7.5 mg PO DAILY@1700 [facility] Last Admin: 06/08/20 17:28 Dose: 7.5 mg Documented by: Review of Systems Constitutional: weakness Neurological: weakness, numbness, change in speech, sensory deficit Physical Examination - Vital Signs Vital Signs: Vital Signs Pulse Ox 95 06/08/20 06:57 - Neurologic Cranial nerve examination: PERRL, EOMI, V1/V2/V3 grossly intact, face symmetric, tongue midline, intact, intact shoulder shrug Speech examination: other (mild aphasia) Sensorimotor examination: intact Detailed motor examination: other (mild left side weakness subjective) Cerebellar examination: other (normal) - Level of Consciousness 1a. Level of Consciousness: alert/keenly responsive - LOC Questions 1b. LOC Questions: answers both correctly - LOC Command 1c. LOC Commands: performs tasks correctly - Best Gaze 2. Best Gaze: normal - Visual 3. Visual: no visual loss - Facial Palsy 4. Facial Palsy: normal symmetrical movement - Motor Arm 5a. Motor Arm Left: no drift 5b. Motor Arm Right: no drift - Motor Leg 6a. Motor Leg Left: no drift 6b. Motor Leg Right: no drift - Limb Ataxia 7. Limb Ataxia: absent - Sensory 8. Sensory: normal - Best Language 9. Best Language: no aphasia - Dysarthria 10. Dysarthria: mild/moderate dysarthria Results - Laboratory Findings CBC and BMP: 06/09/20 04:42 06/09/20 04:42 Abnormal Lab Findings: Abnormal Labs 06/08/20 06/08/20 06/08/20 06:43 06:43 06:43 RBC 3.58 L Hgb 10.1 L Hct 30.3 L RDW 21.1 H [place] % (Auto) 12.8 H Lymph # (Auto) 1.1 L [place] # (Auto) PT 15.7 H INR 1.22 H Potassium 3.4 L Albumin HDL Cholesterol 06/09/20 06/09/20 06/09/20 04:42 04:42 04:42 RBC Hgb 11.3 L Hct 34.4 L RDW 21.2 H [place] % (Auto) 14.1 H Lymph # (Auto) 1.1 L [place] # (Auto) 1.0 H PT 15.8 H INR 1.24 H Potassium Albumin 3.6 L HDL Cholesterol 69 H - Diagnostic Findings Additional findings: CT scan of the brain, CTA of head and neck are unremarkable. 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 4) please keep blood pressure <180/90 millimeters of mercury for 3 days and then bring it down to 196832/80 mmHg with the help of oral medications. 5) DVT prophylaxis 6) please provide him PT OT and speech evaluation and treatment. 7) patient needs strong education about compliance to his anticoagulation 8) follow-up visit with his own neurologist in 2 weeks upon discharge home. I discussed at greater length with the patient about his condition and treatment options. He agreed with the plan. I answered all the questions posed by the patient to his base satisfaction. (3) Atrial fibrillation Current Visit: Yes Status: Chronic
[2020-06-09] MEDS: WARFARIN 7.5 MG TAB PO SCH (19:02)
[2020-06-09] MEDS ORDERED: hydrALAZINE 20 MG/1 ML INJ IV SCH (19:34)
[2020-06-09] MEDS: ZOLPIDEM 5 MG TAB PO PRN (21:15)
[2020-06-10] MEDS: hydrALAZINE 25 MG TAB PO SCH ×3 (05:14→21:21)
[2020-06-10 08:21] LABS: INR 1.3 (0.87-1.13)
[2020-06-10] MEDS: PRAVASTATIN 40 MG TAB PO SCH ×2 (08:48→09:59)
[2020-06-10] MEDS: ASPIRIN EC 81 MG TAB PO SCH ×2 (08:48→09:58)
[2020-06-10] MEDS: FUROSEMIDE 40 MG TAB PO SCH ×2 (08:49→09:58)
[2020-06-10] MEDS: amLODIPine 10 MG TAB PO SCH ×2 (08:49→09:58)
[2020-06-10] MEDS: RIVAROXABAN 20 MG TAB PO SCH ×2 (08:49→09:59)
[2020-06-10] MEDS ORDERED: RIVAROXABAN 10 MG TAB PO SCH (10:00)
--- NOTE | 2020-06-10 11:04 | Magnetic Resonance Report ---
NONENHANCED MR SCAN OF THE BRAIN: INDICATION / CLINICAL INFORMATION: Left-sided numbness and weakness TECHNIQUE: Multiplanar, multisequence MR images of the brain obtained. COMPARISON: CT scan of the head from 06/08/2020 FINDINGS: BRAIN / INTRACRANIAL CONTENTS: Abnormal MRI scan Subacute infarction in the right diaz radiata extending towards the posterior right insular and lat eral right precentral gyrus; infarction more than 8 hours old (increased FLAIR signal intensity) but less than 3 days old (low ADC values). No hemorrhagic changes (now susceptibility changes in the grad ient echo images Chronic focal ischemic lesions in the cerebellar hemispheres more on the left; chronic ischemic lesio ns in the tomer; periventricular and deep hemispheric white matter lesions ([place] 1) due to chronic small vessel disease. CRANIOCERVICAL JUNCTION: No significant abnormality. VASCULAR FLOW-VOIDS: No significant abnormality. ORBITS: No significant abnormality of visualized orbits. SINUSES / MASTOIDS: Mucosal thickening in the left mastoid air cells; retention cyst in the maxillary sinuses ADDITIONAL FINDINGS: None. IMPRESSION: Subacute nonhemorrhagic infarction due to branch occlusion in the right diaz radiata extending towa rds the right inferior frontal gyrus Signer Name: Richard Goldman MD Signed: 06/10/2020 11:00 AM Workstation Name: [id number]
--- NOTE | 2020-06-10 12:54 | Discharge Summary ---
Providers - Providers Date of Admission: 06/08/20 07:45 Date of discharge: 06/10/20 Attending physician: OLIVIER MCADAMS 06/08/20 12:40 Consult to Physician [CONS] Routine Comment: Consulting Provider: TONY TOM Physician Instructions: Reason For Exam: Bradycardia 06/08/20 13:09 Speech Therapy Evaluation and Treat [CONS] Stat Reason For Exam: Difficulty swallowing and sensation 06/08/20 13:10 Consult to Physician [CONS] Routine Comment: Consulting Provider: DAYAN MCDOWELL Physician Instructions: Reason For Exam: CVA 06/08/20 13:40 Physical Therapy Evaluation and Treat [CONS] Urgent Comment: Reason For Exam: CVA 06/09/20 12:35 Consult to Physician [CONS] Routine Comment: Consulting Provider: JUSTIN GARBER Physician Instructions: Reason For Exam: CVA Primary care physician: DISHA MANCINI Hospitalization Condition: Serious Hospital course: 65-year-old -[place] male with a medical history of atrial fibrillation on anticoagulation, CVA, Previous DVT, CAD, HTN, tobacco abuse who presented to the ED with a chief complaint of slurred speech with left-sided weakness that started on the morning of presentation. Patient noted symptoms when he woke up from sleep. He noticed weakness on the left side [arm and leg] as he was getting up to go to the bathroom early a.m.. He also said he had slurred speech. As he took the phone to make a call, he could not feel anything. He called EMS afterwards. Here in the ER, he had a CT head performed that was negative. His vitals on admission showed heart rate in the 40s to 50s and rhythm-irregular. Patient said that he sees Dr. Tom in the office and has been told that he needs a pacemaker. During my encounter, patient symptoms have almost completely resolved. Hospital course Patient was seen by cardiology during this admission and patient refused to have a pacemaker placer. He has tachybradycardia syndrome. 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 For his stroke, he was evaluated by neurologist and recommended an MRI brain. His CTA head and neck showed no acute occlusion of any major vessels. He has a history of atrial fibrillation patient was on Coumadin prior to admission but INR was subtherapeutic. As per neurology and cardiology recommendations, he has been switched to Xarelto. He has been advised to take Xarelto until instructed to stop by neurologist and window dresser. Patient had an MRI brain performed that showed right-sided nonhemorrhagic CVA involving the frontal lobe and diaz radiata. Patient is able to ambulate without any issues. He is also able to eat without any problem. Patient is very eager to go home and has been walking around floors. His BP medications have been resumed and BP is better. Patient is currently stable to be discharged to follow-up with his doctors. He has been advised to continue medications as prescribed and follow-up with neurology and cardiology in the office. Disposition: DC-01 TO HOME OR SELFCARE - Discharge Diagnoses (1) CVA (cerebral vascular accident) Status: Acute Qualifiers: CVA mechanism: unspecified Qualified Code(s): I63.9 - Cerebral infarction, unspecified (2) History of atrial fibrillation Status: Acute (3) Subtherapeutic international normalized ratio (INR) Status: Acute (4) Tachy-trisha syndrome Status: Chronic Core Measure Documentation - Palliative Care Palliative Care/ Comfort Measures: Not Applicable - Core Measures Any of the following diagnoses?: stroke - Stroke Discharge Requirements Statin for LDL = or >70 mg/dl on DC: Yes Anticoag for atrial fib/atrial flutter: Yes Antithrombotic for ischemic stroke: No Reason for no antithrombotic on DC: Not Indicated Exam - Physical Exam Narrative exam: VITAL SIGNS: Reviewed. GENERAL: Awake and alert on response to questions HEAD: No signs of head trauma. EYES: Pupils are equal. Extraocular motions intact. EARS: Hearing grossly intact. MOUTH: Oropharynx is normal. NECK: No adenopathy, no JVD. CHEST: Chest with diminished breath sounds bilaterally. No wheezes, rales, or rhonchi. CARDIAC: Regular rate and rhythm. S1 and S2, without murmurs, gallops, or rubs. VASCULAR: No Edema. Peripheral pulses normal and equal in all extremities. ABDOMEN: Soft, non tender and non distended. No rebound or guarding, and no masses palpated. Bowel Sounds normal. MUSCULOSKELETAL: Good range of motion of all major joints. Extremities without clubbing, cyanosis or edema. NEUROLOGIC EXAM: Alert and oriented x3. No clear focal neurologic deficit at this time PSYCHIATRIC: Stable mood SKIN: No obvious lesions - Constitutional Vitals: Temp Pulse Resp BP Pulse Ox 98.1 F 73 20 196/118 96 06/10/20 08:30 06/10/20 08:30 06/10/20 08:30 06/10/20 08:30 06/10/20 08:30 Plan Diet: low fat, low cholesterol, low salt Additional Instructions: Continue Xarelto. Ensure you take medications as prescribed. Follow-up with neurology and cardiology in the office Follow up with: DISHA MANCINI MD [Primary Care Provider] - 3-5 Days TONY TOM MD [Staff Physician] - 7 Days AMENA CERDA MD [Staff Physician] - 7 Days Forms: Warfarin Discharge Instruction Prescriptions: AtorvaSTATin [Lipitor] 40 mg PO QHS 30 Days #30 tab amLODIPine 10 mg PO DAILY #30 tablet hydrALAZINE [Apresoline TAB] 50 mg PO Q8HR #90 tablet cloNIDine [Catapres] 0.3 mg PO TID #90 Rivaroxaban [Xarelto] 20 mg PO DAILY #30 tablet
[2020-06-10] MEDS: cloNIDine 0.1 MG TAB PO SCH ×2 (16:34→18:46)
[2020-06-10] MEDS: ZOLPIDEM 5 MG TAB PO PRN (21:21)
[2020-06-10] MEDS: ACETAMINOPHEN 325 MG TAB PO PRN (21:24)
[2020-06-11] MEDS: hydrALAZINE 25 MG TAB PO SCH (05:08)
[2020-06-11] MEDS: cloNIDine 0.1 MG TAB PO SCH (05:08)
[2020-06-11] MEDS ORDERED: LISINOPRIL 20 MG TAB PO SCH ×3 (07:53→12:31)
[2020-06-11 08:00] LABS: INR 1.48 (0.87-1.13)
[2020-06-11] MEDS ORDERED: hydrALAZINE 20 MG/1 ML INJ IV ONE (09:31)
[2020-06-11] MEDS: PRAVASTATIN 40 MG TAB PO SCH (10:01)
[2020-06-11] MEDS: RIVAROXABAN 20 MG TAB PO SCH (10:01)
[2020-06-11] MEDS: ASPIRIN EC 81 MG TAB PO SCH (10:01)
[2020-06-11] MEDS: amLODIPine 10 MG TAB PO SCH (10:01)
[2020-06-11] MEDS: FUROSEMIDE 40 MG TAB PO SCH (10:02)
--- NOTE | 2020-06-11 11:41 | Progress Note ---
Assessment and Plan Assessment and plan: Acute right CVA -MRI showed right CVA -Now on xarelto -DC cancelled today due to elevated BP. BP medications adjusted -Needs to follow up with neurology for CVA Bradycardia with underlying atrial fibrillation -Has tachybradycardia syndrome as per cardiology -Patient has been told about getting a pacemaker but he continues to refuse -College recommendations appreciated -Patient to follow-up with cardiology in the office in 2 to 4 weeks after discharge Chronic medical conditions-continue home medications GI prophylaxis-none needed at this time DVT prophylaxis-xarelto Full code - Patient Problems (1) CVA (cerebral vascular accident) Current Visit: Yes Status: Acute Qualifiers: CVA mechanism: unspecified Qualified Code(s): I63.9 - Cerebral infarction, unspecified (2) History of atrial fibrillation Current Visit: Yes Status: Acute (3) Subtherapeutic international normalized ratio (INR) Current Visit: Yes Status: Acute (4) Tachy-trisha syndrome Current Visit: Yes Status: Chronic History Interval history: Patient seen and examined at bedside this morning. MRI results discussed with patient. BP still elevated. DC cancelled Hospitalist Physical - Physical exam Narrative exam: VITAL SIGNS: Reviewed. GENERAL: Awake and alert on response to questions HEAD: No signs of head trauma. EYES: Pupils are equal. Extraocular motions intact. EARS: Hearing grossly intact. MOUTH: Oropharynx is normal. NECK: No adenopathy, no JVD. CHEST: Chest with diminished breath sounds bilaterally. No wheezes, rales, or rhonchi. CARDIAC: Regular rate and rhythm. S1 and S2, without murmurs, gallops, or rubs. VASCULAR: No Edema. Peripheral pulses normal and equal in all extremities. ABDOMEN: Soft, non tender and non distended. No rebound or guarding, and no masses palpated. Bowel Sounds normal. MUSCULOSKELETAL: Good range of motion of all major joints. Extremities without clubbing, cyanosis or edema. NEUROLOGIC EXAM: Alert and oriented x3. No clear focal neurologic deficit at this time PSYCHIATRIC: Stable mood SKIN: No obvious lesions - Constitutional Vitals: Temp Pulse Resp BP Pulse Ox 98.3 F 69 20 198/118 94 06/11/20 08:19 06/11/20 08:28 06/11/20 08:19 06/11/20 08:19 06/11/20 08:50 General appearance: Present: no acute distress HEART Score - HEART Score Troponin: Troponin T < 0.010 ng/mL (0.00-0.029) 06/08/20 06:43 Results - Labs CBC & Chem 7: 06/09/20 04:42 06/09/20 04:42 Labs: Laboratory Last Values WBC 6.9 K/mm3 (4.5-11.0) 06/09/20 04:42 RBC 4.07 M/mm3 (3.65-5.03) 06/09/20 04:42 Hgb 11.3 gm/dl (11.8-15.2) L 06/09/20 04:42 Hct 34.4 % (35.5-45.6) L 06/09/20 04:42 MCV 85 fl (84-94) 06/09/20 04:42 MCH 28 pg (28-32) 06/09/20 04:42 MCHC 33 % (32-34) 06/09/20 04:42 RDW 21.2 % (13.2-15.2) H 06/09/20 04:42 Plt Count 237 K/mm3 (140-440) 06/09/20 04:42 Lymph % (Auto) 15.3 % (13.4-35.0) 06/09/20 04:42 [place] % (Auto) 14.1 % (0.0-7.3) H 06/09/20 04:42 Eos % (Auto) 1.7 % (0.0-4.3) 06/09/20 04:42 Baso % (Auto) 0.5 % (0.0-1.8) 06/09/20 04:42 Lymph # (Auto) 1.1 K/mm3 (1.2-5.4) L 06/09/20 04:42 [place] # (Auto) 1.0 K/mm3 (0.0-0.8) H 06/09/20 04:42 Eos # (Auto) 0.1 K/mm3 (0.0-0.4) 06/09/20 04:42 Baso # (Auto) 0.0 K/mm3 (0.0-0.1) 06/09/20 04:42 Seg Neutrophils % 68.4 % (40.0-70.0) 06/09/20 04:42 Seg Neutrophils # 4.8 K/mm3 (1.8-7.7) 06/09/20 04:42 PT 18.1 Sec. (12.2-14.9) H 06/11/20 06:32 INR 1.48 (0.87-1.13) H 06/11/20 06:32 APTT 27.8 Sec. (24.2-36.6) 06/08/20 06:43 Thrombin Time 16.7 Sec. (15.1-19.6) 06/08/20 06:43 Sodium 143 mmol/L (137-145) 06/09/20 04:42 Potassium 3.6 mmol/L (3.6-5.0) 06/09/20 04:42 Chloride 104.7 mmol/L (98-107) 06/09/20 04:42 Carbon Dioxide 26 mmol/L (22-30) 06/09/20 04:42 Anion Gap 16 mmol/L 06/09/20 04:42 BUN 10 mg/dL (9-20) 06/09/20 04:42 Creatinine 1.0 mg/dL (0.8-1.3) 06/09/20 04:42 Estimated GFR > 60 ml/min 06/09/20 04:42 BUN/Creatinine Ratio 10 % 06/09/20 04:42 Glucose 90 mg/dL (75-100) 06/09/20 04:42 Hemoglobin A1c 5.7 % (4-6) 06/09/20 04:42 Calcium 9.2 mg/dL (8.4-10.2) 06/09/20 04:42 Total Bilirubin 0.80 mg/dL (0.1-1.2) 06/09/20 04:42 AST 24 units/L (5-40) 06/09/20 04:42 ALT 18 units/L (7-56) 06/09/20 04:42 Alkaline Phosphatase 101 units/L (35-129) 06/09/20 04:42 Troponin T < 0.010 ng/mL (0.00-0.029) 06/08/20 06:43 Total Protein 7.2 g/dL (6.3-8.2) 06/09/20 04:42 Albumin 3.6 g/dL (3.9-5) L 06/09/20 04:42 Albumin/Globulin Ratio 1.0 % 06/09/20 04:42 Triglycerides 78 mg/dL (2-149) 06/09/20 04:42 Cholesterol 153 mg/dL (50-199) 06/09/20 04:42 LDL Cholesterol Direct 78 mg/dL (50-130) 06/09/20 04:42 HDL Cholesterol 69 mg/dL (40-59) H 06/09/20 04:42 Cholesterol/HDL Ratio 2.21 % 06/09/20 04:42 TSH 1.240 mlU/mL (0.270-4.200) 06/08/20 07:32 Nasal Screen MRSA (PCR) Negative (Negative) 06/08/20 17:19 - Diagnostic Impressions Diagnostic Impressions: Echocardiogram 06/08/20 10:31 Transthoracic Echocardiogram Indication: CVA BP: 186/101 HR: 75 Conclusions *The left atrium is severely dilated. *The right atrial cavity size is severely dilated. *There is mild mitral regurgitation. *There is moderate to severe tricuspid regurgitation. *There is trace aortic regurgitation. *The left ventricular chamber size is normal. *Moderate concentric left ventricular hypertrophy is observed. *Global left ventricular systolic function is moderate to severely decreased. *The estimated ejection fraction is 30-35%. *The left ventricular diastolic filling pattern is restrictive. *The right ventricle is moderately dilated. *Right ventricular global systolic function is mildly reduced. *There is evidence of severe pulmonary hypertension. *The right ventricular systolic pressure is calculated at 68 mmHg. Findings Left Ventricle: The left ventricular chamber size is normal. Moderate concentric left ventricular hypertrophy is observed. Moderate global hypokinesis of the left ventricle is observed. Global left ventricular systolic function is moderate to severely decreased. The estimated ejection fraction is 30-35%. The left ventricular diastolic filling pattern is restrictive. Left Atrium: The left atrium is severely dilated. Right Ventricle: The right ventricle is moderately dilated. The right ventricular global systolic function is mildly reduced. Right Atrium: The right atrial cavity size is severely dilated. No atrial septal defected is demonstrated by color Doppler and agitated saline contrast. Aortic Valve: The aortic valve is trileaflet. Mild aortic leaflet calcification is visualized. There is trace of aortic regurgitation. There is no evidence of aortic stenosis. Mitral Valve: The mitral valve leaflets are mildly thickened. Mild mitral leaflet calcification is visualized. There is mild mitral regurgitation. There is no evidence of mitral stenosis. Tricuspid Valve: The tricuspid valve leaflets are normal. There is moderate to severe tricuspid regurgitation. The right ventricular systolic pressure is calculated at 68 mmHg. There is evidence of severe pulmonary hypertension. Pulmonic Valve: The pulmonic valve appears normal. There is mild pulmonic regurgitation. Pericardium: The pericardium appears normal. There is no pericardial effusion. Aorta: There is no dilatation of the ascending aorta. There is no dilatation of the aortic root. Venous: The inferior vena cava is dilated. There is less than 50% respiratory change in the inferior vena cava dimension. Contrast: Intravenous agitated saline contrast was used to assess intracardiac shunting. Measurements Chambers 2D Name Value Normal Range IVSd (2D) 1.58 cm (0.6 - 1.1) LVPWd (2D) 1.5 cm (0.6 - 1.1) LVIDd (2D) 5.22 cm (3.7 - 5.6) LVIDs (2D) 4.52 cm (2 - 3.8) LV FS (2D) 13.38 % - Ao root diameter (2D) 3.41 cm (2 - 3.7) Volumes/Mass Name Value Normal Range LA ESV SP 4CH (A/L) 163.44 ml - LA ESV SP 2CH (A/L) 186.27 ml - LA ESV BP (A/L) 178.02 ml - LA ESV BP (A/L) index 83.19 ml/m2 - LA ESV SP 4CH (MOD) 154.94 ml - LA ESV SP 2CH (MOD) 182.63 ml - LA ESV BP (MOD) 171.21 ml - LA ESV BP (MOD) index 80 ml/m2 - Diastolic/Systolic Function Name Value Normal Range MV E-wave Vmax 1.14 m/sec - MV deceleration time 164.82 msec - MV A-wave Vmax 0.38 m/sec - MV E:A ratio 3 ratio - Aortic Valve Name Value Normal Range AV Vmax 1.91 m/sec - AV VTI 31.36 cm - AV peak gradient 14.58 mmHg - AV mean gradient 8.35 mmHg - LVOT diameter 2.06 cm - LVOT Vmax 1.03 m/sec - LVOT VTI 17.43 cm - LVOT peak gradient 4.25 mmHg - LVOT mean gradient 1.88 mmHg - SV LVOT 58 ml - OMA (continuity Vmax) 1.8 cm2 - OMA (continuity VTI) 1.85 cm2 - AR PHT 716.58 msec - AR peak gradient 42.4 mmHg - Ascending Ao 3.96 cm - Mitral Valve Name Value Normal Range MR Vmax 4.51 m/sec - Tricuspid Valve Name Value Normal Range TR Vmax 3.65 m/sec - TR peak gradient 53 mmHg - RAP 15 mmHg - RVSP 68 mmHg - IVC diameter 2.52 cm (1.2 - 2.3) Pulmonic Valve/Qp:Qs Name Value Normal Range PV Vmax 0.7 m/sec - PV peak gradient 1.95 mmHg - MS end-diastolic Vmax 2.46 m/sec - PV acceleration time 83.73 msec - [place]/IV: Voiding Method Toilet IV Catheter Type [Right Peripheral IV Forearm] IV Catheter Type [Right Hand] Peripheral IV Active Medications - Current Medications Current Medications: Generic Name Dose Route Start Last Admin Trade Name Freq PRN Reason Stop Dose Admin Acetaminophen 650 mg 06/08/20 10:00 06/10/20 21:24 Tylenol PO 650 mg Q4H PRN Administration Pain MILD(1-3)/Fever >100.5/PEARSON Amlodipine Besylate 10 mg 06/09/20 10:00 06/11/20 10:01 Amlodipine PO 10 mg DAILY JOYCE Administration Aspirin 81 mg 06/09/20 10:06/11/20 10:01 Halfprin Ec PO 81 mg QDAY JOYCE Administration Clonidine HCl 0.3 mg 06/11/20 14:00 Catapres PO Q8HR JOYCE Furosemide 40 mg 06/09/20 10:00 06/11/20 10:02 Lasix PO 40 mg DAILY JOYCE Administration Hydralazine HCl 50 mg 06/08/20 15:00 06/11/20 05:08 Apresoline PO 50 mg Q8HR JOYCE Administration Lisinopril 20 mg 06/11/20 07:53 06/11/20 10:02 Zestril PO 20 mg QDAY JOYCE Administration Ondansetron HCl 4 mg 06/08/20 10:00 Zofran IV Q8H PRN Nausea And Vomiting Pravastatin Sodium 40 mg 06/09/20 10:00 06/11/20 10:01 Pravachol PO 40 mg DAILY JOYCE Administration Rivaroxaban 20 mg 06/10/20 10:00 06/11/20 10:01 Xarelto PO 20 mg DAILY JOYCE Administration Sodium Chloride 10 ml 06/08/20 10:00 06/11/20 10:02 Sodium Chloride Flush Syringe 10 Ml IV 10 ml BID JOYCE Administration Sodium Chloride 10 ml 06/08/20 10:00 06/09/20 06:16 Sodium Chloride Flush Syringe 10 Ml IV 10 ml PRN PRN Administration LINE FLUSH Zolpidem Tartrate 5 mg 06/09/20 20:52 06/10/20 21:21 Ambien PO 5 mg QHS PRN Administration Sleep Nutrition/Malnutrition Assess - Dietary Evaluation Nutrition/Malnutrition Findings: Nutrition Notes Start: 06/09/20 11:10 Freq: Status: Active Protocol: Document 06/09/20 11:10 SHAMIKA (Rec: 06/09/20 11:28 SHAMIKA [id number]) Co-Sign 06/09/20 11:10 LM Nutrition Notes 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 Pt had prior education on coumadin, but needed a review. Pt states he plans on switching from coumadin to another medication once at home. Pt reports decreased appetite with aging and typically only eats 1 meal /day. Pt states he no longer has difficulty swallowing or chewing. Burn Absent Trauma Absent GI Symptoms None Food Allergy No Current % PO Negligible Minimum of two criteria No Energy Intake (non-severe) <75% Estimated Energy Requirement >7 days #2 Nutrition Diagnosis Food and nutrition-related knowledge deficit Etiology Limited prior diet education As Evidenced by Signs and Symptoms Pt had questions #1 Nutrition Diagnosis Inadequate oral intake Etiology CVA, decreased appetite As Evidenced by Signs and Symptoms Pt consuming 1 meal/day BENCH MOVER and 0% since adm Is patient on ventilator? No Is Patient Ambulatory and/or Out of Bed Yes REE-(Climax-St. Jeor-ambulatory/OOB) [ 2276.339 NUTR.MSJOOB] Kcal/Kg value to use for calculation 22 Approximate Energy Requirements Using 2065 kcal/Kg Calculation Used for Recommendations Kcal/kg Additional Notes Pro: 75-94 g (0.8-1 g/kg) Fluid: 1 ml/kcal Nutrition Intervention Change Diet Order: Continue Cardiac Teaching Recipient Patient Learning Readiness Good Teaching Methods Discussion,Handout Response to Teaching Verbalize understanding Education Handouts Provided Vitamin K and Medications Barriers to Learning No Barriers RD phone number provided Yes Patient aware of follow up options Yes Goal #1 Meet at least 75% energy and protein needs Anticipated Discharge Needs: Cardiac diet Follow-Up By: 06/13/20 Additional Comments F/U for diet tolerance and intakes
[2020-06-11] MEDS ORDERED: cloNIDine 0.1 MG TAB PO ONE (12:00)
--- NOTE | 2020-06-11 12:21 | Progress Note ---
Assessment and Plan Will optimize antihypertensive regimen and avoid AV blocking medications. I have discussed recent echo findings with the patient. He may benefit from ICD/PPM. He had apparently declined previously. However, at this point, he tells me that he had consulted with some of his friends that have pacemakers and he has agreed to proceed. However, he would rather not to do it on this admission and wants to be discharged home first. At this point, his BP needs to be optimized. - Patient Problems (1) CVA (cerebral vascular accident) Current Visit: Yes Status: Acute Qualifiers: CVA mechanism: unspecified Qualified Code(s): I63.9 - Cerebral infarction, unspecified (2) Ischemic cardiomyopathy Current Visit: Yes Status: Chronic (3) Moderate to severe pulmonary hypertension Current Visit: Yes Status: Acute (4) COPD (chronic obstructive pulmonary disease) Current Visit: Yes Status: Chronic (5) Accelerated hypertension Current Visit: Yes Status: Acute (6) Tachy-trisha syndrome Current Visit: Yes Status: Chronic (7) Permanent atrial fibrillation Current Visit: Yes Status: Chronic (8) NSVT (nonsustained ventricular tachycardia) Current Visit: Yes Status: Acute (9) CAD (coronary artery disease) Current Visit: Yes Status: Chronic Qualifiers: Coronary Disease-Associated Artery/Lesion type: [place] artery (10) Hx of CABG Current Visit: Yes Status: Chronic (11) S/P ablation of atrial flutter Current Visit: Yes Status: Chronic (12) History of atrial flutter Current Visit: Yes Status: Chronic Subjective Date of service: 06/11/20 Principal diagnosis: AF, CVA, HTN Interval history: I was asked to reconsult on patient today on account of ventricular tachycardia noted overnight. The patient has no new complaint. His BP is however significantly elevated. On the monitor, he had only one 3 beat run of nonsustained VT. Otherwise, he was mostly in sinus rhythm/sinus bradycardia. Objective Vital Signs Temp Pulse Resp BP BP Pulse Ox 06/11/20 08:50 94 06/11/20 08:28 69 06/11/20 08:19 98.3 F 69 20 198/118 92 06/11/20 04:42 98.0 F 62 18 178/96 90 06/11/20 00:00 54 L 06/10/20 23:58 97.7 F 58 L 18 181/88 92 06/10/20 20:12 98.0 F 60 18 183/92 93 06/10/20 15:53 197/112 06/10/20 14:17 186/99 - Physical Examination General: No Apparent Distress HEENT: Positive: Normocephaly, Mucus Membranes Moist Neck: Positive: neck supple, trachea midline Cardiac: Positive: Reg Rate and Rhythm, S1/S2 Lungs: Positive: clear to auscultation Neuro: Positive: Grossly Intact, Other (difficulty chewing food, ? left-sided facial and mouth numbness) Abdomen: Positive: Soft, Active Bowel Sounds. Negative: Tender Skin: Negative: Rash Musculoskeletal: Normal Range of Motion Extremities: Absent: edema - Labs and Meds Coagulation 06/11/20 Range/Units 06:32 PT 18.1 H (12.2-14.9) Sec. INR 1.48 H (0.87-1.13) - Imaging and Cardiology EKG: image reviewed Echo: report reviewed (03/2019 showed EF 55-60%, mod LVH, severely dilated LA and RA, mild (mean gradient 12mmHg and OMA 1.43cm), mod TR. ) - Telemetry EKG Rhythm: Sinus Rhythm - EKG Ventricular dysrhythmias: non-sustained ventricular
[2020-06-11] MEDS ORDERED: hydrALAZINE 100 MG TAB PO SCH (12:30)
[2020-06-11 12:35] VITALS: BP 170/102
[2020-06-11] MEDS ORDERED: DOXAZOSIN 4 MG TAB PO SCH (13:00)
[2020-06-11] MEDS ORDERED: cloNIDine 0.1 MG TAB PO SCH ×3 (14:00→22:00)
== END 2020-06-11 15:39 | disposition home or self-care (01) ==
LOC: ED 06:41 → 4A 07:45
PROVIDERS: ADMIT Internal Medicine; ATTEND Internal Medicine
DX: I63.9 Cerebral infarction, unspecified (principal); I13.0 Hypertensive heart and chronic kidney disease with heart failure and stage 1 through stage 4 chronic kidney disease, or unspecified chronic kidney disease; I50.9 Heart failure, unspecified; N18.9 Chronic kidney disease, unspecified; G45.9 Transient cerebral ischemic attack, unspecified; I48.91 Unspecified atrial fibrillation; I25.10 Atherosclerotic heart disease of native coronary artery without angina pectoris; R56.9 Unspecified convulsions; I25.5 Ischemic cardiomyopathy; I47.1 Supraventricular tachycardia; I49.5 Sick sinus syndrome; M19.90 Unspecified osteoarthritis, unspecified site; J44.9 Chronic obstructive pulmonary disease, unspecified; R29.703 NIHSS score 3; D68.9 Coagulation defect, unspecified; F17.210 Nicotine dependence, cigarettes, uncomplicated; D64.9 Anemia, unspecified; Z79.82 Long term (current) use of aspirin; Z86.79 Personal history of other diseases of the circulatory system; Z79.01 Long term (current) use of anticoagulants; Z86.718 Personal history of other venous thrombosis and embolism; Z95.1 Presence of aortocoronary bypass graft
CPT/HCPCS: 36415; 70450; 70496; 70498; 70551; 80048; 80053; 80061; 83036; 84443; 84484; 85025; 85610; 85670; 85730; 87641; 92610; 93005; 93306; 94760; 96374; 96375; 96376; 97162; 99291; 99406; A9270; G0378; J0360; Q9967; 90686